=== PATIENT | male | born 1965 | race Two or more races ===

== ENCOUNTER 2020-06-17 11:24 | Outpatient (REF) | payer OTHER, SELFPAY ==
--- NOTE | 2020-06-17 11:34 | XR_ITS ---
EXAMINATION: XR ANKLE, RIGHT CLINICAL INFORMATION: Pain COMPARISON: None TECHNIQUE: AP, lateral, and mortise views of the right ankle. FINDINGS: Bone alignment is normal. No fracture or dislocation is seen. There may be an ankle joint effusion. The ankle mortise is otherwise normal. There is lateral soft tissue swelling. There is a plantar calcaneal spur. XR/XR ankle RT 2V IMPRESSION: No fracture or dislocation. Lateral soft tissue swelling. Question ankle joint effusion.
== END 2020-06-17 11:25 | disposition home or self-care (01) ==
LOC: HO.XRAY 11:24
PROVIDERS: Visit Provider Emergency Medicine
DX: M25.571 Pain in right ankle and joints of right foot (principal)
CPT/HCPCS: 73600

== ENCOUNTER 2020-07-15 09:00 | Outpatient (RCR) | payer OTHER, SELFPAY | END 2020-07-22 08:16 | disposition home or self-care (01) | LOC: HO.PTCHIC 09:00 | PROVIDERS: PCP Internal Medicine Geriatric Medicine; Visit Provider Family Medicine | DX: M25.571 Pain in right ankle and joints of right foot (principal) | CPT/HCPCS: 97110; 97161 ==

== ENCOUNTER → 2020-08-28 14:38 | Outpatient (BNVA) | payer OTHER, SELFPAY | PROVIDERS: PCP Internal Medicine Geriatric Medicine; Visit Provider Physician Assistant Medical | DX: Z76.89 Persons encountering health services in other specified circumstances (principal) | CPT/HCPCS: G0296 ==

== ENCOUNTER 2020-10-01 12:47 | Outpatient (REF) | payer OTHER, SELFPAY ==
--- NOTE | ~2020-10-01 | CT_ITS ---
EXAMINATION: CT CHEST SCREENING CLINICAL INFORMATION: Smoking history COMPARISON: Previous chest CT scans most recent April 2018 TECHNIQUE: Multidetector volumetric CT imaging of the chest is performed without contrast using low dose technique. Additional 2D coronal and sagittal reformatted images and axial 3D maximum intensity projection (MIP) images are generated on the CT workstation. This CT examination was performed using dose optimization techniques as appropriate, variously including the following: *Automated exposure control *Adjustment of mA and/or kV according to patient size (this includes techniques or standardized protocols for targeted exams where dose is matched to indication/reason for exam; i.e. extremities or head) *Use of iterative reconstruction technique DLP: 63 mGy-cm FINDINGS: LUNGS: There are small bilateral pulmonary nodules that are stable. Largest pulmonary nodule is a 4 x 8 mm peripheral or subpleural right lower lobe nodule adjacent to the fissure axial image 237 series 5. This likely represents a subpleural lymph node. No new pulmonary nodule is seen. There is scarring or subsegmental atelectasis in the lingula. The lungs are otherwise clear. No endobronchial or endotracheal lesion is seen. MEDIASTINUM: The mediastinum is normal. PLEURA: There is no pleural effusion. No pleural mass or thickening. AXILLA: No lymphadenopathy. UPPER ABDOMEN: There is a low-attenuation right adrenal nodule measuring 2 cm that is stable. The may be diverticulosis of the colon. OSSEOUS STRUCTURES: Unremarkable. CT/CT lung screening IMPRESSION: Stable pulmonary nodules. ASSESSMENT: Lung-RADS category 2: Benign RECOMMENDATION: Annual low-dose chest CT follow-up recommended.
== END 2020-10-01 12:48 | disposition home or self-care (01) ==
LOC: HO.CT 12:47
PROVIDERS: PCP Internal Medicine Geriatric Medicine; Visit Provider Physician Assistant Medical
DX: Z12.2 Encounter for screening for malignant neoplasm of respiratory organs (principal); F17.210 Nicotine dependence, cigarettes, uncomplicated
CPT/HCPCS: 71271

== ENCOUNTER 2020-11-05 14:46 | Outpatient (REF) | payer OTHER, SELFPAY | END 2020-11-05 14:47 | disposition home or self-care (01) | LOC: HO.LAB 14:46 | PROVIDERS: PCP Internal Medicine Geriatric Medicine; Visit Provider Surgery | DX: L02.214 Cutaneous abscess of groin (principal) | CPT/HCPCS: 10061; 87071; 87205 ==

== ENCOUNTER 2021-02-25 10:05 | Outpatient (REF) | payer OTHER, SELFPAY ==
--- NOTE | ~2021-02-25 | XR_ITS ---
EXAMINATION: XR SHOULDER, LEFT CLINICAL INFORMATION: Left shoulder pain. COMPARISON: None TECHNIQUE: AP external rotation, Grashey, scapular Y, and axillary views of the left shoulder. FINDINGS: The bones and soft tissues are normal. No fracture. Glenohumeral and acromioclavicular alignment is anatomic with normal joint space. No abnormal soft tissue calcifications. XR/XR shoulder LT min 2V IMPRESSION: Unremarkable examination.
== END 2021-02-25 10:06 | disposition home or self-care (01) ==
LOC: HO.XRAY 10:05
PROVIDERS: PCP Internal Medicine Geriatric Medicine; Visit Provider Internal Medicine Geriatric Medicine
DX: M25.512 Pain in left shoulder (principal)
CPT/HCPCS: 73030

== ENCOUNTER → 2021-03-11 08:23 | Outpatient (BNVA) | payer OTHER, SELFPAY | PROVIDERS: PCP Internal Medicine Geriatric Medicine; Referring Provider Internal Medicine Geriatric Medicine; Visit Provider Surgery ==

== ENCOUNTER 2021-03-31 07:06 | Outpatient (REF) | payer OTHER, SELFPAY ==
[2021-03-31 07:36] VITALS: BP 131/77; PULSE 62; RESP 19; TEMP 36.4; O2SAT 97; BMI 29.2
--- NOTE | 2021-03-31 08:11 | W.PM.OPN ---
Operative Note Operative Note Date of Service: 03/31/21 Narrative: Preop diagnosis: Epidermal cyst, left neck Postop diagnosis: Epidermal cyst, left neck Procedure: Excision of epidermal cyst, left neck under local anesthesia Surgeon: Kishan Montanez MD The patient is a 55-year-old male with the epidermal cyst on the left neck measuring about 1.2 cm in size. He understood the technique of excision under local anesthesia. He was aware of the risks, benefits, and alternatives He was brought to the minor procedure room. He was placed supine. The area of the cyst was prepped and draped. Lidocaine 1% was used for local anesthesia. An elliptical incision was made around this cyst using a blade 15. And this carried down through the full-thickness of the skin and subcutaneous fat excise the entire cyst with the capsule intact. This was sent as specimen. I closed the incision with full-thickness nylon 3-0 interrupted sutures. Dressings were applied He tolerated procedure well. There were no complications noted. Estimated blood loss was about 1 cc.
--- NOTE | 2021-03-31 08:14 | P.BOP_ITS ---
Brief Operative Note Date of Service: 03/31/21 Pre-op diagnosis: Preop diagnosis: Epidermal cyst, left neck Post-op diagnosis: same Procedure: Excision of epidermal cyst, left neck Surgeon: Kishan Montanez MD Anesthesia: local Was an Reading Efficiency Course Director used for this Procedure?: No Estimated blood loss (mL): 1 Pathology: other (Epidermal cyst) Condition: stable Disposition: PACU
== END 2021-03-31 07:07 | disposition home or self-care (01) ==
LOC: HO.MS 07:06
PROVIDERS: PCP Internal Medicine Geriatric Medicine; Visit Provider Surgery
PROC: (CPT 11422; principal; 2021-03-31 08:00)
DX: L72.0 Epidermal cyst (principal)
CPT/HCPCS: 11422; 88304

== ENCOUNTER → 2021-04-14 14:43 | Outpatient (BNVA) | payer OTHER, SELFPAY | PROVIDERS: PCP Internal Medicine Geriatric Medicine; Referring Provider Internal Medicine Geriatric Medicine; Visit Provider Surgery ==

== ENCOUNTER → 2021-06-01 08:35 | Outpatient (BNVA) | payer OTHER, SELFPAY | PROVIDERS: PCP Internal Medicine Geriatric Medicine; Referring Provider Internal Medicine Geriatric Medicine; Visit Provider Nurse Practitioner Family ==

== ENCOUNTER → 2021-06-14 14:42 | Outpatient (BNVA) | payer OTHER, SELFPAY | PROVIDERS: PCP Internal Medicine Geriatric Medicine; Referring Provider Internal Medicine Geriatric Medicine; Visit Provider Surgery ==

== ENCOUNTER 2021-07-15 12:30 | Outpatient (REF) | payer OTHER, SELFPAY ==
[2021-07-15 12:37] VITALS: BP 127/75; PULSE 98; RESP 16; TEMP 37.4; O2SAT 99
[2021-07-15 12:38] VITALS: BMI 30.4
[2021-07-15 13:16] VITALS: BP 118/70; PULSE 80; RESP 16; O2SAT 95
--- NOTE | 2021-07-15 13:16 | W.PM.OPN ---
Operative Note Operative Note Date of Service: 07/15/21 Narrative: Preop diagnosis: Epidermal cyst, left buttock Postop diagnosis: The same Procedure: Excision of epidermal cyst from the left buttock under local anesthesia surgeon: Kishan Montanez MD Patient is a 56-year-old male with note of a cystic induration in the left buttock consistent with an epidermal cyst. He wanted this removed. He understood technique of excision under local anesthesia and and he was aware of the risks, benefits, and alternatives. He was brought to the minor procedure room and placed in prone position. The area of the cyst on the left buttock was prepped and draped. Lidocaine 1% was used for local anesthesia. Incision was made on the skin overlying this cystic induration using blade 15 and this was carried down through the full-thickness of the skin and subcutaneous fat. We then proceeded to excise this entire cystic induration using blade 15 circumferentially until this was delivered. The cyst was about 1 point 3 cm in diameter. The capsule was intact.This was sent as a specimen. I closed the incision with full-thickness nylon 3-0 interrupted sutures. Dressings were applied and the procedure was completed The patient tolerated procedure well with no complication noted. Estimated blood loss was about 2 cc The patient was discharged with wound care instructions.
== END 2021-07-15 12:31 | disposition home or self-care (01) ==
LOC: HO.MS 12:30
PROVIDERS: PCP Internal Medicine Geriatric Medicine; Visit Provider Surgery
PROC: (CPT 11402; principal; 2021-07-15 13:00)
DX: L72.0 Epidermal cyst (principal); R23.4 Changes in skin texture
CPT/HCPCS: 11402; 88304

== ENCOUNTER → 2021-07-26 14:38 | Outpatient (BNVA) | payer OTHER, SELFPAY | PROVIDERS: PCP Internal Medicine Geriatric Medicine; Referring Provider Internal Medicine Geriatric Medicine; Visit Provider Surgery ==

== ENCOUNTER → 2021-08-26 08:45 | Outpatient (BNVA) | payer OTHER, SELFPAY | PROVIDERS: PCP Internal Medicine Geriatric Medicine; Referring Provider Internal Medicine Geriatric Medicine; Visit Provider Surgery ==

== ENCOUNTER → 2021-08-30 14:32 | Outpatient (REF) | payer OTHER, SELFPAY | LOC: HO.SL 14:32 | PROVIDERS: PCP Internal Medicine Geriatric Medicine; Visit Provider Internal Medicine Cardiovascular Disease | DX: Z13.89 Encounter for screening for other disorder (principal) ==

== ENCOUNTER → 2021-09-01 09:40 | Outpatient (BNVA) | payer OTHER, SELFPAY | PROVIDERS: PCP Internal Medicine Geriatric Medicine; Referring Provider Internal Medicine Geriatric Medicine; Visit Provider Surgery ==

== ENCOUNTER → 2021-09-07 12:27 | Outpatient (BNVA) | payer OTHER, SELFPAY | PROVIDERS: PCP Internal Medicine Geriatric Medicine; Referring Provider Internal Medicine Geriatric Medicine; Visit Provider Nurse Practitioner Family ==

== ENCOUNTER → 2021-09-16 08:45 | Outpatient (REF) | payer OTHER, SELFPAY | LOC: HO.SL 08:45 | PROVIDERS: Absent Provider Internal Medicine Geriatric Medicine; PCP Internal Medicine Geriatric Medicine; Visit Provider Internal Medicine Cardiovascular Disease | DX: G47.33 Obstructive sleep apnea (adult) (pediatric) (principal) | CPT/HCPCS: 95806 ==

== ENCOUNTER 2021-12-09 08:13 | Outpatient (REF) | payer OTHER, SELFPAY ==
[2021-12-09 10:03] LABS: MANUAL DIFF FLAG NO
[2021-12-09 11:04] LABS: Basophils Absolute Auto 0.1 X10*3/uL (0.0-0.2); Basophils Percent Auto 0.6 % (0-2); Eosinophils Absolute Auto 0.2 X10*3/uL (0.0-0.4); Eosinophils Percent Auto 1.7 % (0-4); Hematocrit 52.3 % (42.0-52.0); Hemoglobin 16.8 g/dl (14.0-18.0); Imm Gran Abs Auto 0.05 X10*3/uL (0.00-0.03); Imm Gran Pct Auto 0.6 % (0.0-0.4); Lymphocytes Absolute Auto 1.6 X10*3/uL (1.2-4.9); Lymphocytes Percent Auto 18.3 % (20-40); Mean Corpuscular HGB Conc 32.1 g/dl (31.0-36.0); Mean Corpuscular Hemoglobin 29.9 pg (27.0-33.0); Mean Corpuscular Volume 93.2 fL (80.0-98.0); Mean Platelet Volume 10.7 fL (9.4-12.4); Monocytes Absolute Auto 0.7 X10*3/uL (0.1-1.2); Monocytes Percent Auto 7.9 % (2-11); Neutrophils Absolute Auto 6.1 x10*3/uL (2.0-8.3); Neutrophils Percent Auto 70.9 % (45-73); Platelet Count 251 X10*3/uL (160-400); Red Blood Count 5.61 X10*6/uL (4.60-5.80); Red Cell Distribution Width 13.1 % (11.0-16.0); White Blood Count 8.6 X10*3/uL (4.8-10.8)
[2021-12-09 12:10] LABS: Thyroid Stimulating Hormone 1.45 uIU/mL (0.32-4.0)
[2021-12-09 12:14] LABS: Alanine Aminotransferase 29 U/L (0-40); Albumin Level 4.7 g/dL (3.5-5.0); Alkaline Phosphatase 71 U/L (39-117); Anion Gap 14 (12-20); Aspartate Amino Transferase 22 U/L (5-37); Bilirubin Total 0.4 mg/dL (0.0-1.0); Blood Urea Nitrogen 18 mg/dL (9-16); Calcium 9.8 mg/dL (8.4-10.2); Carbon Dioxide 26 mmol/L (22-29); Chloride 102 mmol/L (96-108); Estimated Glomerular Filt Rate > 60; Glucose Random 85 mg/dL (60-115); Potassium 4.7 mmol/L (3.3-5.1); Sodium 137 mmol/L (135-145); Total Protein 7.5 g/dL (6.5-8.0)
== END 2021-12-09 08:14 | disposition home or self-care (01) ==
LOC: HO.LAB 08:13
PROVIDERS: PCP Internal Medicine Geriatric Medicine; Referring Provider Internal Medicine Geriatric Medicine; Visit Provider Physician Assistant
DX: K52.9 Noninfective gastroenteritis and colitis, unspecified (principal); K59.09 Other constipation; K21.9 Gastro-esophageal reflux disease without esophagitis; G89.29 Other chronic pain; R10.9 Unspecified abdominal pain; F17.210 Nicotine dependence, cigarettes, uncomplicated; Z88.8 Allergy status to other drugs, medicaments and biological substances; Z79.899 Other long term (current) drug therapy
CPT/HCPCS: 36415; 80053; 84443; 85025

== ENCOUNTER 2021-12-09 09:35 | Outpatient (REF) | payer OTHER, SELFPAY ==
[2021-12-11 10:02] LABS: H Pylori Breath Test Negative (Negative)
== END 2021-12-09 09:36 | disposition home or self-care (01) ==
LOC: HO.LNP 09:35
PROVIDERS: Visit Provider Physician Assistant
DX: K21.9 Gastro-esophageal reflux disease without esophagitis (principal); Z11.0 Encounter for screening for intestinal infectious diseases
CPT/HCPCS: 83013

== ENCOUNTER 2021-12-30 10:58 | Outpatient (REF) | payer OTHER, SELFPAY ==
--- NOTE | ~2021-12-30 | US_ITS ---
EXAMINATION: US ABDOMEN COMPLETE CLINICAL INFORMATION: Unspecified abdominal pain. COMPARISON: CT abdomen and pelvis 02/20/2020. Renal ultrasound 10/20/2016. Ultrasound abdomen 11/18/2015. TECHNIQUE: Real-time imaging of the abdominal viscera. FINDINGS: PANCREAS: Normal. ABDOMINAL AORTA: The proximal, mid, and distal segments are normal in caliber. INFERIOR VENA CAVA: Visualized portions are normal. LIVER: The liver is normal in size. The liver contour is normal. Liver echotexture is slightly increased. No focal hepatic lesion. There is no intrahepatic biliary duct dilatation seen. GALLBLADDER: Normal. The gallbladder is physiologically distended without evidence of stones, sludge, polyps, wall thickening or pericholecystic fluid. COMMON BILE DUCT: Normal in caliber measuring 0.3 cm in diameter. RIGHT KIDNEY: There is mild pelviectasis. No hydronephrosis. No renal calculi or focal parenchymal lesions. The kidney measures 13.3 cm in maximum dimension. LEFT KIDNEY: There is a 2 to 3 mm echogenic density in the lower pole questionable for a small stone. There is mild pelviectasis. No hydronephrosis. No focal parenchymal lesions. The kidney measures 12.3 cm in maximum dimension. SPLEEN: Normal. The spleen measures 11 cm in maximum dimension. FREE FLUID: None. US/US abdomen complete IMPRESSION: Slightly echogenic liver. Mild bilateral pelviectasis. Question small left renal stone.
== END 2021-12-30 10:59 | disposition home or self-care (01) ==
LOC: HO.US 10:58
PROVIDERS: Visit Provider Internal Medicine Gastroenterology
DX: R10.9 Unspecified abdominal pain (principal); K21.9 Gastro-esophageal reflux disease without esophagitis
CPT/HCPCS: 76700

== ENCOUNTER 2022-03-11 15:32 | Outpatient (REF) | payer OTHER, SELFPAY ==
--- NOTE | ~2022-03-11 | CT_ITS ---
EXAMINATION: CT CHEST SCREENING CLINICAL INFORMATION: Nicotine dependence. Current smoker. COMPARISON: None. TECHNIQUE: Multidetector volumetric CT imaging of the chest is performed without contrast using low dose technique. Additional 2D coronal and sagittal reformatted images and axial 3D maximum intensity projection (MIP) images are generated on the CT workstation. This CT examination was performed using dose optimization techniques as appropriate, variously including the following: *Automated exposure control *Adjustment of mA and/or kV according to patient size (this includes techniques or standardized protocols for targeted exams where dose is matched to indication/reason for exam; i.e. extremities or head) *Use of iterative reconstruction technique DLP: 59 mGy-cm. FINDINGS: LUNGS: There is centrilobular emphysema without acute pneumonic process. There are several pulmonary nodules: A 3 mm nodule right upper lobe anterior segment image 130/6, a 2 mm nodule right upper lobe axial image 152/6, several micronodules measuring 1 mm in the left upper lobe peripherally based, a 2 mm nodule superior segment left lower lobe axial image 106/6, a 3 mm nodule along right minor fissure axial image 203/6, likely lymph node, an 8 mm nodule right middle lobe opacity right major fissure axial image 231/6, likely small lymph node. MEDIASTINUM: The thyroid lobes are symmetrical and normal. The central trachea and bronchi are widely patent. Heart size and the great vessels are normal caliber. There is no pericardial effusion. No abnormal-sized mediastinal or hilar lymph nodes seen. PLEURA: There is no pleural effusion. No pleural mass or thickening. AXILLA: No lymphadenopathy. UPPER ABDOMEN: Visualized liver, spleen, pancreas and bilateral adrenal glands are unremarkable. There is a 2 cm right adrenal lesion measuring - Hounsfield units likely adrenal myolipoma. OSSEOUS STRUCTURES: No lytic or sclerotic process seen. CT/CT lung screening IMPRESSION: Mild centrilobular emphysema with several pulmonary nodules measuring 5 mm. Small nodules along the right minor and major fissure, likely a small lymph nodes. ASSESSMENT: Lung-RADS category 2: Benign. RECOMMENDATION: Low-dose annual CT chest.
== END 2022-03-11 15:33 | disposition home or self-care (01) ==
LOC: HO.CT 15:32
PROVIDERS: PCP Internal Medicine Geriatric Medicine; Visit Provider Physician Assistant Medical
DX: J43.2 Centrilobular emphysema (principal); R91.8 Other nonspecific abnormal finding of lung field; F17.210 Nicotine dependence, cigarettes, uncomplicated
CPT/HCPCS: 71271

== ENCOUNTER 2022-05-16 10:00 | Outpatient (REF) | payer OTHER, SELFPAY ==
[2022-05-16 12:50] VITALS: BMI 30.8
[2022-05-16 12:51] VITALS: BP 109/67; PULSE 64; RESP 16; TEMP 36.7; O2SAT 96
[2022-05-16 14:30] VITALS: BP 128/86; PULSE 63; RESP 16; O2SAT 98
== END 2022-05-16 10:01 | disposition home or self-care (01) ==
LOC: HO.MS 10:00
PROVIDERS: PCP Internal Medicine Geriatric Medicine; Visit Provider Ophthalmology
PROC: (CPT 67800; principal; 2022-05-16 14:00)
DX: H00.14 Chalazion left upper eyelid (principal)
CPT/HCPCS: 67800

== ENCOUNTER 2022-05-25 09:47 | Day surgery (SDC) | payer OTHER, SELFPAY ==
--- NOTE | 2022-05-24 12:23 | P.CONAN_ITS ---
Documented by User: Vania Crow NP 05/24/22 12:26 HPI - Anesthesia Eval Consult details Narrative: 57yo M for Upper Endoscopy and Colonoscopy [facility] Active Problems Active Problems: All Active Problems (Updated 05/19/22 @ 15:30 by Torrie Linares, LUCITA) Obstructive sleep apnea (Acute) Excessive daytime sleepiness (Acute) Acid reflux (Acute) Chronic abdominal pain (Acute) Infected epithelial inclusion cyst (Acute) Epidermal cyst (Acute) Epidermal cyst of neck (Acute) Abscess of groin, left (Acute) Nicotine dependence, cigarettes, uncomplicated (Acute) Past Medical History Medical History Abscess of groin, left Chronic abdominal pain Epidermal cyst of neck Infected epithelial inclusion cyst Nicotine dependence, cigarettes, uncomplicated Family History Family History Father Colon cancer Skin cancer Mother Skin cancer Brother Stomach cancer, Onset Age: 57 Surgical History Surgical History H/O colonoscopy (2015) H/O excision of mass (11/14/18) H/O excision of mass History of epidermal inclusion cyst excision (~07/15/21) History of esophagogastroduodenoscopy (EGD) History of removal of cyst History of umbilical hernia repair (03/19/19) Social History Social History Alcohol intake: former Patient Tobacco Use Status: Current everyday Tobacco user Tobacco use type: Cigarette Cigarette Packs Per Day: 0.5 Cigarettes Per Day: 10.0 Years Smoked: 41 (onset 14) Use of substances other than those prescribed or required for medical reasons: No Are you DNR?: No Advance Directives: No Advance Directives Information Provided: Yes Meds Allergies Allergy/AdvReac Type Severity Reaction Status Date / Time Iodinated Contrast Media Allergy Intermediate Hives Verified 05/19/22 15:28 [IV CONTRAST] iopromide [From Ultravist] Allergy Intermediate PATIENT Verified 05/19/22 15:28 DEVELOPED HIVES AND REDNESS ON THROAT AND CHEST Home Medications Medication Instructions Recorded Confirmed Last Taken Type ergocalciferol (vitamin D2) 1,250 1,250 mcg PO QWEEK 11/05/20 05/19/22 Unknown History mcg (50,000 unit) capsule omega-3 fatty acids 1,000 mg 1,000 mg PO DAILY 11/05/20 05/19/22 Unknown History capsule atorvastatin 20 mg tablet 20 mg PO DAILY 06/01/21 05/19/22 Unknown History tamsulosin 0.4 mg capsule 0.4 mg PO DAILY 01/26/22 05/19/22 Unknown History Exam Exam Date and Time: May 24, 2022 1223 Height,Weight and Vital Signs: Height 57 ft 7 in Weight 88.451 kg Pertinent Lab Results Pertinent Lab Results: Laboratory Tests 12/09/21 12/09/21 10:01 10:01 WBC 8.6 Hgb 16.8 Hct 52.3 H Plt Count 251 Sodium 137 Potassium 4.7 Chloride 102 Carbon Dioxide 26 BUN 18 H Creatinine 0.86 Assessment and Plan Assessment Anesthesia Assessment: Chart Reviewed Documented by User: Yanely Arciniega MD 05/25/22 10:31 [facility] Past Medical History Medical History Abscess of groin, left Chronic abdominal pain Epidermal cyst of neck Infected epithelial inclusion cyst Nicotine dependence, cigarettes, uncomplicated Family History Family History Father Colon cancer Skin cancer Mother Skin cancer Brother Stomach cancer, Onset Age: 57 Family history of problems with anesthesia: No Surgical History Surgical History H/O colonoscopy (2015) H/O excision of mass (11/14/18) H/O excision of mass History of epidermal inclusion cyst excision (~07/15/21) History of esophagogastroduodenoscopy (EGD) History of removal of cyst History of umbilical hernia repair (03/19/19) History of Problems with Anesthesia: No Social History Social History Alcohol intake: former Patient Tobacco Use Status: Current everyday Tobacco user Tobacco use type: Cigarette Cigarette Packs Per Day: 0.5 Cigarettes Per Day: 10.0 Years Smoked: 41 (onset 14) Use of substances other than those prescribed or required for medical reasons: No Are you DNR?: No Advance Directives: No Advance Directives Information Provided: Yes Meds Allergies Allergy/AdvReac Type Severity Reaction Status Date / Time Iodinated Contrast Media Allergy Intermediate Hives Verified 05/19/22 15:28 [IV CONTRAST] iopromide [From Ultravist] Allergy Intermediate PATIENT Verified 05/19/22 15:28 DEVELOPED HIVES AND REDNESS ON THROAT AND CHEST Home Medications Medication Instructions Recorded Confirmed Last Taken Type ergocalciferol (vitamin D2) 1,250 1,250 mcg PO QWEEK 11/05/20 05/19/22 Unknown History mcg (50,000 unit) capsule omega-3 fatty acids 1,000 mg 1,000 mg PO DAILY 11/05/20 05/19/22 Unknown History capsule atorvastatin 20 mg tablet 20 mg PO DAILY 06/01/21 05/19/22 Unknown History tamsulosin 0.4 mg capsule 0.4 mg PO DAILY 01/26/22 05/19/22 Unknown History Exam Airway Mallampati Class: II (Missing 4 teeth, denies anything loose) TM Dist: >3cm Neck ROM: Full Heart: rrr Lungs: cta Assessment and Plan Assessment Anesthesia Assessment: Anesthesia Plan Discussed and Chart Reviewed Final Anesthetic Review Family History of Problems with Anesthesia: No History of Problems with Anesthesia: No NPO: Yes ASA Class: II Final Preanesthetic Review: No Changes in Pt Med Stat, Meds/Allgs Chart Reviewed and Consent Obtained/Reviewed Patient Risk: Intermediate Procedure Risk: Intermediate Anesthetic Plan Anesthetic Plan: MAC: Disposition: Standard PACU
[2022-05-25 10:19] VITALS: BP 126/76; PULSE 74; RESP 18; TEMP 36.3; O2SAT 96; BMI 30.8
--- NOTE | 2022-05-25 10:30 | MHC.SHP ---
Pre-Procedural Eval Section A Date of Service: 05/25/22 Section B Chief Complaint: abdominal pain,chronic pain,reflux disease Details of Present Illness: father with CRC Relevant Family History (Specify if Yes): Yes Relevant Social History: Tobacco Use Present Medications: see Short Stay Collaborative assessment Medical History: Significant History (ANA, smoking ) History of Previous Operations: Relevant previous surgery/procedure and date(s) (H/O colonoscopy (2015) H/O excision of mass (11/14/18) History of epidermal inclusion cyst excision (~07/15/21) History of esophagogastroduodenoscopy (EGD) History of removal of cyst History of umbilical hernia repair (03/19/19)) Allergies: Allergies Allergy/AdvReac Type Severity Reaction Status Date / Time Iodinated Contrast Media Allergy Intermediate Hives Verified 05/19/22 15:28 [IV CONTRAST] iopromide [From Ultravist] Allergy Intermediate PATIENT Verified 05/19/22 15:28 DEVELOPED HIVES AND REDNESS ON THROAT AND CHEST Review of Systems Sugical H&P ROS: Negative: Constitution, Cardiovascular, Respiratory, Neurological, Psychiatric, Hem-Onc, Allergic/Immunologic, Gastrointestinal, Genitourinary, Musculoskeletal, Integumentary, Endocrine and Eyes/Ears/Nose/Throat Exam Surgical H&P Exam: Normal: HEENT, Normal: Heart, Normal: Lungs, Normal: Extremities, Normal: Abdomen, Normal: Skin and Normal: Neurological Plan Diagnosis/Plan: Unchanged I have reviewed the history and physical and performed a pertinent physical examination on my patient. No changes have occurred unless specified.
--- NOTE | 2022-05-25 10:34 | P.OP_ITS ---
Operative Note Operative Note Date of Service: 05/25/22 Narrative: Operative Information Procedure Description: EGD, Colonoscopy Indication: abdominal pain,chronic pain,reflux disease Anesthesia: MAC FLEXIBLE TRANSORAL UPPER GASTROINTESTINAL ENDOSCOPY AND COLONOSCOPY PROCEDURE NOTE UPPER ENDOSCOPY Consent: Indications for the procedure and potential complications of bleeding, perforation, reaction to medications and missed diagnosis were discussed with the patient and informed consent was obtained. Instrument: Olympus GIF H 190 J mid size upper endoscope Monitoring: Vital signs and clinical assessment, continuous EKG monitoring, Pulse oximetry, Carbon Dioxide monitoring and blood pressure monitoring were done throughout the procedure. Procedure: The patient was placed in the left lateral decubitis position and pre-procedure medications were administered and a bite block was placed. The endoscope was inserted into the mouth and advanced under direct vision to the third part of duodenum. A careful inspection was made as the upper endoscope was withdrawn including a retroflexed examination of the proximal stomach; Findings and interventions are described below. Findings: Larynx:normal Esophagus: GE junction at 38 cm, diaphragm hiatus at 38 cm, mild esophagitis at GEJ, bx taken from here and from distal and proximal esophagus Stomach: Normal mucosa. Biopsies were obtained. Grade 2 flap valve on retroflexed examination of the cardia. There appeared to be minimal gastric peristalsis. Duodenum: Bulbar duodenitis, bx taken Intervention: Biopsies as noted above COLONOSCOPY Instrument: Olympus variable stiffness pediatric scope 190L Colonoscopy Monitoring: Vital signs and clinical assessment, continuous EKG monitoring, Pulse oximetry, Carbon Dioxide monitoring and blood pressure monitoring were done throughout the procedure. Colon withdrawal time was 12 minutes. Procedure: The patient was placed in the left lateral decubitis position and pre-procedure medications were administered. After a digital rectal examination of the ano-rectum, the video colonoscope was inserted into the rectum and advanced through the colon to the cecum/TI. The colonoscope was slowly withdrawn in a retrograde panoramic fashion and the colon mucosa was carefully examined including a retroflexed view of the rectum. Findings and interventions are described below. Procedure Difficulty: easy Findings: Terminal Ileum-normal, bx taken Random colon bx taken Cecum: 7-8 mm sessile polyp removed with cold snare, few tics seen Ascending Colon: normal Transverse Colon -normal Descending Colon:normal Sigmoid Colon:moderate severe diverticulosis, with luminal narrowing and mucosal hypertrophy Rectum: Retroflexion with small internal hemorrhoids, grade I Anorectum - normal Colon preparation: [place] Bowel Preparation Scale Right colon; 1-2 Transverse colon: 2 Left colon; 2 (0 = Unprepared colon segment with mucosa not seen due to solid stool that cannot be cleared. 1 = Portion of mucosa of the colon segment seen, but other areas of the colon segment not well seen due to staining, residual stool and/or opaque liquid. 2 = Minor amount of residual staining, small fragments of stool and/or opaque liquid, but mucosa of colon segment seen well. 3 = Entire mucosa of colon segment seen well with no residual staining, small fragments of stool or opaque liquid) Impression and Post Procedure Diagnosis: Endoscopy Findings: duodenitis esophagitis possible gastroparesis Colonoscopy Findings: polyp internal hemorrhoids diverticular disease Plan: Await Pathology results Repeat Colonoscopy in 5 years due to polyp or earlier if clinically indicated High fiber diet leaflet avoid straining at stool, epsom salts and sitz bath, anusol supps or cream pain may be from the diverticulosis, should avoid constipation consider GES if ongoing sx as there appeared to be reduced gastric motility. Above findings were reviewed with the patient and relevant handouts were provided if indicated.
[2022-05-25] MEDS: Lactated Ringers 1,000 ML 100 ML IVCONT (10:40)
[2022-05-25 11:19] VITALS: BP 110/73; PULSE 99; RESP 16; TEMP 36.9; O2SAT 96
[2022-05-25 11:34] VITALS: BP 118/76; PULSE 94; RESP 20; TEMP 36.9; O2SAT 98
== END 2022-05-25 12:07 | disposition home or self-care (01) ==
PROVIDERS: PCP Internal Medicine Geriatric Medicine; Visit Provider Internal Medicine Gastroenterology
PROC: (CPT 45385; principal; 2022-05-25 11:50)
DX: R10.9 Unspecified abdominal pain (principal); G89.29 Other chronic pain; Z80.0 Family history of malignant neoplasm of digestive organs; D12.0 Benign neoplasm of cecum; K57.30 Diverticulosis of large intestine without perforation or abscess without bleeding; K64.0 First degree hemorrhoids; K21.9 Gastro-esophageal reflux disease without esophagitis; K31.84 Gastroparesis; K29.80 Duodenitis without bleeding; K20.80 Other esophagitis without bleeding; K44.9 Diaphragmatic hernia without obstruction or gangrene; G47.33 Obstructive sleep apnea (adult) (pediatric); Z79.899 Other long term (current) drug therapy; Z91.041 Radiographic dye allergy status; F17.210 Nicotine dependence, cigarettes, uncomplicated
CPT/HCPCS: 45385; 45380; 43239; 88305; 88342

== ENCOUNTER 2022-09-07 10:12 | Outpatient (REF) | payer OTHER, SELFPAY ==
[2022-09-07 17:34] LABS: Urine Cytology See Pathology rpt
== END 2022-09-07 10:13 | disposition home or self-care (01) ==
LOC: HO.LAB 10:12
PROVIDERS: PCP Internal Medicine Geriatric Medicine; Visit Provider Nurse Practitioner Family
DX: R31.29 Other microscopic hematuria (principal); R35.0 Frequency of micturition; R39.15 Urgency of urination
CPT/HCPCS: 51798; 87086; 88112

== ENCOUNTER 2022-09-21 07:49 | Outpatient (REF) | payer OTHER, SELFPAY ==
[2022-09-21 08:37] LABS: Blood Urea Nitrogen 18 mg/dL (9-16); Estimated Glomerular Filt Rate > 60
[2022-09-21 08:56] LABS: PSA,Total (Free>4and<10) 1.01 ng/mL (0.00-4.00)
== END 2022-09-21 07:50 | disposition home or self-care (01) ==
LOC: HO.LAB 07:49
PROVIDERS: PCP Internal Medicine Geriatric Medicine; Visit Provider Nurse Practitioner Family
DX: N40.0 Benign prostatic hyperplasia without lower urinary tract symptoms (principal); R31.29 Other microscopic hematuria; Z12.5 Encounter for screening for malignant neoplasm of prostate
CPT/HCPCS: 36415; 82565; 84153; 84520

== ENCOUNTER 2022-09-29 07:34 | Outpatient (REF) | payer OTHER, SELFPAY ==
--- NOTE | ~2022-09-29 | CT_ITS ---
EXAMINATION: CT KIDNEY STONE CLINICAL INFORMATION: Microscopic hematuria. COMPARISON: Previous abdominal ultrasound December [address] of the abdomen and pelvis January 2020. TECHNIQUE: Axial images through the abdomen and pelvis without IV contrast. Sagittal and coronal reconstructions on the technologist workstation were performed. This CT examination was performed using dose optimization techniques as appropriate, variously including the following: *Automated exposure control *Adjustment of mA and/or kV according to patient size (this includes techniques or standardized protocols for targeted exams where dose is matched to indication/reason for exam; i.e. extremities or head) *Use of iterative reconstruction technique. DLP: 428 mGy-cm FINDINGS: The lung bases are clear. The liver and gallbladder are normal. The pancreas is normal. The spleen is normal. There is a 2 x 3 cm stable low-attenuation right adrenal lesion suggestive of a lipid-rich adenoma. The left adrenal gland is normal. There is a small 2 mm nonobstructing left upper pole renal stone. The kidneys are otherwise normal. No hydronephrosis, ureteral dilatation or ureteral stone. The bladder is normal. There is mild diverticulosis of the colon. Small and large bowel are otherwise normal. No ascites or adenopathy. Normal appendix. Normal stomach. There are bilateral inguinal hernias, left greater than right. There is increased attenuation questionable for postsurgical changes in the periumbilical region. Vascular structures are normal. Bony structures are normal. CT/CT kidney stone IMPRESSION: Small nonobstructing left renal stone. 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
== END 2022-09-29 07:35 | disposition home or self-care (01) ==
LOC: HO.CT 07:34
PROVIDERS: Visit Provider Nurse Practitioner Family
DX: R31.29 Other microscopic hematuria (principal)
CPT/HCPCS: 74176

== ENCOUNTER → 2022-10-12 13:41 | Outpatient (BNVA) | payer OTHER, SELFPAY | PROVIDERS: PCP Internal Medicine Geriatric Medicine; Visit Provider Urology | DX: N40.1 Benign prostatic hyperplasia with lower urinary tract symptoms (principal); R35.0 Frequency of micturition | CPT/HCPCS: 52000 ==

== ENCOUNTER → 2022-10-13 07:49 | Outpatient (REF) | payer OTHER, SELFPAY ==
--- NOTE | ~2022-10-13 | NM_ITS ---
EXAMINATION: RADIONUCLIDE SOLID FOOD GASTRIC EMPTYING 4-HOUR STUDY CLINICAL INFORMATION: Early satiety. COMPARISON: No previous gastric emptying study is available for comparison. TECHNIQUE: A standard meal consisting of 4 oz of Egg Beaters brand tagged with 1.0 mCi Tc-99m Sulfur Colloid, 8 oz water and 2 slices of toast with jelly was administered orally to the patient. Images were obtained using a dual head gamma camera in the anterior and posterior projections over of the stomach immediately post ingestion and at hourly intervals up to 3 hours post ingestion. Images were not obtained at 4 hours due to the minimal retention at 3 hours. The anterior and posterior counts at each time interval were averaged using the geometric mean and expressed as percentage of the immediate post ingestion counts. FINDINGS: There is good visualization of activity in the stomach immediately post ingestion. As the study progresses, there is good clearance of activity from the stomach and visualization of progressively increasing small bowel activity. By the end of the study, there is almost no retention noted in the stomach. Retention in the stomach at each time interval was: 1 hour 54% (normal 37%-90%) 2 hours 18% (normal 30%-60%) 3 hours 3% 4 hours (Not Obtained) (normal 0%-10%) NM/NM gastric emptying study IMPRESSION: Normal solid food gastric emptying study.
== END ==
LOC: HO.NUCMED 07:49
PROVIDERS: PCP Internal Medicine Geriatric Medicine; Visit Provider Physician Assistant
DX: R68.81 Early satiety (principal)
CPT/HCPCS: 78264; A9541

== ENCOUNTER → 2022-12-21 12:49 | Outpatient (BNVA) | payer OTHER, SELFPAY | PROVIDERS: PCP Internal Medicine Geriatric Medicine; Visit Provider Nurse Practitioner Family ==

== ENCOUNTER → 2023-01-17 09:39 | Outpatient (BNVA) | payer OTHER, SELFPAY | PROVIDERS: PCP Internal Medicine Geriatric Medicine; Visit Provider Urology | DX: N40.0 Benign prostatic hyperplasia without lower urinary tract symptoms (principal); R35.0 Frequency of micturition; R39.15 Urgency of urination | CPT/HCPCS: 51798 ==

== ENCOUNTER → 2023-01-24 15:15 | Outpatient (REF) | payer OTHER, SELFPAY | LOC: HO.SL 15:15 | PROVIDERS: PCP Internal Medicine Geriatric Medicine; Visit Provider Nurse Practitioner Family | DX: G47.33 Obstructive sleep apnea (adult) (pediatric) (principal); G47.19 Other hypersomnia | CPT/HCPCS: 95806 ==

== ENCOUNTER 2023-02-24 10:11 | Outpatient (REF) | payer OTHER, SELFPAY ==
[2023-02-28 21:23] LABS: Lyme Abs Screen <0.90 index
== END 2023-02-24 10:12 | disposition home or self-care (01) ==
LOC: HO.CHCLDS 10:11
PROVIDERS: Visit Provider Emergency Medicine
DX: R21 Rash and other nonspecific skin eruption (principal)
CPT/HCPCS: 36415; 86617; 86618

== ENCOUNTER 2023-07-20 07:26 | Outpatient (REF) | payer OTHER, SELFPAY ==
--- NOTE | ~2023-07-20 | XR_ITS ---
EXAMINATION: XR CERVICAL SPINE CLINICAL INFORMATION: Pain, chronic. Patient had injury; fell on his left side. Technologist states the patient had yue on his clothing. COMPARISON: None available. TECHNIQUE: 8 views of the cervical spine. Visualization limited due to body habitus with particularly limited visualization of C6 and C7 vertebral bodies. FINDINGS: Straightening of the normal cervical lordosis. Multilevel cervical spondylosis. Minimal anterolisthesis of C5 on C6. Visualized cervical disc space heights are preserved. A staple overlies the upper right hemithorax on some views and recommend correlation with clinical exam for confirmation of location. XR/XR cervical spine 4V IMPRESSION: Mild multilevel cervical spondylosis. Correlation with clinical exam recommended to determine further management. If there is concern for fracture or other underlying pathology, MRI should be obtained for further evaluation.
== END 2023-07-20 07:27 | disposition home or self-care (01) ==
LOC: HO.XRAY 07:26
PROVIDERS: PCP Internal Medicine Geriatric Medicine; Visit Provider Internal Medicine Geriatric Medicine
DX: M54.2 Cervicalgia (principal); G89.29 Other chronic pain
CPT/HCPCS: 72050

== ENCOUNTER 2023-07-26 14:42 | Outpatient (AMB) | payer OTHER, SELFPAY ==
--- NOTE | 2023-07-26 14:45 | MHC.OFFVIS ---
Intake Intake Visit Reasons: 6 month (frequency) Intake Note: Patient is Present for Follow Up Urology Medication: None Antibiotic Allergies: None Blood Thinners: None PVR: 17 Allergies Iodinated Contrast Media [IV CONTRAST] Allergy (Intermediate, Verified 07/26/23 14:49) Hives iopromide [From Ultravist] Allergy (Intermediate, Verified 07/26/23 14:49) PATIENT DEVELOPED HIVES AND REDNESS ON THROAT AND CHEST HPI HPI Comments History of Present Illness Details Arsen This pleasant Azeri-speaking male. He is a patient of Dr. Ramirez. He is seen for the following urologic conditions - lower urinary tract symptoms Azeri translation provided by qualified medical laboratory manager Follow-up from dietary modification for lower urinary tract symptoms Known tight prostate on prior cystoscopy Still with urgency and frequency Recommend prostate incision Risks and benefits discussed Would like to proceed Lower urinary tract symptoms Urinary frequency Drinks 6-8 cups of coffee daily Current therapy terazosin 10 mg Cystoscopy 11/03 tight prostate - discussed procedure Concomitant obstructive sleep apnea mild PFSH Medical History Chronic abdominal pain Infected epithelial inclusion cyst Epidermal cyst of neck Abscess of groin, left Nicotine dependence, cigarettes, uncomplicated Surgical History H/O excision of mass History of esophagogastroduodenoscopy (EGD) History of epidermal inclusion cyst excision (~07/15/21) History of removal of cyst H/O excision of mass (11/14/18) H/O colonoscopy (2015) History of umbilical hernia repair (03/19/19) Family History Father Colon cancer Skin cancer Mother Skin cancer Brother Stomach cancer, Onset Age: 57 Social History Alcohol intake: former Patient Tobacco Use Status: Current everyday Tobacco user Tobacco use type: Cigarette Cigarette Packs Per Day: 0.5 Cigarettes Per Day: 10.0 Years Smoked: 41 (onset 14) Review of Systems Const Denies chills and Denies fever(s) Card Reports no additional complaints and Denies syncope Resp Denies cough GI Denies abdominal pain and Denies heartburn Reports as per HPI and Denies change in libido Neuro Denies syncope Psych Denies change in libido Endo Denies change in libido Physical Exam Const General: cooperative, healthy appearing, comfortable and no acute distress Orientation/consciousness: patient oriented x3 HEENT Face and sinus: Yes normal facial exam Mouth: moist mucous membranes Neck Neck: Yes normal visual inspection, Yes full ROM and Yes trachea midline Chest Chest palpation & inspection: normal inspection of the chest Resp Effort & Inspection: normal respiratory effort, able to speak in complete sentences and no respiratory distress GI Inspection: Yes normal to inspection Back/Spine/Pelvis Cervical Spine: normal cervical lordosis Thoracic/Lumbar Spine: thoracic and lumbar spine normal to inspection Skin General skin exam: no rashes or lesions noted Neuro General: patient oriented x3, gait normal, tone normal and moves all extremities Extrem General: Yes normal to inspection and Yes capillary refill normal Office Procedures Post Void Residual Post Residual Void Post Void Residual (PVR): 17 [id number] Void Residual by ultrasound Assessment & Plan Assessment & Plan (1) BPH (benign prostatic hyperplasia): Code(s): N40.0 - Benign prostatic hyperplasia without lower urinary tract symptoms Plan We discussed the nature of the decision and reasonable options for performing a prostate intervention. Interventions include TURP, GreenLight laser enucleation of the prostate, GreenLight laser ablation of the prostate, transurethral incision of the prostate, and I-Tend prostate procedure. Options such as medical therapy were discussed. The relative uncertainties and benefits related to each alternate procedure were adequately discussed. General surgical risks including, but not limited to, pain, bleeding, infection, myocardial infarction, pulmonary embolus, deep vein thrombosis and cerebrovascular accident which may result in further hospitalization were discussed. Full disclosure of the procedure as well as all major risks, benefits and complications were discussed including but not limited to damage to the urethra or bladder neck, recurrent BPH, retrograde ejaculation, bladder infection, urge, de roberto frequency, incomplete emptying, dysuria, remote chance of erectile dysfunction, epididymitis, and meatal stenosis. The success rate of the procedure was discussed. Success of the procedure in the short-term does not necessarily guarantee that long-term success will be maintained. Suitable follow up will need to be maintained. The patient showed understanding of discussion. An opportunity was provided for questions to be answered and wishes to proceed with the following procedure. - GreenLight laser prostate incision Orders: Orders AMB Urinalysis Automated Today Z13.9 - Encounter for screening, unspecified AMB Post Void Residual by ultrasound Today N40.0 - Benign prostatic hyperplasia without lower urinary tract symptoms Patient Instructions: Imaging studies, laboratory and physical exam results were discussed and reviewed in detail. No major barriers to patient understanding were identified. An opportunity to ask questions regarding the treatment plan was provided. All questions were answered. The patient expressed understanding and agreement with the above treatment plan. The patient is aware they should contact our office by phone for worsening of their current condition or the appearance of new urologic symptoms. Compliance is encouraged with any medications and followup testing that is ordered. It is a privilege to participate in the urologic care of your patient. If you have any questions or concerns regarding treatment for the above conditions, or other urologic issues, please do not hesitate to contact me. The office telephone contact is [phone]. This note is constructed using voice recognition software. While every effort has been made to ensure accuracy manager financial systems errors may have been included. Yours sincerely, Dr Aureliano Gayle MD, [facility] - Urology Providers of Expert, Compassionate Care for the Genitourinary System Coding Level of Care Code Est Pt Level 4 (62261) Diagnoses BPH (benign prostatic hyperplasia) N40.0 CPT Codes Post Residual Void - PVR CPT Code: 50740-Vumw Void Residual by ultrasound ([id number])
== END 2023-07-26 15:10 | disposition home or self-care (01) ==
PROVIDERS: PCP Internal Medicine Geriatric Medicine; Visit Provider Urology
DX: N40.0 Benign prostatic hyperplasia without lower urinary tract symptoms (principal)
CPT/HCPCS: 99214

== ENCOUNTER → 2023-07-26 14:42 | Outpatient (BNVA) | payer OTHER, SELFPAY | PROVIDERS: PCP Internal Medicine Geriatric Medicine; Visit Provider Urology | DX: N40.0 Benign prostatic hyperplasia without lower urinary tract symptoms (principal) | CPT/HCPCS: 51798 ==

== ENCOUNTER 2023-08-30 09:16 | Outpatient (AMB) | payer OTHER, SELFPAY ==
--- NOTE | 2023-08-30 09:40 | A.OFFVIS_ITS ---
Intake Vital Signs 08/30/23 09:55 Height 5 ft 7 in BP 121/68 Blood Pressure Location Rt brachial Position Sitting Pulse 69 Intake Visit Reasons: lump Lt side of neck Intake Note: This patient presents for an assessment for lump left posterior shoulder. Patient c/o; reports increasing in size, reports started off as a pimple, reports no pain. Floral Designer Required: Yes Floral Designer Language: Casino Cashier Manager Name: Loco Information Interpreted: non-clinical & clinical Accompanied by: Self / Same As Patient Allergies Iodinated Contrast Media [IV CONTRAST] Allergy (Intermediate, Verified 08/30/23 09:57) Hives iopromide [From Ultravist] Allergy (Intermediate, Verified 08/30/23 09:57) PATIENT DEVELOPED HIVES AND REDNESS ON THROAT AND CHEST Medication List - Last Reconciled 08/30/23 by Kishan Montanez MD albuterol sulfate 90 mcg/actuation 0 mcg inhalation atorvastatin 20 mg PO DAILY pravastatin 20 mg PO QAM HPI lump Lt side of neck HPI Details He is here because of a lump on the left shoulder. He said that this started small several months ago but has been increasing in size. He wants this removed He denies any drainage. Denies any history of trauma or insect bite. [facility] Medical History Chronic abdominal pain Infected epithelial inclusion cyst Epidermal cyst of neck Abscess of groin, left Nicotine dependence, cigarettes, uncomplicated Surgical History H/O excision of mass History of esophagogastroduodenoscopy (EGD) History of epidermal inclusion cyst excision (~07/15/21) History of removal of cyst H/O excision of mass (11/14/18) H/O colonoscopy (2015) History of umbilical hernia repair (03/19/19) Family History Father Colon cancer Skin cancer Mother Skin cancer Brother Stomach cancer, Onset Age: 57 Social History Alcohol intake: former Patient Tobacco Use Status: Current everyday Tobacco user Tobacco use type: Cigarette Cigarette Packs Per Day: 0.5 Cigarettes Per Day: 10.0 Years Smoked: 41 (onset 14) Review of Systems Const Denies chills and Denies fever(s) Card Denies chest pain, Denies dyspnea and Denies dyspnea on exertion Resp Denies cough, Denies dyspnea and Denies dyspnea on exertion GI Denies hematochezia and Denies change in bowel habits Denies hematuria and Denies difficulty urinating Musc Denies back pain and Denies limited range of motion Neuro Denies focal weakness and Denies convulsions Psych Denies depression and Denies mood swings Physical Exam Vital Signs: Last Vital Signs Pulse 69 08/30/23 09:55 BP 121/68 08/30/23 09:55 Const General: comfortable and no acute distress Orientation/consciousness: patient oriented x3 Neck Neck: Yes no lymphadenopathy Resp Auscultation: clear to auscultation bilaterally Cardio Rhythm: regular rhythm GI Palpation (GI): Soft to palpation, nontender and no guarding Back/Spine/Pelvis Other: The left shoulder towards the back is note of a mass, well-defined, about 2 cm in size, consistent with an epidermal cyst Neuro General: patient oriented x3 Assessment & Plan Assessment & Plan (1) Epidermal cyst: Code(s): L72.0 - Epidermal cyst Plan: He understands the technique of excision under local anesthesia. I explained the risks including but not limited to bleeding infections, as well as the benefits and alternatives. He wants to proceed This will be done in the office under local anesthesia on his next visit. Coding Level of Care Code Est Pt Level 3 (79393) Diagnoses Epidermal cyst L72.0
[2023-08-30 09:55] VITALS: BP 121/68; PULSE 69
== END 2023-08-30 10:29 | disposition home or self-care (01) ==
PROVIDERS: PCP Internal Medicine Geriatric Medicine; Visit Provider Surgery
DX: L72.0 Epidermal cyst (principal)
CPT/HCPCS: 99213

== ENCOUNTER → 2023-08-30 09:16 | Outpatient (BNVA) | payer OTHER, SELFPAY | PROVIDERS: PCP Internal Medicine Geriatric Medicine; Visit Provider Surgery ==

== ENCOUNTER 2023-09-13 14:39 | Outpatient (REF) | payer OTHER, SELFPAY | END 2023-09-13 14:40 | disposition home or self-care (01) | LOC: HO.LNP 14:39 | PROVIDERS: PCP Internal Medicine Geriatric Medicine; Visit Provider Surgery | DX: L72.0 Epidermal cyst (principal) | CPT/HCPCS: 11403; 88304 ==

== ENCOUNTER 2023-09-13 14:39 | Outpatient (AMB) | payer OTHER, SELFPAY ==
--- NOTE | 2023-09-13 14:41 | MHC.OFFVIS ---
Intake Intake Visit Reasons: excision cyst left shoulder Intake Note: This patient presents for in office procedure for excision cyst left shoulder. Patient c/o; reports no changes. Data Assistant Required: Yes Data Assistant Language: Solar Project Manager Name: Loco Information Interpreted: non-clinical & clinical Accompanied by: Self / Same As Patient Allergies Iodinated Contrast Media [IV CONTRAST] Allergy (Intermediate, Verified 09/13/23 14:42) Hives iopromide [From Ultravist] Allergy (Intermediate, Verified 09/13/23 14:42) PATIENT DEVELOPED HIVES AND REDNESS ON THROAT AND CHEST HPI excision cyst left shoulder HPI Details He is here for excision of an epidermal inclusion cyst from the left shoulder towards the back. [facility] Medical History Chronic abdominal pain Infected epithelial inclusion cyst Epidermal cyst of neck Abscess of groin, left Nicotine dependence, cigarettes, uncomplicated Surgical History H/O excision of mass History of esophagogastroduodenoscopy (EGD) History of epidermal inclusion cyst excision (~07/15/21) History of removal of cyst H/O excision of mass (11/14/18) H/O colonoscopy (2015) History of umbilical hernia repair (03/19/19) Family History Father Colon cancer Skin cancer Mother Skin cancer Brother Stomach cancer, Onset Age: 57 Social History Alcohol intake: former Patient Tobacco Use Status: Current everyday Tobacco user Tobacco use type: Cigarette Cigarette Packs Per Day: 0.5 Cigarettes Per Day: 10.0 Years Smoked: 41 (onset 15) Office Procedures Excision Details: He was in right lateral decubitus position. The area of the cyst on the left upper back near the shoulder was prepped and draped. Lidocaine 1% was used for local anesthesia. I made an elliptical incision on the skin surrounding this says using blade 15 and this was carried down through the full-thickness of the skin subcutaneous fat to excise the entire cyst. The cyst was about 2.1 cm in diameter I closed the incision with full-thickness nylon 3-0 interrupted sutures. Dressings were applied. The procedure was completed. He tolerated procedure well. There were no immediate complications. He was given wound care instructions. 99026-wtvjt/arms/legs 2.1-3cm Procedure code (CPT) selection complete Assessment & Plan Assessment & Plan (1) Epidermal cyst: Code(s): L72.0 - Epidermal cyst Plan: Excision done in the office. He tolerated procedure well. He was given wound care instructions. He can take Tylenol or ibuprofen for pain. Coding Level of Care Code Procedure Only Diagnoses Epidermal cyst L72.0 CPT Codes Trunk/Arms/Legs - CPT: 13453-ybagr/arms/legs 2.1-3cm ([id number])
== END 2023-09-13 15:12 | disposition home or self-care (01) ==
PROVIDERS: PCP Internal Medicine Geriatric Medicine; Visit Provider Surgery
DX: L72.0 Epidermal cyst (principal)
CPT/HCPCS: 11403

== ENCOUNTER 2023-09-27 08:26 | Outpatient (AMB) | payer OTHER, SELFPAY ==
--- NOTE | 2023-09-27 08:36 | A.OFFVIS_ITS ---
Intake Intake Visit Reasons: s/p excision cyst left shoulder Intake Note: This patient presents for a post -op assessment status post excision of cyst left shoulder. Patient c/o; reports no complaints at this time. Manager File Required: No Accompanied by: Self / Same As Patient Allergies Iodinated Contrast Media [IV CONTRAST] Allergy (Intermediate, Verified 09/27/23 08:37) Hives iopromide [From Ultravist] Allergy (Intermediate, Verified 09/27/23 08:37) PATIENT DEVELOPED HIVES AND REDNESS ON THROAT AND CHEST HPI s/p excision cyst left shoulder HPI Details He underwent excision of a cyst from the left shoulder last 09/14/2023, done under local anesthesia. He denies any complaints. [facility] Medical History Chronic abdominal pain Infected epithelial inclusion cyst Epidermal cyst of neck Abscess of groin, left Nicotine dependence, cigarettes, uncomplicated Surgical History History of removal of cyst (~09/13/23) H/O excision of mass History of esophagogastroduodenoscopy (EGD) History of epidermal inclusion cyst excision (~07/15/21) History of removal of cyst H/O excision of mass (11/14/18) H/O colonoscopy (2015) History of umbilical hernia repair (03/19/19) Family History Father Colon cancer Skin cancer Mother Skin cancer Brother Stomach cancer, Onset Age: 57 Social History Alcohol intake: former Patient Tobacco Use Status: Current everyday Tobacco user Tobacco use type: Cigarette Cigarette Packs Per Day: 0.5 Cigarettes Per Day: 10.0 Years Smoked: 41 (onset 14) Review of Systems Const Denies chills and Denies fever(s) Card Denies chest pain, Denies dyspnea and Denies dyspnea on exertion Resp Denies cough, Denies dyspnea and Denies dyspnea on exertion GI Denies hematochezia and Denies change in bowel habits Denies hematuria and Denies difficulty urinating Musc Denies back pain and Denies limited range of motion Neuro Denies focal weakness and Denies convulsions Psych Denies depression and Denies mood swings Physical Exam Const General: comfortable and no acute distress Back/Spine/Pelvis Other: Excision site on the left shoulder is well healed, not infected Assessment & Plan Assessment & Plan (1) Epidermal cyst: Code(s): L72.0 - Epidermal cyst Plan: Status post excision. His incision is well healed. His sutures were removed. His path report shows a ruptured epidermal cyst. He can follow up on a p.r.n. basis. Coding Level of Care Code Global (29891) Diagnoses Epidermal cyst L72.0
== END 2023-09-27 08:49 | disposition home or self-care (01) ==
PROVIDERS: PCP Internal Medicine Geriatric Medicine; Visit Provider Surgery
DX: L72.0 Epidermal cyst (principal)
CPT/HCPCS: 99024

== ENCOUNTER → 2023-09-27 08:26 | Outpatient (BNVA) | payer OTHER, SELFPAY | PROVIDERS: PCP Internal Medicine Geriatric Medicine; Visit Provider Surgery ==

== ENCOUNTER 2023-10-18 15:23 | Outpatient (REF) | payer OTHER, SELFPAY ==
[2023-10-18 16:08] LABS: MANUAL DIFF FLAG NO
[2023-10-18 16:10] LABS: Basophils Absolute Auto 0.1 X10*3/uL (0.0-0.2); Basophils Percent Auto 0.5 % (0-2); Eosinophils Absolute Auto 0.2 X10*3/uL (0.0-0.4); Hematocrit 48.1 % (42.0-52.0); Imm Gran Abs Auto 0.04 X10*3/uL (0.00-0.03); Imm Gran Pct Auto 0.4 % (0.0-0.4); Lymphocytes Absolute Auto 1.8 X10*3/uL (1.2-4.9); Lymphocytes Percent Auto 18.3 % (20-40); Mean Corpuscular HGB Conc 33.3 g/dl (31.0-36.0); Mean Corpuscular Hemoglobin 30.5 pg (27.0-33.0); Mean Corpuscular Volume 91.6 fL (80.0-98.0); Mean Platelet Volume 10.7 fL (9.4-12.4); Monocytes Absolute Auto 0.6 X10*3/uL (0.1-1.2); Monocytes Percent Auto 6.5 % (2-11); Neutrophils Percent Auto 72.3 % (45-73); Platelet Count 237 X10*3/uL (160-400); Red Blood Count 5.25 X10*6/uL (4.60-5.80); Red Cell Distribution Width 13.5 % (11.0-16.0); White Blood Count 9.7 X10*3/uL (4.8-10.8)
[2023-10-18 16:32] LABS: Anion Gap 10 (12-20); Blood Urea Nitrogen 12 mg/dL (9-16); Calcium 9.6 mg/dL (8.4-10.2); Carbon Dioxide 28 mmol/L (22-29); Chloride 104 mmol/L (96-108); Estimated Glomerular Filt Rate > 60; Glucose Random 82 mg/dL (60-115); Potassium 3.9 mmol/L (3.3-5.1); Sodium 138 mmol/L (135-145)
== END 2023-10-18 15:24 | disposition home or self-care (01) ==
LOC: HO.HHCL 15:23
PROVIDERS: Visit Provider Internal Medicine Geriatric Medicine
DX: Z01.818 Encounter for other preprocedural examination (principal)
CPT/HCPCS: 36415; 80048; 85025

== ENCOUNTER 2023-11-03 15:48 | Outpatient (AMB) | payer OTHER, SELFPAY ==
--- NOTE | 2023-11-03 15:55 | MHC.OFFVIS ---
Intake Visit Reasons: H&P Greenlight incision Intake Note: Patient is Present for Telephone Follow Up h&p Urology Med: Terazosin, Tamsulosin Antibiotic Allergy: None Blood Thinner: None Allergies Iodinated Contrast Media [IV CONTRAST] Allergy (Intermediate, Verified 11/06/23 09:57) Hives iopromide [From Ultravist] Allergy (Intermediate, Verified 11/06/23 09:57) PATIENT DEVELOPED HIVES AND REDNESS ON THROAT AND CHEST bee pollen [bee stings] Allergy (Verified 11/06/23 09:57) Unknown HPI Comments Details: Arsen Martínez pleasant Barbadian-speaking male. He is a patient of Dr. Ramirez. He is seen for the following urologic conditions - lower urinary tract symptoms Telemedicine Evaluation 15 min Consultation BareedEE Pepe Video attempted Barbadian translation provided by qualified rn medical inpatient services Planned prostate procedure Monday Questions answered Understands catheter will stay until Monday Still with urgency and frequency Recommend prostate incision Risks and benefits discussed Would like to proceed Lower urinary tract symptoms Urinary frequency Drinks 6-8 cups of coffee daily Current therapy terazosin 10 mg Cystoscopy 11/03 tight prostate - discussed procedure Concomitant obstructive sleep apnea mild PFSH Medical History Tinea pedis Simple renal cyst Chronic periodontitis Dental calculus Polyp of colon Prostatism Pulmonary emphysema Tobacco dependence Vitamin D deficiency Sleep apnea Elevated cholesterol Lung mass Chronic abdominal pain Infected epithelial inclusion cyst Epidermal cyst of neck Abscess of groin, left Nicotine dependence, cigarettes, uncomplicated Surgical History History of removal of cyst (~09/13/23) H/O excision of mass History of esophagogastroduodenoscopy (EGD) History of epidermal inclusion cyst excision (~07/15/21) History of removal of cyst H/O excision of mass (11/14/18) H/O colonoscopy (2015) History of umbilical hernia repair (03/19/19) Family History Father Colon cancer Skin cancer Mother Skin cancer Brother Stomach cancer, Onset Age: 57 Social History Alcohol intake: former Patient Tobacco Use Status: Current everyday Tobacco user Tobacco use type: Cigarette Cigarette Packs Per Day: 0.5 Cigarettes Per Day: 10 Years Smoked: 41 (onset 14) Review of Systems Const All systems reviewed & are unremarkable except as noted in HPI and below Reports no additional complaints Resp Reports no additional complaints GI Reports no additional complaints Reports as per HPI Musc Reports no additional complaints Physical Exam Telemedicine evaluation Appropriate responses Regular breathing rate and rhythm HEENT Head: Yes normal to inspection Ears: hearing grossly normal bilaterally Eyes General: appearance normal, both eyes and all related structures Neck Neck: Yes normal visual inspection Chest Chest palpation & inspection: normal inspection of the chest Resp Effort & Inspection: normal respiratory effort and able to speak in complete sentences Telehealth Telehealth Location of provider rendering services: practice address Location of patient: address on file Patient Identification confirmed using: Name, : Yes Telehealth method: voice only Patient verbally consented to treatment: Yes Patient verbally consented to billing insurance company: Yes Patient informed of any privacy concerns related to visit: Yes Minutes spent on Phone/Video with Pt.: 15 Assessment & Plan Assessment & Plan (1) Urinary urgency: Code(s): R39.15 - Urgency of urination Category: Medical (2) Urinary frequency: Code(s): R35.0 - Frequency of micturition Category: Medical (3) BPH (benign prostatic hyperplasia): Code(s): N40.0 - Benign prostatic hyperplasia without lower urinary tract symptoms Category: Medical Plan Planned procedure Monday Patient Instructions: Imaging studies, laboratory and physical exam results were discussed and reviewed in detail. No major barriers to patient understanding were identified. An opportunity to ask questions regarding the treatment plan was provided. All questions were answered. The patient expressed understanding and agreement with the above treatment plan. The patient is aware they should contact our office by phone for worsening of their current condition or the appearance of new urologic symptoms. Compliance is encouraged with any medications and followup testing that is ordered. It is a privilege to participate in the urologic care of your patient. If you have any questions or concerns regarding treatment for the above conditions, or other urologic issues, please do not hesitate to contact me. The office telephone contact is [phone]. This note is constructed using voice recognition software. While every effort has been made to ensure accuracy traffic operations engineer errors may have been included. Yours sincerely, Dr Aureliano Gayle MD, [facility] - Urology Providers of Expert, Compassionate Care for the Genitourinary System
== END 2023-11-03 16:25 | disposition home or self-care (01) ==
LOC: HO.HUSH 15:48
PROVIDERS: PCP Internal Medicine Geriatric Medicine; Visit Provider Urology
DX: R39.15 Urgency of urination (principal); R35.0 Frequency of micturition; N40.0 Benign prostatic hyperplasia without lower urinary tract symptoms
CPT/HCPCS: 99213

== ENCOUNTER → 2023-11-03 15:48 | Outpatient (BNVA) | payer OTHER, SELFPAY | PROVIDERS: PCP Internal Medicine Geriatric Medicine; Visit Provider Urology ==

== ENCOUNTER 2023-11-06 09:46 | Day surgery (SDC) | payer OTHER, SELFPAY ==
--- NOTE | 2023-11-03 12:14 | HO.ANESPROP2 ---
Documented by User: Vania Crow NP 11/03/23 12:16 HPI - Anesthesia Eval Consult details Narrative: 58yo M for Incision of Prostate w/Green Light Medically optimized PMFSH Active Problems Active Problems: All Active Problems (Updated 11/02/23 @ 11:13 by Ni Velazquez RN) Microscopic hematuria (Acute) Urinary urgency (Acute) Urinary frequency (Acute) BPH (benign prostatic hyperplasia) (Acute) Early satiety (Acute) Diverticulosis of colon (Acute) Sessile colonic polyp (Acute) Acid reflux (Acute) Excessive daytime sleepiness (Acute) Epidermal cyst (Acute) Obstructive sleep apnea (Acute) Chronic abdominal pain (Acute) Infected epithelial inclusion cyst (Acute) Epidermal cyst of neck (Acute) Abscess of groin, left (Acute) Nicotine dependence, cigarettes, uncomplicated (Acute) Past Medical History Medical History Tinea pedis Simple renal cyst Chronic periodontitis Dental calculus Polyp of colon Prostatism Pulmonary emphysema Tobacco dependence Vitamin D deficiency Sleep apnea Elevated cholesterol Lung mass Chronic abdominal pain Infected epithelial inclusion cyst Epidermal cyst of neck Abscess of groin, left Nicotine dependence, cigarettes, uncomplicated Family History Family History Father Colon cancer Skin cancer Mother Skin cancer Brother Stomach cancer, Onset Age: 57 Family history of problems with anesthesia: No Surgical History Surgical History History of removal of cyst (~09/13/23) H/O excision of mass History of esophagogastroduodenoscopy (EGD) History of epidermal inclusion cyst excision (~07/15/21) History of removal of cyst H/O excision of mass (11/14/18) H/O colonoscopy (2015) History of umbilical hernia repair (03/19/19) History of Problems with Anesthesia: No Social History Social History Alcohol intake: former Patient Tobacco Use Status: Current everyday Tobacco user Tobacco use type: Cigarette Cigarette Packs Per Day: 0.5 Cigarettes Per Day: 10 Years Smoked: 41 (onset 15) Meds Allergies Allergy/AdvReac Type Severity Reaction Status Date / Time Iodinated Contrast Media Allergy Intermediate Hives Verified 11/06/23 09:57 [IV CONTRAST] iopromide [From Ultravist] Allergy Intermediate PATIENT Verified 11/06/23 09:57 DEVELOPED HIVES AND REDNESS ON THROAT AND CHEST bee pollen [bee stings] Allergy Unknown Verified 11/06/23 09:57 Home Medications Medication Instructions Recorded Confirmed Last Taken Type albuterol sulfate 90 mcg/actuation 2 puff inhalation Q4-6H PRN 09/07/22 11/02/23 Unknown History aerosol inhaler Shortness Of Breath Or Wheezing pravastatin 20 mg tablet 20 mg PO QAM 01/17/23 11/02/23 Unknown History ciclopirox 0.77 % topical cream 1 appl topical BID 11/02/23 11/02/23 Unknown History clobetasol 0.05 % topical ointment 1 appl topical BID 11/02/23 11/02/23 Unknown History diphenhydramine HCl 25 mg capsule 25 mg PO Q4-6H PRN Itching 11/02/23 11/02/23 Unknown History epinephrine 0.3 mg/0.3 mL 0.3 mg IM Q4H PRN Anaphylaxis 11/02/23 11/02/23 Unknown History injection, auto-injector (EpiPen) tamsulosin 0.4 mg capsule 0.8 mg PO DAILY 11/02/23 11/02/23 Unknown History terazosin 10 mg capsule 10 mg PO BEDTIME 11/02/23 11/02/23 Unknown History triamcinolone acetonide 0.1 % appl topical BID PRN Rash 11/02/23 Unknown History topical ointment Exam Pertinent Lab Results Pertinent Lab Results: Laboratory Tests 10/18/23 15:25 WBC 9.7 Hgb 16.0 Hct 48.1 Plt Count 237 Sodium 138 Potassium 3.9 Chloride 104 Carbon Dioxide 28 BUN 12 Creatinine 0.76 Assessment and Plan Assessment Anesthesia Assessment: Chart Reviewed Final Anesthetic Review Family History of Problems with Anesthesia: No History of Problems with Anesthesia: No Documented by User: Sherrie Eubanks MD 11/06/23 10:29 [facility] Active Problems Active Problems: All Active Problems (Updated 11/06/23 @ 10:05 by Sherrie Eubanks MD) Microscopic hematuria (Acute) Urinary urgency (Acute) Urinary frequency (Acute) BPH (benign prostatic hyperplasia) (Acute) Early satiety (Acute) Diverticulosis of colon (Acute) Sessile colonic polyp (Acute) Acid reflux (Acute) Excessive daytime sleepiness (Acute) Epidermal cyst (Acute) Obstructive sleep apnea (Acute)- not using CPAP. Awaiting new machine Chronic abdominal pain (Acute) Infected epithelial inclusion cyst (Acute) Epidermal cyst of neck (Acute) Abscess of groin, left (Acute) Nicotine dependence, cigarettes, uncomplicated (Acute)- last cigarette this morning COPD Past Medical History Medical History Tinea pedis Simple renal cyst Chronic periodontitis Dental calculus Polyp of colon Prostatism Pulmonary emphysema Tobacco dependence Vitamin D deficiency Sleep apnea Elevated cholesterol Lung mass Chronic abdominal pain Infected epithelial inclusion cyst Epidermal cyst of neck Abscess of groin, left Nicotine dependence, cigarettes, uncomplicated Family History Family History Father Colon cancer Skin cancer Mother Skin cancer Brother Stomach cancer, Onset Age: 57 Family history of problems with anesthesia: No Surgical History Surgical History History of removal of cyst (~09/13/23) H/O excision of mass History of esophagogastroduodenoscopy (EGD) History of epidermal inclusion cyst excision (~07/15/21) History of removal of cyst H/O excision of mass (11/14/18) H/O colonoscopy (2015) History of umbilical hernia repair (03/19/19) History of Problems with Anesthesia: No Social History Social History Alcohol intake: former Patient Tobacco Use Status: Current everyday Tobacco user Tobacco use type: Cigarette Cigarette Packs Per Day: 0.5 Cigarettes Per Day: 10 Years Smoked: 41 (onset 14) Meds Allergies Allergy/AdvReac Type Severity Reaction Status Date / Time Iodinated Contrast Media Allergy Intermediate Hives Verified 11/06/23 09:57 [IV CONTRAST] iopromide [From Ultravist] Allergy Intermediate PATIENT Verified 11/06/23 09:57 DEVELOPED HIVES AND REDNESS ON THROAT AND CHEST bee pollen [bee stings] Allergy Unknown Verified 11/06/23 09:57 Home Medications Medication Instructions Recorded Confirmed Last Taken Type albuterol sulfate 90 mcg/actuation 2 puff inhalation Q4-6H PRN 09/07/22 11/02/23 Unknown History aerosol inhaler Shortness Of Breath Or Wheezing pravastatin 20 mg tablet 20 mg PO QAM 01/17/23 11/02/23 Unknown History ciclopirox 0.77 % topical cream 1 appl topical BID 11/02/23 11/02/23 Unknown History clobetasol 0.05 % topical ointment 1 appl topical BID 11/02/23 11/02/23 Unknown History diphenhydramine HCl 25 mg capsule 25 mg PO Q4-6H PRN Itching 11/02/23 11/02/23 Unknown History epinephrine 0.3 mg/0.3 mL 0.3 mg IM Q4H PRN Anaphylaxis 11/02/23 11/02/23 Unknown History injection, auto-injector (EpiPen) tamsulosin 0.4 mg capsule 0.8 mg PO DAILY 11/02/23 11/02/23 Unknown History terazosin 10 mg capsule 10 mg PO BEDTIME 11/02/23 11/02/23 Unknown History triamcinolone acetonide 0.1 % appl topical BID PRN Rash 11/02/23 Unknown History topical ointment Exam Height,Weight and Vital Signs: Height 5 ft 6 in Weight 89.811 kg Vital Signs Temp Pulse Resp BP Pulse Ox O2 Del Method 11/06/23 10:04 96.7 F L 66 16 121/80 98 Room Air Airway Mallampati Class: III (Small mouth opening) TM Dist: >3cm Neck ROM: Full Loose/Missing/Broken Teeth: Yes (Missing molars. Denies broken or loose teeth) Heart: RRR Lungs: CTAB Assessment and Plan Assessment Anesthesia Assessment: Anesthesia Plan Discussed and Chart Reviewed Final Anesthetic Review Family History of Problems with Anesthesia: No History of Problems with Anesthesia: No NPO: Yes ASA Class: III Final Preanesthetic Review: No Changes in Pt Med Stat, Meds/Allgs Chart Reviewed, Consent Obtained/Reviewed and Anes Risks/Benef Reviewed Patient Risk: Intermediate Procedure Risk: Low Assessment/Block/Sedation in SS: Assess/Block/Sedation-SS Anesthetic Plan Anesthetic Plan: GA Disposition: Standard PACU
[2023-11-06] VITALS (8 sets, daily range): BP systolic 90–136; BP diastolic 55–87; PULSE 56–67; RESP 14–18; TEMP 35.9–36.3; O2SAT 94–98; BMI 32.0
[2023-11-06] MEDS: Lactated Ringers 1,000 ML 100 ML IVCONT (10:10)
--- NOTE | 2023-11-06 10:57 | MHC.SHP ---
Pre-Procedural Eval Section A - 24 Hr Update-Section A only Date of Service: 11/06/23 The patient is an INPATIENT: No Changes since office visit: No Cold of Flu in the past 2 weeks, No New Medical Problems, No Changes in Medication and No Patient answered all questions The patient has been examined within 24 hours of the surgical procedure. The History & Physical has been completed within 30 days and I have reviewed it.: Yes Section B - Complete if H&P > 30 days Chief Complaint: Benign prostatic hyperplasia without lower urinary Allergies: Allergies Allergy/AdvReac Type Severity Reaction Status Date / Time Iodinated Contrast Media Allergy Intermediate Hives Verified 11/06/23 09:57 [IV CONTRAST] iopromide [From Ultravist] Allergy Intermediate PATIENT Verified 11/06/23 09:57 DEVELOPED HIVES AND REDNESS ON THROAT AND CHEST bee pollen [bee stings] Allergy Unknown Verified 11/06/23 09:57 Plan Diagnosis/Plan: Unchanged (laser incision of the prostate) I have reviewed the history and physical and performed a pertinent physical examination on my patient. No changes have occurred unless specified. Time Spent With Patient Time: Total time managing care of this patient today ____ minutes.
--- NOTE | 2023-11-06 11:36 | W.PM.OPN ---
Operative Note Operative Note Date of Service: 11/06/23 Narrative: PreOperative Diagnosis: Bladder outlet obstruction Post Operative Diagnosis: 1) Bladder outlet obstruction 2) possible interstitial cystitis Procedure: GreenLight Laser Prostate Incision Surgeon: Dr Aureliano Gayle Anesthesia: General History of bladder outlet obstruction. Treated with alpha-kimberley and other medications. Still with symptoms. On cystoscopy in office has tight bladder neck. Recommendation for prostate procedure with laser incision of prostate. Risks and benefits have been discussed. Focus was placed on development of retrograde ejaculation which is a normal part of this procedure. Procedure: After informed consent was verified the patient was brought to the operating room and placed in a supine position. Anesthesia was administered per protocol. Patient was placed in modified dorsal lithotomy position and prepped and draped in a sterile fashion. Safety pause time-out was confirmed. Antibiotics have been given. A Twenty-four Marshallese laser cystoscope was inserted per urethra. No abnormalities were found of the anterior and bulbar urethra. The bladder was examined and both ureteric orifices were seen in their normal positions away from the area of interest. Bladder filled. Mucosa noted with injected mucosa and trabeculations similar to interstitial cystitis Using a GreenLight laser with settings of 80 w incisions were made at the 5 and 7 o'clock position. The incisions were taken down from the bladder neck down to the level of the veru. These were gradually deepened in order to define the lateral aspects of the median lobe area. Once clearly defined they will also extended in the lateral directions in order to create a deep groove. Both ureteric orifices were reviewed again in shown to be patent in away from any areas of energy damage. A 22 Marshallese 30 cc balloon Barnett catheter was placed over a stylet into the bladder. Clear efflux was obtained upon irrigation with a Yvon piston syringe. 30 cc was placed in the balloon and gentle traction was placed. A snap was used to hold tension on the catheter to control bleeding during patient moved and transported. A drainage bag was placed. Once transportation is complete to the PACU the snap will be removed. The patient tolerated the procedure well, he was extubated in the operating and transferred in a stable condition to the recovery area. Total Power 13 kW Lasing time 2:40 Pathology: Drains: Barnett catheter
== END 2023-11-06 13:26 | disposition home or self-care (01) ==
PROVIDERS: PCP Internal Medicine Geriatric Medicine; Visit Provider Urology
PROC: (CPT 52648; principal; 2023-11-06 13:00)
DX: N40.1 Benign prostatic hyperplasia with lower urinary tract symptoms (principal); N13.8 Other obstructive and reflux uropathy; R35.0 Frequency of micturition; R39.15 Urgency of urination; N28.1 Cyst of kidney, acquired; G47.33 Obstructive sleep apnea (adult) (pediatric); J43.9 Emphysema, unspecified; J44.9 Chronic obstructive pulmonary disease, unspecified; E78.00 Pure hypercholesterolemia, unspecified; Z79.899 Other long term (current) drug therapy; F17.210 Nicotine dependence, cigarettes, uncomplicated; Z98.890 Other specified postprocedural states; Z91.041 Radiographic dye allergy status
CPT/HCPCS: 52648; J1956; J2704; J3010

== ENCOUNTER → 2023-11-06 09:46 | Outpatient (BNV) | payer OTHER, SELFPAY | PROVIDERS: PCP Internal Medicine Geriatric Medicine; Visit Provider Urology | DX: N32.0 Bladder-neck obstruction (principal); N30.10 Interstitial cystitis (chronic) without hematuria | CPT/HCPCS: 52649 ==

== ENCOUNTER → 2023-11-08 08:26 | Outpatient (BNVA) | payer OTHER, SELFPAY | PROVIDERS: PCP Internal Medicine Geriatric Medicine; Visit Provider Urology ==

== ENCOUNTER 2023-12-13 14:44 | Outpatient (AMB) | payer OTHER, SELFPAY ==
--- NOTE | 2023-12-13 15:22 | MHC.OFFVIS ---
Intake Visit Reasons: Prostate incision F/U Intake Note: Patient is present for Prostate incision Allergies Iodinated Contrast Media [IV CONTRAST] Allergy (Intermediate, Verified 12/13/23 15:23) Hives iopromide [From Ultravist] Allergy (Intermediate, Verified 12/13/23 15:23) PATIENT DEVELOPED HIVES AND REDNESS ON THROAT AND CHEST bee pollen [bee stings] Allergy (Verified 12/13/23 15:23) Unknown Medication List - Last Reconciled 12/13/23 by Aureliano Gayle MD albuterol sulfate 90 mcg/actuation 2 puffs inhalation Q4-6H PRN ciclopirox 0.77% 1 appl topical BID clobetasol 0.05% 1 appl topical BID diphenhydramine HCl 25 mg PO Q4-6H PRN epinephrine (EpiPen) 0.3 mg IM Q4H PRN famotidine 40 mg PO BEDTIME 90 days oxybutynin chloride ER 10 mg PO DAILY 90 days pravastatin 20 mg PO QAM tamsulosin 0.8 mg PO DAILY terazosin 10 mg PO BEDTIME triamcinolone acetonide 0.1% appl topical BID PRN HPI Comments Details: Arsen Martínez pleasant Filipino-speaking male. He is a patient of Dr. Ramirez. He is seen for the following urologic conditions - lower urinary tract symptoms Six weeks post prostate procedure Filipino translation provided by qualified biomedical engineer Bladder at procedure appeared to have some degree of interstitial cystitis Discussed bladder irritation Discussed diet triggers Has concomitant heartburn symptoms Trial of oxybutynin 10 mg with famotidine Three-month follow-up Lower urinary tract symptoms Urinary frequency Drinks 6-8 cups of coffee daily Current therapy terazosin 10 mg Cystoscopy 11/03 tight prostate - laser of prostate 11/04 Concomitant obstructive sleep apnea mild PFSH Medical History Tinea pedis Simple renal cyst Chronic periodontitis Dental calculus Polyp of colon Prostatism Pulmonary emphysema Tobacco dependence Vitamin D deficiency Sleep apnea Elevated cholesterol Lung mass Chronic abdominal pain Infected epithelial inclusion cyst Epidermal cyst of neck Abscess of groin, left Nicotine dependence, cigarettes, uncomplicated Surgical History History of removal of cyst (~09/13/23) H/O excision of mass History of esophagogastroduodenoscopy (EGD) History of epidermal inclusion cyst excision (~07/15/21) History of removal of cyst H/O excision of mass (11/14/18) H/O colonoscopy (2016) History of umbilical hernia repair (03/19/19) Family History Father Colon cancer Skin cancer Mother Skin cancer Brother Stomach cancer, Onset Age: 57 Social History Alcohol intake: former Patient Tobacco Use Status: Current everyday Tobacco user Tobacco use type: Cigarette Cigarette Packs Per Day: 0.5 Cigarettes Per Day: 10 Years Smoked: 41 (onset 14) Review of Systems Const Denies chills and Denies fever(s) Card Reports no additional complaints and Denies syncope Resp Denies cough GI Denies abdominal pain and Denies heartburn Reports as per HPI and Denies change in libido Neuro Denies syncope Psych Denies change in libido Endo Denies change in libido Physical Exam Const General: cooperative, healthy appearing, comfortable and no acute distress Orientation/consciousness: patient oriented x3 HEENT Face and sinus: Yes normal facial exam Mouth: moist mucous membranes Neck Neck: Yes normal visual inspection, Yes full ROM and Yes trachea midline Chest Chest palpation & inspection: normal inspection of the chest Resp Effort & Inspection: normal respiratory effort, able to speak in complete sentences and no respiratory distress GI Inspection: Yes normal to inspection Back/Spine/Pelvis Cervical Spine: normal cervical lordosis Thoracic/Lumbar Spine: thoracic and lumbar spine normal to inspection Skin General skin exam: no rashes or lesions noted Neuro General: patient oriented x3, gait normal, tone normal and moves all extremities Extrem General: Yes normal to inspection and Yes capillary refill normal Assessment & Plan Assessment & Plan (1) Chronic interstitial cystitis: Code(s): N30.10 - Interstitial cystitis (chronic) without hematuria Category: Medical Plan Trial oxybutynin with famotidine Medications: New famotidine 40 mg PO BEDTIME 90 days 90 tabs 0RF N30.10 - Interstitial cystitis (chronic) without hematuria, R39.15 - Urgency of urination oxybutynin chloride ER 10 mg PO DAILY 90 days 90 tabs 1RF N30.10 - Interstitial cystitis (chronic) without hematuria Discontinued oxybutynin chloride ER Discontinued Reason: Patient Completed Course 5 mg PO DAILY 30 days 30 tabs 1RF Patient Instructions: Imaging studies, laboratory and physical exam results were discussed and reviewed in detail. No major barriers to patient understanding were identified. An opportunity to ask questions regarding the treatment plan was provided. All questions were answered. The patient expressed understanding and agreement with the above treatment plan. The patient is aware they should contact our office by phone for worsening of their current condition or the appearance of new urologic symptoms. Compliance is encouraged with any medications and followup testing that is ordered. It is a privilege to participate in the urologic care of your patient. If you have any questions or concerns regarding treatment for the above conditions, or other urologic issues, please do not hesitate to contact me. The office telephone contact is [phone]. This note is constructed using voice recognition software. While every effort has been made to ensure accuracy bread oven operator errors may have been included. Yours sincerely, Dr Aureliano Gayle MD, [facility] - Urology Providers of Expert, Compassionate Care for the Genitourinary System Coding Level of Care Code Est Pt Level 4 (09342) Diagnoses Chronic interstitial cystitis N30.10
== END 2023-12-13 15:40 | disposition home or self-care (01) ==
PROVIDERS: PCP Internal Medicine Geriatric Medicine; Visit Provider Urology
DX: N30.10 Interstitial cystitis (chronic) without hematuria (principal)
CPT/HCPCS: 99024

== ENCOUNTER → 2023-12-13 14:44 | Outpatient (BNVA) | payer OTHER, SELFPAY | PROVIDERS: PCP Internal Medicine Geriatric Medicine; Visit Provider Urology ==

== ENCOUNTER 2023-12-21 10:52 | Outpatient (AMB) | payer OTHER, SELFPAY ==
--- NOTE | 2023-12-21 11:15 | A.OFFVIS_ITS ---
Intake Visit Reasons: 6w follow up Allergies Iodinated Contrast Media [IV CONTRAST] Allergy (Intermediate, Verified 12/13/23 15:23) Hives iopromide [From Ultravist] Allergy (Intermediate, Verified 12/13/23 15:23) PATIENT DEVELOPED HIVES AND REDNESS ON THROAT AND CHEST bee pollen [bee stings] Allergy (Verified 12/13/23 15:23) Unknown Medication List - Last Reconciled 12/21/23 by Aureliano Gayle MD albuterol sulfate 90 mcg/actuation 2 puffs inhalation Q4-6H PRN ciclopirox 0.77% 1 appl topical BID clobetasol 0.05% 1 appl topical BID diphenhydramine HCl 25 mg PO Q4-6H PRN epinephrine (EpiPen) 0.3 mg IM Q4H PRN famotidine 40 mg PO BEDTIME 90 days oxybutynin chloride ER 10 mg PO DAILY 90 days pravastatin 20 mg PO QAM tamsulosin 0.8 mg PO DAILY terazosin 10 mg PO BEDTIME triamcinolone acetonide 0.1% appl topical BID PRN HPI Comments Details: Arsen This pleasant [place]-speaking male. He is a patient of Dr. Ramirez. He is seen for the following urologic conditions - lower urinary tract symptoms Difficulty obtaining oxybutynin Prescription provided Will need prior off Three-month follow-up [place] translation provided by qualified emergency medical dispatcher Bladder at procedure appeared to have some degree of interstitial cystitis Discussed bladder irritation Discussed diet triggers Has concomitant heartburn symptoms Trial of oxybutynin 10 mg with famotidine Three-month follow-up Lower urinary tract symptoms Urinary frequency Drinks 6-8 cups of coffee daily Current therapy terazosin 10 mg Cystoscopy 11/03 tight prostate - laser of prostate 11/04 Concomitant obstructive sleep apnea mild PFSH Medical History Tinea pedis Simple renal cyst Chronic periodontitis Dental calculus Polyp of colon Prostatism Pulmonary emphysema Tobacco dependence Vitamin D deficiency Sleep apnea Elevated cholesterol Lung mass Chronic abdominal pain Infected epithelial inclusion cyst Epidermal cyst of neck Abscess of groin, left Nicotine dependence, cigarettes, uncomplicated Surgical History History of removal of cyst (~09/13/23) H/O excision of mass History of esophagogastroduodenoscopy (EGD) History of epidermal inclusion cyst excision (~07/15/21) History of removal of cyst H/O excision of mass (11/14/18) H/O colonoscopy (2015) History of umbilical hernia repair (03/19/19) Family History Father Colon cancer Skin cancer Mother Skin cancer Brother Stomach cancer, Onset Age: 57 Social History Alcohol intake: former Patient Tobacco Use Status: Current everyday Tobacco user Tobacco use type: Cigarette Cigarette Packs Per Day: 0.5 Cigarettes Per Day: 10 Years Smoked: 41 (onset 14) Review of Systems Const Denies chills and Denies fever(s) Card Reports no additional complaints and Denies syncope Resp Denies cough GI Denies abdominal pain and Denies heartburn Reports as per HPI and Denies change in libido Neuro Denies syncope Psych Denies change in libido Endo Denies change in libido Physical Exam Const General: cooperative, healthy appearing, comfortable and no acute distress Orientation/consciousness: patient oriented x3 HEENT Face and sinus: Yes normal facial exam Mouth: moist mucous membranes Neck Neck: Yes normal visual inspection, Yes full ROM and Yes trachea midline Chest Chest palpation & inspection: normal inspection of the chest Resp Effort & Inspection: normal respiratory effort, able to speak in complete sentences and no respiratory distress GI Inspection: Yes normal to inspection Back/Spine/Pelvis Cervical Spine: normal cervical lordosis Thoracic/Lumbar Spine: thoracic and lumbar spine normal to inspection Skin General skin exam: no rashes or lesions noted Neuro General: patient oriented x3, gait normal, tone normal and moves all extremities Extrem General: Yes normal to inspection and Yes capillary refill normal Assessment & Plan Assessment & Plan (1) Urinary frequency: Code(s): R35.0 - Frequency of micturition Category: Medical (2) Urinary urgency: Code(s): R39.15 - Urgency of urination Category: Medical Plan Three-month follow-up Prescription oxybutynin three-month Patient Instructions: Imaging studies, laboratory and physical exam results were discussed and reviewed in detail. No major barriers to patient understanding were identified. An opportunity to ask questions regarding the treatment plan was provided. All questions were answered. The patient expressed understanding and agreement with the above treatment plan. The patient is aware they should contact our office by phone for worsening of their current condition or the appearance of new urologic symptoms. Compliance is encouraged with any medications and followup testing that is ordered. It is a privilege to participate in the urologic care of your patient. If you have any questions or concerns regarding treatment for the above conditions, or other urologic issues, please do not hesitate to contact me. The office telephone contact is [phone]. This note is constructed using voice recognition software. While every effort has been made to ensure accuracy claim processing specialist errors may have been included. Yours sincerely, Dr Aureliano Gayle MD, [facility] - Urology Providers of Expert, Compassionate Care for the Genitourinary System Coding Level of Care Code Est Pt Level 3 (93854) Diagnoses Urinary frequency R35.0 Urinary urgency R39.15
== END 2023-12-21 11:45 | disposition home or self-care (01) ==
PROVIDERS: PCP Internal Medicine Geriatric Medicine; Visit Provider Urology
DX: R35.0 Frequency of micturition (principal); R39.15 Urgency of urination
CPT/HCPCS: 99024

== ENCOUNTER → 2023-12-21 10:52 | Outpatient (BNVA) | payer OTHER, SELFPAY | PROVIDERS: PCP Internal Medicine Geriatric Medicine; Visit Provider Urology ==

== ENCOUNTER 2023-12-28 15:14 | Outpatient (REF) | payer OTHER, SELFPAY ==
--- NOTE | ~2023-12-28 | CT_ITS ---
EXAMINATION: CT LOW-DOSE SCREENING CHEST WITHOUT CONTRAST CLINICAL INFORMATION: Nicotine dependence, cigarettes, uncomplicated. The patient is a current smoker with a 40+ pack-year history of smoking. COMPARISON: CT chest 03/11/2022. X-ray chest 11/12/2015. TECHNIQUE: Multidetector volumetric CT imaging of the chest is performed on a Siemens SOMATOM Definition scanner without contrast using low dose technique. Additional 2D coronal and sagittal reformatted images and axial 3D maximum intensity projection (MIP) images are generated on the CT workstation. This CT examination was performed using dose optimization techniques as appropriate, variously including the following: *Automated exposure control *Adjustment of mA and/or kV according to patient size (this includes techniques or standardized protocols for targeted exams where dose is matched to indication/reason for exam; i.e. extremities or head) *Use of iterative reconstruction technique TOTAL EXAM DLP: 59 mGy-cm. CTDIvol: 1.78 mGy. FINDINGS: PULMONARY NODULES: Small pulmonary nodules and perifissural lymph nodes are unchanged with the largest density measuring 5 mm along the major fissure in the right lower lobe (5:231 compare prior 6:231). Hannon images of all have been saved. LUNGS: Lungs bilaterally symmetrically expanded. Mild emphysematous changes are seen along with bronchial thickening. No effusion or pneumothorax. Central airways patent. MEDIASTINUM: No mediastinal, hilar or axillary adenopathy or free fluid collection. CORONARY ARTERY CALCIFICATION: None visualized on this study. THYROID GLAND: Unremarkable to the extent seen. CARDIOVASCULAR STRUCTURES: Aortic and heart size normal. No pericardial effusion. CHEST WALL/AXILLA: Unremarkable. UPPER ABDOMEN: Fat density 2.6 cm right adrenal adenoma is unchanged. Included portions of the solid organs in the upper abdomen unremarkable on noncontrast imaging. OSSEOUS STRUCTURES: No suspicious focal findings. CT/CT lung screening IMPRESSION: Stable pulmonary nodules with no evidence to suggest malignancy. ASSESSMENT: 1. Lung-RADS Category 2: Benign appearance or behavior of nodules. N/A 2. Lung-RADS Category S: Negative. There are no clinically significant or potentially clinically significant findings not related to the lungs requiring urgent additional evaluation. RECOMMENDATION: Continued routine annual low-dose CT lung screening in 1 year is recommended. An order for CT CHEST LOW DOSE CANCER SCREENING ([id number]) can be placed.
== END 2023-12-28 15:15 | disposition home or self-care (01) ==
LOC: HO.CT 15:14
PROVIDERS: PCP Internal Medicine Geriatric Medicine; Visit Provider Physician Assistant Medical
DX: Z12.2 Encounter for screening for malignant neoplasm of respiratory organs (principal); F17.210 Nicotine dependence, cigarettes, uncomplicated
CPT/HCPCS: 71271

== ENCOUNTER 2024-01-16 15:54 | Outpatient (REF) | payer OTHER, SELFPAY ==
[2024-01-16 18:40] LABS: Alanine Aminotransferase 23 U/L (0-40); Albumin Level 4.5 g/dL (3.5-5.0); Alkaline Phosphatase 71 U/L (39-117); Aspartate Amino Transferase 20 U/L (5-37); Bilirubin Direct < 0.2 mg/dL (0.0-0.5); Bilirubin Total 0.2 mg/dL (0.0-1.0); Lipase 21 U/L (8-78); Total Protein 7.2 g/dL (6.5-8.0)
== END 2024-01-16 15:55 | disposition home or self-care (01) ==
LOC: HO.HHCL 15:54
PROVIDERS: Visit Provider Nurse Practitioner Family
DX: R10.30 Lower abdominal pain, unspecified (principal)
CPT/HCPCS: 36415; 80076; 83690

== ENCOUNTER 2024-03-28 08:40 | Outpatient (AMB) | payer OTHER, SELFPAY ==
--- NOTE | 2024-03-28 09:25 | MHC.OFFVIS ---
Intake Visit Reasons: 3M Follow Up-PVR/Med Review(Oxybutynin) Intake Note: Patient is Present for Follow Up Med Review-Oxybutynin Urology Medication: Tamsulosin, Terazosin, Oxybutynin Antibiotic Allergies: None Blood Thinners: None Director Of Fundraising Required: Yes Director Of Fundraising Language: Luxembourger Accompanied by: Self / Same As Patient Allergies Iodinated Contrast Media [IV CONTRAST] Allergy (Intermediate, Verified 03/28/24 09:31) Hives iopromide [From Ultravist] Allergy (Intermediate, Verified 03/28/24 09:31) PATIENT DEVELOPED HIVES AND REDNESS ON THROAT AND CHEST bee pollen [bee stings] Allergy (Verified 03/28/24 09:31) Unknown Medication List - Last Reconciled 03/28/24 by Aureliano Gayle MD albuterol sulfate 90 mcg/actuation 2 puffs inhalation Q4-6H PRN ciclopirox 0.77% 1 appl topical BID clobetasol 0.05% 1 appl topical BID diphenhydramine HCl 25 mg PO Q4-6H PRN epinephrine (EpiPen) 0.3 mg IM Q4H PRN famotidine 40 mg PO BEDTIME 90 days oxybutynin chloride ER 10 mg PO DAILY 90 days pravastatin 20 mg PO QAM terazosin 10 mg PO BEDTIME triamcinolone acetonide 0.1% appl topical BID PRN HPI Comments Details: Arsen This pleasant Luxembourger-speaking male. He is a patient of Dr. Ramirez. He is seen for the following urologic conditions - lower urinary tract symptoms - bladder instability Three-month follow-up daily oxybutynin with terazosin Luxembourger translation provided by qualified medical imaging technician Does report some improvement with bladder irritation using medications Would like to continue Oxybutynin 10 mg daily with famotidine Bladder at procedure appeared to have some degree of interstitial cystitis Discussed bladder irritation Discussed diet triggers Lower urinary tract symptoms Urinary frequency Drinks 6-8 cups of coffee daily Current therapy terazosin 10 mg Cystoscopy 11/03 tight prostate - laser of prostate 11/04 Concomitant obstructive sleep apnea mild PFSH Medical History Tinea pedis Simple renal cyst Chronic periodontitis Dental calculus Polyp of colon Prostatism Pulmonary emphysema Tobacco dependence Vitamin D deficiency Sleep apnea Elevated cholesterol Lung mass Chronic abdominal pain Infected epithelial inclusion cyst Epidermal cyst of neck Abscess of groin, left Nicotine dependence, cigarettes, uncomplicated Surgical History History of removal of cyst (~09/13/23) H/O excision of mass History of esophagogastroduodenoscopy (EGD) History of epidermal inclusion cyst excision (~07/15/21) History of removal of cyst H/O excision of mass (11/14/18) H/O colonoscopy (2015) History of umbilical hernia repair (03/19/19) Family History Father Colon cancer Skin cancer Mother Skin cancer Brother Stomach cancer, Onset Age: 57 Social History Alcohol intake: former Patient Tobacco Use Status: Current everyday Tobacco user Tobacco use type: Cigarette Cigarette Packs Per Day: 0.5 Cigarettes Per Day: 10 Years Smoked: 41 (onset 14) Review of Systems Const Denies chills and Denies fever(s) Card Reports no additional complaints and Denies syncope Resp Denies cough GI Denies abdominal pain and Denies heartburn Reports as per HPI and Denies change in libido Neuro Denies syncope Psych Denies change in libido Endo Denies change in libido Physical Exam Const General: cooperative, healthy appearing, comfortable and no acute distress Orientation/consciousness: patient oriented x3 HEENT Face and sinus: Yes normal facial exam Mouth: moist mucous membranes Neck Neck: Yes normal visual inspection, Yes full ROM and Yes trachea midline Chest Chest palpation & inspection: normal inspection of the chest Resp Effort & Inspection: normal respiratory effort, able to speak in complete sentences and no respiratory distress GI Inspection: Yes normal to inspection Back/Spine/Pelvis Cervical Spine: normal cervical lordosis Thoracic/Lumbar Spine: thoracic and lumbar spine normal to inspection Skin General skin exam: no rashes or lesions noted Neuro General: patient oriented x3, gait normal, tone normal and moves all extremities Extrem General: Yes normal to inspection and Yes capillary refill normal Assessment & Plan Assessment & Plan (1) Chronic interstitial cystitis: Code(s): N30.10 - Interstitial cystitis (chronic) without hematuria Category: Medical (2) BPH (benign prostatic hyperplasia): Code(s): N40.0 - Benign prostatic hyperplasia without lower urinary tract symptoms Category: Medical Plan Six-month follow-up UA Medications: Refilled oxybutynin chloride ER 10 mg PO DAILY 90 days 90 tabs 0RF N30.10 - Interstitial cystitis (chronic) without hematuria, R35.0 - Frequency of micturition, R39.15 - Urgency of urination Patient Instructions: Imaging studies, laboratory and physical exam results were discussed and reviewed in detail. No major barriers to patient understanding were identified. An opportunity to ask questions regarding the treatment plan was provided. All questions were answered. The patient expressed understanding and agreement with the above treatment plan. The patient is aware they should contact our office by phone for worsening of their current condition or the appearance of new urologic symptoms. Compliance is encouraged with any medications and followup testing that is ordered. It is a privilege to participate in the urologic care of your patient. If you have any questions or concerns regarding treatment for the above conditions, or other urologic issues, please do not hesitate to contact me. The office telephone contact is [phone]. This note is constructed using voice recognition software. While every effort has been made to ensure accuracy sheet metal duct installer errors may have been included. Yours sincerely, Dr Aureliano Gayle MD, [facility] - Urology Providers of Expert, Compassionate Care for the Genitourinary System Coding Level of Care Code Est Pt Level 3 (32072) Diagnoses Chronic interstitial cystitis N30.10 BPH (benign prostatic hyperplasia) N40.0
== END 2024-03-28 09:58 | disposition home or self-care (01) ==
PROVIDERS: PCP Internal Medicine Geriatric Medicine; Visit Provider Urology
DX: N30.10 Interstitial cystitis (chronic) without hematuria (principal); N40.0 Benign prostatic hyperplasia without lower urinary tract symptoms
CPT/HCPCS: 99213

== ENCOUNTER → 2024-03-28 08:40 | Outpatient (BNVA) | payer OTHER, SELFPAY | PROVIDERS: PCP Internal Medicine Geriatric Medicine; Visit Provider Urology ==

== ENCOUNTER 2024-04-03 12:28 | Outpatient (AMB) | payer OTHER, SELFPAY ==
--- NOTE | 2024-04-03 12:47 | A.OFFVIS_ITS ---
Intake Visit Reasons: rash on surgery site Intake Note: This patient presents for rash on surgery site. Pt c/o; reports rash all over body. Excision cyst; 09/27/2023 Medical Laboratory Technician Required: No Medical Laboratory Technician Services: Medical Laboratory Technician Present ([place]) Medical Laboratory Technician Name: Loco Information Interpreted: non-clinical & clinical Accompanied by: Self / Same As Patient Allergies Iodinated Contrast Media [IV CONTRAST] Allergy (Intermediate, Verified 04/03/24 12:51) Hives iopromide [From Ultravist] Allergy (Intermediate, Verified 04/03/24 12:51) PATIENT DEVELOPED HIVES AND REDNESS ON THROAT AND CHEST bee pollen [bee stings] Allergy (Verified 04/03/24 12:51) Unknown Medication List - Last Reconciled 04/03/24 by Kishan Montanez MD albuterol sulfate 90 mcg/actuation 2 puffs inhalation Q4-6H PRN ciclopirox 0.77% 1 appl topical BID clobetasol 0.05% 1 appl topical BID diphenhydramine HCl 25 mg PO Q4-6H PRN epinephrine (EpiPen) 0.3 mg IM Q4H PRN famotidine 40 mg PO BEDTIME 90 days oxybutynin chloride ER 10 mg PO DAILY 90 days pravastatin 20 mg PO QAM terazosin 10 mg PO BEDTIME triamcinolone acetonide 0.1% appl topical BID PRN HPI HPI rash on surgery site: Details: He is self-referred for a rash on the left upper arm. He said he has had this for a year now. He says that he had been trying different kinds of creams without any improvement. He says that the areas involved have been very itchy. Denies any skin breakdown or discharge. [facility] Medical History (Updated 04/03/24 @ 13:16 by Kishan Montanez MD) Rash Tinea pedis Simple renal cyst Chronic periodontitis Dental calculus Polyp of colon Prostatism Pulmonary emphysema Tobacco dependence Vitamin D deficiency Sleep apnea Elevated cholesterol Lung mass Chronic abdominal pain Infected epithelial inclusion cyst Epidermal cyst of neck Abscess of groin, left Nicotine dependence, cigarettes, uncomplicated Surgical History History of removal of cyst (~09/13/23) H/O excision of mass History of esophagogastroduodenoscopy (EGD) History of epidermal inclusion cyst excision (~07/15/21) History of removal of cyst H/O excision of mass (11/14/18) H/O colonoscopy (2016) History of umbilical hernia repair (03/19/19) Family History Father Colon cancer Skin cancer Mother Skin cancer Brother Stomach cancer, Onset Age: 57 Social History Alcohol intake: former Patient Tobacco Use Status: Current everyday Tobacco user Tobacco use type: Cigarette Cigarette Packs Per Day: 0.5 Cigarettes Per Day: 10 Years Smoked: 41 (onset 14) Review of Systems Const Denies chills and Denies fever(s) Card Denies chest pain at rest Resp Denies cough GI Denies abdominal pain Denies difficulty urinating Physical Exam Const General: comfortable and no acute distress Skin Other: Diffuse rash with very small vesicular areas on the left upper arm and left shoulder Assessment & Plan Assessment & Plan (1) Rash: Code(s): R21 - Rash and other nonspecific skin eruption Category: Medical Plan: He has had this rash on the left upper arm and shoulder for about a year now. I explained to him that it may be best to see a audio visual production specialist for this. I explained to him the treatment should not be surgical He says he will discuss a referral with a audio visual production specialist when he sees his primary care physician next month. Coding Level of Care Code Est Pt Level 2 (80479) Diagnoses Rash R21
== END 2024-04-03 13:16 | disposition home or self-care (01) ==
PROVIDERS: PCP Internal Medicine Geriatric Medicine; Visit Provider Surgery
DX: R21 Rash and other nonspecific skin eruption (principal)
CPT/HCPCS: 99212

== ENCOUNTER → 2024-04-03 12:28 | Outpatient (BNVA) | payer OTHER, SELFPAY | PROVIDERS: PCP Internal Medicine Geriatric Medicine; Visit Provider Surgery ==

== ENCOUNTER 2024-09-26 09:15 | Outpatient (AMB) | payer OTHER, SELFPAY ==
--- NOTE | 2024-09-26 09:18 | MHC.OFFVIS ---
Intake Visit Reasons: 6M PVR/Urinalysis Check Intake Note: Patient is present for 6M PVR/URINALYSIS CHECK Urology Medication:FAMOTIDINE,OXYBUTYNIN Antibiotic Allergy:NONE Blood Thinner:NONE Todays PVR:47ML'S Workforce Planner Required: No Allergies Iodinated Contrast Media [IV CONTRAST] Allergy (Intermediate, Verified 09/26/24 09:19) Hives iopromide [From Ultravist] Allergy (Intermediate, Verified 09/26/24 09:19) PATIENT DEVELOPED HIVES AND REDNESS ON THROAT AND CHEST bee pollen [bee stings] Allergy (Verified 09/26/24 09:19) Unknown HPI Comments Details: Arsen Martínez pleasant Colombian-speaking male. He is a patient of Dr. Ramirez. He is seen for the following urologic conditions - lower urinary tract symptoms - bladder instability - interstitial cystitis Six-month follow-up daily oxybutynin with terazosin Colombian translation provided by qualified medical insurance verifier Oxybutynin 10 mg daily with famotidine Waking 2 times at night Urge during the day Recommend reduction and coffee Trial Toviaz 2 month follow-up - if Toviaz not successful may add beta agonist Bladder at procedure appeared to have some degree of interstitial cystitis Discussed bladder irritation Discussed diet triggers Interstitial cystitis Noted at time of prostate laser Lower urinary tract symptoms Urinary frequency Drinks 6-8 cups of coffee daily Current therapy terazosin 10 mg Cystoscopy 11/03 tight prostate - laser of prostate 11/04 Concomitant obstructive sleep apnea mild PFSH Medical History (Updated 04/03/24 @ 13:16 by Kishan Montanez MD) Rash Tinea pedis Simple renal cyst Chronic periodontitis Dental calculus Polyp of colon Prostatism Pulmonary emphysema Tobacco dependence Vitamin D deficiency Sleep apnea Elevated cholesterol Lung mass Chronic abdominal pain Infected epithelial inclusion cyst Epidermal cyst of neck Abscess of groin, left Nicotine dependence, cigarettes, uncomplicated Surgical History History of removal of cyst (~09/13/23) H/O excision of mass History of esophagogastroduodenoscopy (EGD) History of epidermal inclusion cyst excision (~07/15/21) History of removal of cyst H/O excision of mass (11/14/18) H/O colonoscopy (2015) History of umbilical hernia repair (03/19/19) Family History Father Colon cancer Skin cancer Mother Skin cancer Brother Stomach cancer, Onset Age: 57 Social History Alcohol intake: former Patient Tobacco Use Status: Current everyday Tobacco user Tobacco use type: Cigarette Cigarette Packs Per Day: 0.5 Cigarettes Per Day: 10 Years Smoked: 41 (onset 14) Review of Systems Const Denies chills and Denies fever(s) Card Reports no additional complaints and Denies syncope Resp Denies cough GI Denies abdominal pain and Denies heartburn Reports as per HPI and Denies change in libido Neuro Denies syncope Psych Denies change in libido Endo Denies change in libido Physical Exam Const General: cooperative, healthy appearing, comfortable and no acute distress Orientation/consciousness: patient oriented x3 HEENT Face and sinus: Yes normal facial exam Mouth: moist mucous membranes Neck Neck: Yes normal visual inspection, Yes full ROM and Yes trachea midline Chest Chest palpation & inspection: normal inspection of the chest Resp Effort & Inspection: normal respiratory effort, able to speak in complete sentences and no respiratory distress GI Inspection: Yes normal to inspection Back/Spine/Pelvis Cervical Spine: normal cervical lordosis Thoracic/Lumbar Spine: thoracic and lumbar spine normal to inspection Skin General skin exam: no rashes or lesions noted Neuro General: patient oriented x3, gait normal, tone normal and moves all extremities Extrem General: Yes normal to inspection and Yes capillary refill normal Office Procedures Post Void Residual Post Residual Void Post Void Residual (PVR): 47 [id number] Void Residual by ultrasound Assessment & Plan Assessment & Plan (1) Urinary frequency: Code(s): R35.0 - Frequency of micturition Category: Medical (2) Chronic interstitial cystitis: Code(s): N30.10 - Interstitial cystitis (chronic) without hematuria Category: Medical (3) BPH (benign prostatic hyperplasia): Code(s): N40.0 - Benign prostatic hyperplasia without lower urinary tract symptoms Category: Medical Plan Two month follow-up office Trial Mary Orders: Orders AMB Urinalysis Automated Today Z13.9 - Encounter for screening, unspecified Medications: New fesoterodine ER 8 mg PO DAILY 30 tabs 1RF 30 days N30.10 - Interstitial cystitis (chronic) without hematuria, N40.0 - Benign prostatic hyperplasia without lower urinary tract symptoms Refilled famotidine 40 mg PO BEDTIME 90 tabs 0RF 90 days N30.10 - Interstitial cystitis (chronic) without hematuria, R39.15 - Urgency of urination Discontinued oxybutynin chloride ER Discontinued Reason: Patient Completed Course 10 mg PO DAILY 90 days 90 tabs 0RF N30.10 - Interstitial cystitis (chronic) without hematuria, R35.0 - Frequency of micturition, R39.15 - Urgency of urination Patient Instructions: This note is constructed using voice recognition software. While every effort has been made to ensure accuracy regulatory submissions associate errors may have been included. Imaging studies, laboratory and physical exam results were discussed and reviewed in detail. No major barriers to patient understanding were identified. An opportunity to ask questions regarding the treatment plan was provided. All questions were answered. The patient expressed understanding and agreement with the above treatment plan. The patient is aware they should contact our office by phone for worsening of their current condition or the appearance of new urologic symptoms. Compliance is encouraged with any medications and followup testing that is ordered. It is a privilege to participate in the urologic care of your patient. If you have any questions or concerns regarding treatment for the above conditions, or other urologic issues, please do not hesitate to contact me. The office telephone contact is [phone]. Sincerely, Dr Aureliano Gayle MD, [facility] - Urology Compassionate Specialist Care for the Genitourinary System Coding Level of Care Code Est Pt Level 4 (68911) Diagnoses Urinary frequency R35.0 Chronic interstitial cystitis N30.10 BPH (benign prostatic hyperplasia) N40.0 CPT Codes Post Residual Void - PVR CPT Code: 88917-Ndwm Void Residual by ultrasound ([id number])
== END 2024-09-26 10:06 | disposition home or self-care (01) ==
PROVIDERS: PCP Internal Medicine Geriatric Medicine; Visit Provider Urology
DX: R35.0 Frequency of micturition (principal); N30.10 Interstitial cystitis (chronic) without hematuria; N40.0 Benign prostatic hyperplasia without lower urinary tract symptoms; Z13.9 Encounter for screening, unspecified
CPT/HCPCS: 99214

== ENCOUNTER → 2024-09-26 09:15 | Outpatient (BNVA) | payer OTHER, SELFPAY | PROVIDERS: PCP Internal Medicine Geriatric Medicine; Visit Provider Urology | DX: N30.10 Interstitial cystitis (chronic) without hematuria (principal); N40.1 Benign prostatic hyperplasia with lower urinary tract symptoms; R35.0 Frequency of micturition; Z79.899 Other long term (current) drug therapy | CPT/HCPCS: 51798; 81003 ==

== ENCOUNTER 2024-10-10 06:00 | Outpatient (REF) | payer OTHER, SELFPAY ==
[2024-10-10 06:19] LABS: MANUAL DIFF FLAG NO
[2024-10-10 07:13] LABS: Basophils Absolute Auto 0.1 X10*3/uL (0.0-0.2); Basophils Percent Auto 0.9 % (0-2); Eosinophils Absolute Auto 0.2 X10*3/uL (0.0-0.4); Eosinophils Percent Auto 3.3 % (0-4); Hematocrit 47.7 % (42.0-52.0); Imm Gran Abs Auto 0.03 X10*3/uL (0.00-0.03); Imm Gran Pct Auto 0.5 % (0.0-0.4); Lymphocytes Absolute Auto 1.5 X10*3/uL (1.2-4.9); Lymphocytes Percent Auto 23.1 % (20-40); Mean Corpuscular HGB Conc 33.5 g/dl (31.0-36.0); Mean Corpuscular Hemoglobin 30.7 pg (27.0-33.0); Mean Corpuscular Volume 91.4 fL (80.0-98.0); Mean Platelet Volume 10.4 fL (9.4-12.4); Monocytes Absolute Auto 0.5 X10*3/uL (0.1-1.2); Monocytes Percent Auto 7.9 % (2-11); Neutrophils Absolute Auto 4.1 x10*3/uL (2.0-8.3); Neutrophils Percent Auto 64.3 % (45-73); Platelet Count 231 X10*3/uL (160-400); Red Blood Count 5.22 X10*6/uL (4.60-5.80); Red Cell Distribution Width 13.8 % (11.0-16.0); White Blood Count 6.3 X10*3/uL (4.8-10.8)
[2024-10-10 07:24] LABS: Estimated Average Glucose 108 mg/dL; Hemoglobin A1C 149.3893 umol/L; Hemoglobin A1c % 5.4 % (<6.0); Total Hemoglobin (HGBA1C) 4184.1442 umol/L
[2024-10-10 07:35] LABS: Anion Gap 9 (12-20); Blood Urea Nitrogen 18 mg/dL (9-16); Calcium 9.2 mg/dL (8.4-10.2); Carbon Dioxide 26 mmol/L (22-29); Chloride 108 mmol/L (96-108); Estimated Glomerular Filt Rate > 60; Glucose Random 93 mg/dL (60-115); Iron 135 mcg/dL (45-160); Percent Iron Saturation 48 % (15-50); Potassium 4.3 mmol/L (3.3-5.1); Sodium 139 mmol/L (135-145); Total Iron Binding Capacity 281 mcg/dL (228-428); Unsaturated Iron Binding 146 ug/dL
== END 2024-10-10 06:01 | disposition home or self-care (01) ==
LOC: HO.LAB 06:00
PROVIDERS: PCP Internal Medicine Geriatric Medicine; Visit Provider Internal Medicine Geriatric Medicine
DX: R20.2 Paresthesia of skin (principal); G25.81 Restless legs syndrome; Z13.1 Encounter for screening for diabetes mellitus
CPT/HCPCS: 36415; 80048; 83036; 83540; 85025

== ENCOUNTER → 2024-11-20 19:30 | Outpatient (REF) | payer OTHER, SELFPAY ==
--- OUTSIDE RECORDS SUMMARY | 2024-11-20 21:35 | XMS_ITS | Encounter Summary ---
Author Organization [facility] Address [address] [place] [address] [address] [place] [address] Care Team Providers Care Idea Worker Name Role Phone Name, Ernst COPE Primary Care Provider [phone] Encounter Details Date Type Department Care Team (Late st Contact Info) Description 01/23/2023 Abstract [facility] MEDICINE [address] [place], [place] [phone] Name, MD Ernst [address] [place] [address] Social History Tobacco Use Types Packs/Day Years Used Date Smoking Tobacco: Every Day Cigarettes Smokeless Tobacco: Never Depression Answer Date Recorded Patient Health Questionnaire-9 Score 1 10/06/2022 Depression Answer Date Recorded Patient Health Questionnaire-2 Score 0 10/06/2022 Sex and Gender Information Value Date Recorded Sex Assigned at Male 06/13/2022 10:14 AM EDT Legal Sex Male 10:14 AM EDT Gender Identity Male 06/13/2022 10:14 AM EDT Sexual Orientation Straight 06/13/2022 10 :14 AM EDT documented as of this encounter Plan of Treatment Upcoming Encounters Date Type Department Care Team (Late st Contact Info) Description 02/06/2025 8:00 AM EDT Office Visit [facility] ADULT DENTAL [address] [place], [place] [phone] Jennifer Castaneda [address] [place] [address] documented as of this encounter Procedures Procedure Name Priority Date/Time Associated Diagnosis Comments HM COLONOSCOPY Routine 05/25/2022 12:47 PM EDT documented in this encounter Results * Colonoscopy (05/25/2022 12:47 PM EDT) Colonoscopy Normal Normal Narrative Chiquis Tripp - 05/25/2022 12:47 PM EDT Recommended 5 year follow up ( [facility]) us Historical Provider HEALTH MAINTENANCE Final Result documented in this encounter Visit Diagnoses Not on filedocumented in this encounter Additional Health Concerns Assessment Noted Time PHQ-9 Depression Total Score: 1 10/06/19 23 9:13 AM EST documented as of this encounter Care Teams Idea Worker Relationship Specialty Start Date End Date Name, MD Ernst [address] [place] [address] PCP - General Family Medicine 10/08/15 documented as of this encounter
--- OUTSIDE RECORDS SUMMARY | 2024-11-20 21:35 | XMS_ITS | Encounter Summary ---
Author Organization [employer] [facility] Address [address] [place] [address] [address] [place] [address] Care Team Providers Care Tearer Press Clipping Name Role Phone Name, Ernst COPE Primary Care Provider [phone] Encounter Details Date Type Department Care Team (Latest Contact Info) Description 04/24/[address] [facility] CONVERSIONS Dental, Provider, DDS Social History Tobacco Use Types Packs/Day Years Used Date Smoking Tobacco: Never Assessed Sex and Gender Information Value Date Recorded Sex Assigned at Male 06/13/2022 10:14 AM EDT Legal Sex Male 10:14 AM EDT Gender Identity Male 06/13/2022 10:14 AM EDT Sexual Orientation Straight 06/13/2022 10 :14 AM EDT documented as of this encounter Plan of Treatment Upcoming Encounters Date Type Department Care Team (Late st Contact Info) Description 02/06/2025 8:00 AM EDT Office Visit [facility] ADULT DENTAL [address] [place] [address] Leonel, Jennifer [address] [place] [address] documented as of this encounter Visit Diagnoses Not on filedocumented in this encounter Care Teams Tearer Press Clipping Relationship Specialty Start Date End Date Name, MD Ernst [address] [place] [address] PCP - General Family Medicine 10/08/15 documented as of this encounter
--- OUTSIDE RECORDS SUMMARY | 2024-11-20 21:35 | XMS_ITS | Encounter Summary ---
Author Organization [employer] Address [address] [facility] [address] [place] [address] Care Team Providers Care Home Insurance Agent Name Role Phone Name, Ernst COPE Primary Care Provider Encounter Details Date Type Department Care Team (Late st Contact Info) Description 09/06/2023 Abstract [facility] MEDICINE [address] [place], [place] [phone] Name, MD Ernst [address] [place] [address] Social History Tobacco Use Types Packs/Day Years Used Date Smoking Tobacco: Every Day Cigarettes Smokeless Tobacco: Never Alcohol Use Standard Drinks/Week Comments Never 0 (1 standard drink = 0.6 oz pur e alcohol) Depression Answer Date Recorded Patient Health Questionnaire-9 Score 1 10/06/2022 Housing Stability Answer Date Recorded What is your housing situation today? I have scargretel garcia 06/13/[address] you li ve. Do you have problems with any of the following? None of the above 06/13/2023 Food Insecurity Answer Date Recorded Within the past 12 months, y ou worried that your food would run out before you got money to buy more: Never True 06/13/2023 Within the past 12 months,th e food you bought just didn't last and you didn't have enough money to get more: Never True Transportation Answer Date Recorded In the past 12 months, has l ack of transportation kept you from medical appts, meetings, work or from getting things needed for daily living? No 06/13/2023 Utilities Answer Date Recorded In the past 12 months, has t he electric, gas, oil or water company threatened to shut off services in your home? No 06/13/2023 Depression Answer Date Recorded Patient Health Questionnaire-2 Score 0 07/19/2023 Sex and Gender Information Value Date Recorded Sex Assigned at Male 06/13/2022 10:14 AM EDT Legal Sex Male 10:14 AM EDT Gender Identity Male 06/13/2022 10:14 AM EDT Sexual Orientation Straight 06/13/2022 10 :14 AM EDT documented as of this encounter Plan of Treatment Upcoming Encounters Date Type Department Care Team (Late st Contact Info) Description 02/06/2025 8:00 AM EDT Office Visit [facility] ADULT DENTAL [address] [place] [address] Jennifer Castaneda [address] [place] [address] documented as of this encounter Visit Diagnoses Not on filedocumented in this encounter Additional Health Concerns Assessment Noted Time PHQ-9 Depression Total Score: 1 10/06/19 23 9:13 AM EST documented as of this encounter Care Teams Home Insurance Agent Relationship Specialty Start Date End Date Name, MD Ernst [address] [place] [address] PCP - General Family Medicine 10/08/15 documented as of this encounter
--- OUTSIDE RECORDS SUMMARY | 2024-11-20 21:35 | XMS_ITS | Encounter Summary ---
Author Organization [facility] Address [address] [place] [address] [address] [place] [address] Care Team Providers Care Owner Oral Surgeon Name Role Phone Name, Ernst COPE Primary Care Provider [phone] Encounter Details Date Type Department Care Team (Latest Contact Info) Description 04/07/[address] [facility] CONVERSIONS Dental, Provider, DDS Social History [...] 8:00 AM EDT Office Visit [facility] ADULT DENTAL [address] [place] [address] Leonel, Jennifer [address] [place] [address] documented as of this encounter Visit Diagnoses Not on filedocumented in this encounter Care Teams Owner Oral Surgeon Relationship Specialty Start Date End Date Name, MD Ernst [address] [place] [address] PCP - General Family Medicine 10/08/15 documented as of this encounter
--- OUTSIDE RECORDS SUMMARY | 2024-11-20 21:35 | XMS_ITS | Encounter Summary ---
Author Organization [employer] Address [address] [facility] 7 [place] [address] Care Team Providers Care Staff Design Engineer Name Role Phone Name, Ernst COPE Primary Care Provider [phone] Reason for Visit * Reason Onset Date Comments Pre Op 09/08/2023 Encounter Details Date Type Department Care Team ([facility] st Contact Info) Description 09/08/2023 Telephone [facility] [address] [place], [place] [id number] Name, MD Ernst [address] [place] [address] Pre Op Social History Tobacco Use Types Packs/Day Years Used Date Smoking Tobacco: Every Day Cigarettes Smokeless Tobacco: Never Alcohol Use Standard Drinks/Week Comments Never 0 (1 standard drink = 0.6 oz pur e alcohol) Depression Answer Date Recorded Patient Health Questionnaire-9 Score 1 10/06/2022 Housing Stability Answer Date Recorded What is your housing situation today? I have scar garcia 06/13/[address] you [...] AM EDT documented as of this encounter Miscellaneous Notes * Telephone Encounter - Lucie Ingram RN - 09/08/2023 2:37 PM EST Return T/C to [facility] for below message pt. Was schedule for Pre -op apt. On Meghan verbally agreed and understood. Date of Surgery: 11/06/23 Surgical procedure being done: Green Light Laser Prostate incision Type of anesthesia: General Lab needed: if pcp sees necessary EKG: Yes Last surgeon note requested. Surgeon's name: [facility] name: [facility] Surgeon's office number: [phone] opt 3 Surgeon's office fax number: [phone] Contact name (person you spoke with): Meghan * Telephone Encounter - Ryan Del Cid - 09/08/2023 10:50 AM EST Date of Surgery: 11/06/23 Surgical procedure being done: Green Light Laser Prostate incision Type of anesthesia: General Lab needed: Whatever pcp sees necessary EKG: No Surgeon's name: [facility] name: [facility] Surgeon's office number: [phone] opt 3 Surgeon's office fax number: [phone] Contact name (person you spoke with): Meghan documented in this encounter Plan of Treatment Upcoming Encounters Date Type Department Care Team (Late st Contact Info) Description 02/06/2025 8:00 AM EDT Office Visit [facility] [address] [place] [address] Leonel, Jennifer [address] [place] [address] documented as of this encounter Visit Diagnoses Not on filedocumented in this encounter Additional Health Concerns Assessment Noted Time PHQ-9 Depression Total Score: 1 10/06/19 23 9:13 AM EST documented as of this encounter Care Teams Staff Design Engineer Relationship Specialty Start Date End Date Name, MD Ernst [address] [place] [address] PCP - General Family Medicine 10/08/15 documented as of this encounter
--- OUTSIDE RECORDS SUMMARY | 2024-11-20 21:35 | XMS_ITS | Encounter Summary ---
Author Organization [facility] Address [address] [place] [address] 7 [place] [address] Care Team Providers Care Field Technician Name Role Phone Name, Ernst COPE Primary Care Provider [phone] Encounter Details Date Type Department Care Team (Latest Contact Info) Description 10/13/2020 Abstract [facility] Dental, Provider, DDS Social History Tobacco [...] Description 02/06/2025 8:00 AM EDT Office Visit [facility] [address] [place] [address] Leonel, Jennifer [address] [place] [address] documented as of this encounter Visit Diagnoses Not on filedocumented in this encounter Care Teams Field Technician Relationship Specialty Start Date End Date Name, MD Ernst [address] [place] [address] PCP - General Family Medicine 10/08/15 documented as of this encounter
--- OUTSIDE RECORDS SUMMARY | 2024-11-20 21:35 | XMS_ITS | Clinical Summary ---
Author Organization [address] [facility] Address [address] [place] [address] Phone Care Team Providers Care Tool Machinist Name Role Phone Physician, Pcp Unknown Primary Care Provider Angelia vailable Allergies Active Allergy Reactions Criticality Noted Date Comments Lovastatin 07/04/2013 dyspepsia Medications betamethasone, augmented, (DIPROLENE-AF) 0.05 % cream Apply to affected area twice daily 03/12/2015 Active diclofenac (Voltaren) 1 % topical gel Apply once a day to the affected skin 04/22/2014 Active meloxicam (MOBIC) 7.5 mg tablet Take 1 Tab by mouth daily. 05/21/2015 Active omeprazole (PriLOSEC) [address] capsule TAKE ONE CAPSULE BY MOUTH EVERY DAY 10/13/2014 Active Active Problems Problem Noted Date Diagnosed Date Osteoarthritis, hand 06/11/2014 Alcohol abuse, episodic 04/06/2012 Heartburn 04/15/2010 Rectal bleeding 04/15/2010 Overview (08/02/2024): 06/27/2010. IMPRESSION: Up to cecum, mild diverticulosis, normal colon exam PLAN: Repeat screening colonoscopy in 10 years High fiber diet High cholesterol 06/25/2009 ANA (obstructive sleep apnea) 05/29/2009 Overview (08/02/2024): I got a phone call (04/14/11) from November explaining me that the patient was not using the CPAP. He restarted using CPAP on 2012. Head ache 03/05/2009 Tobacco use disorder 03/05/2009 Encounters Date Type Department Care Team Description 10/15/2024 1:30 PM EST Consult Orthopedic Surgery - [place] [address] [facility] [address] [place] [address] Len Kang, DPM Pain in left toe(s) (Primary Dx); Arthritis of both feet; Hammertoes of both feet; Dermatophytosis, nail from Last 3 Months Immunizations Name Administration Dates Next Due Influenza trivalent, with pr eservative (Fluzone; Afluria) 6mo and older 06/11/2014,07/04/2013,07/20/2012 Tdap Tetanus diptheria acell ular pertussis (Boostrix; Adacel) 7yo and older 03/22/2013 Surgical History Surgery Date Site/Laterality Comments OTHER SURGICAL HISTORY - PROCEDURE: HISTORICAL EAR SURGERY; COMMENT: TM tubes - bilateral OTHER SURGICAL HISTORY PROCEDURE: NE ESOPHAGOSCOPY FLEXIBLE TRANSORAL DIAGNOSTIC; COMMENT: GERD resolved after H.pylori treatment COLONOSCOPY 06/17/2010 PROCEDURE: NE COLONOSCOPY STOMA DX INCLUDING COLLJ SPEC SPX Medical History Medical History Date Comments ANA (obstructive sleep apnea) 05/29/2009 DX :ANA (obstructive sleep apnea); COMMENT: I got a phone call (04/14/11) from November explaining me that the patient was not using the CPAP. He restarted using CPAP on 2012. Rectal bleeding 04/15/2010 DX:Rectal bleedi ng; COMMENT: 06/27/2010. IMPRESSION: Up to cecum, mild diverticulosis, normal colon exam PLAN: Repeat screening colonoscopy in 10 years High fiber diet High cholesterol 06/25/2009 DX:High cholest juancarlos Heartburn 04/15/2010 DX:Heartburn Tobacco use disorder 03/05/2009 DX:Tobacco use disorder Family History Medical History Relation Name Comments Arthritis Brother 1 Arthritis Mother Arthritis Sister 1 Relation Name Status Comments Brother 1 Brother 2 Alive Brother 3 Alive Daughter Alive Father DM. HTN.cancer of the colon, high cholesterol. Alcoholism Mother cancer, high ch olesterol Sister 1 Sister 2 Alive cancer? Sister 3 Alive Son 1 Alive Son 2 Alive Social History Tobacco Use Types Packs/Day Years Used Date Smoking Tobacco: Every Day Cigarettes Smokeless Tobacco: Never Alcohol Use Standard Drinks/Week Comments Yes 0 (1 standard drink = 0.6 oz pur e alcohol) Sex and Gender Information Value Date Recorded Sex Assigned at Not on file Legal Sex Male 9:03 AM EST Gender Identity Not on file Sexual Orientation Not on file Obstetrics History Last Filed Vital Signs Vital Sign Reading Time Taken Comments Blood Pressure - - Pulse - - Temperature - - Respiratory Rate - - Oxygen Saturation - - Inhaled Oxygen Concentration - - Weight 89.4 kg (197 lb) 10/15/2024 1:21 PM EST Height 167.6 cm (5' 6 ) 10/15/2024 1:21 PM EST Body Mass Index 31.8 10/15/2024 1:21 PM EST Plan of Treatment Upcoming Encounters Date Type Department Care Team (Late st Contact Info) Description 12/18/2024 3:00 PM EDT Office Visit Orthopedic Surgery - [place] [address] [address] Len Kang, DPDeonna [address] [address] Health Maintenance Due Date Last Done Comments Pneumococcal Vaccine: 50+ Years (1 of 2 - PCV) 1983 Pneumococcal Vaccine: Pediatrics (0 to 5 Years) and At-Risk Patients (6 to 64 Years) (1 of 2 - PCV) 1983 Zoster Vaccines (1 of 2) 2014 COVID-19 Vaccine ( season) 2024 Influenza Vaccine (#1) 2024 6, 06/11/2014, 07/04/2013, Additional history exists Cholesterol Screening (Lipid Panel) 07/30/2024 09/04/2014 Colorectal Cancer Screening: Colonoscopy 07/30/2024 Depression Screening 07/30/2024 HIV Screening 07/30/2024 Hepatitis C Screening 07/30/2024 Social Influencers of Health Screening 07/30/2024 DTaP,Tdap,and Td Vaccines (3 - Td or Tdap) 10/17/2028 10/17/2018, 03/22/2013 RSV Immunization Adult Patients (1 - 1-dose 75+ series) 2039 HIB Vaccines Aged Out No longer eligi ble based on patient's age to complete this topic HPV Vaccines Aged Out No longer eligi ble based on patient's age to complete this topic Hepatitis A Vaccines Aged Out No long er eligible based on patient's age to complete this topic Hepatitis B Vaccines Aged Out No long er eligible based on patient's age to complete this topic IPV Vaccines Aged Out No longer eligi ble based on patient's age to complete this topic MMR Vaccines Aged Out No longer eligi ble based on patient's age to complete this topic Meningococcal ACWY Vaccine Aged Out N o longer eligible based on patient's age to complete this topic Meningococcal B Vaccine Aged Out No l onger eligible based on patient's age to complete this topic RSV Immunization Patients Under 20 months Aged Out No longer eligible based on patient's age to complete this topic Varicella Vaccines Aged Out No longer eligible based on patient's age to complete this topic Procedures Procedure Name Priority Date/Time Associated Diagnosis Comments LIPID PANEL Routine 09/04/2014 from Last 3 Months or Most Recently Relevant to Health Maintenance Results * (ABNORMAL) Lipid panel (09/04/2014) LDL/HDL Ratio 7(A) 0 - 4 Triglycerides 387(A) 0 - 150 mg/dL Cholesterol 228(A) 0 - 200 mg/dL HDL 31(A) >=40 mg/dL LDL Cholesterol 120(A) 0 - 100 mg/dL Blood Venous blood specimen / Unknown [facility] Provider LAB BLOOD ORDERABLES Juil vital Result from Last 3 Months or Most Recently Relevant to Health Maintenance Insurance [facility] MEDICAID ADVANTAGE [address] [place] [address] Care Teams Tool Machinist Relationship Specialty Start Date End Date Physician, Pcp Unknown PCP - General 07/30/24
--- OUTSIDE RECORDS SUMMARY | 2024-11-20 21:35 | XMS_ITS | Clinical Summary ---
Author Organization [employer] Address [address] [facility] 7[address] [place] [address] Care Team Providers Care In Home Aide Name Role Phone Name, Ernst COPE Primary Care Provider [phone] Allergies Active Allergy Reactions Criticality Noted Date Comments Bee Pollen 11/06/2023 Other Reaction(s): Unknown Iodinated Contrast Media Hives High 12/17/2015 Other Reaction(s): PATIENT DEVELOPED HIVES AND REDNESS ON THROAT AND CHEST Iodine 09/14/2022 Lovastatin 07/04/2013 dyspepsia Medications nicotine polacrilex (Commit) 4 MG lozengeIndicati ons:Tobacco dependence Dissolve 1 lozenge (4 mg) in the mouth every 1 (one) hour if needed for smoking cessation. 100 lozenge 3 Active Spacer/Aero-Hol ding Chambers (OptiChamber Yenny) miscIndications :Influenza-like symptoms 1 each every 4 (four) hours if needed (asthma). 1 each 3 Active Blood Pressure Monitoring (Omron 3 Series BP Monitor) device USE TO CHECK BLOOD PRESSURE TWICE DAILY 3 Active pravastatin (Pravachol) 20 MG tabletIndicatio ns:High cholesterol Take 1 tablet (20 mg) by mouth in the morning. 30 tablet 11 3 Active Additional Information Patient not taking.Reported on 07/13/2023 diphenhydrAMINE (BENADryl) 25 MG capsule Take 1 capsule (25 mg) by mouth every 4 (four) hours if needed for itching. 30 capsule 3 Active ciclopirox (Loprox) 0.77 % cream Apply topically 2 times daily. 30 g 1 3 Active EPINEPHrine (Epipen) 0.3 MG/0.3ML injection syringe Inject 0.3 mL (0.3 mg) as directed 1 (one) time if needed for anaphylaxis for up to 1 dose. Inject into upper leg. Call 911 after use. 1 each 1 3 Active famotidine (Pepcid) 40 MG tablet Take 40 mg by mouth at bedtime. 4 Active oxybutynin XL (Ditropan-XL) 10 MG 24 hr tablet TAKE 1 TABLET ORALLY DAILY FOR 90 DAYS 4 Active clobetasol (Temovate) 0.05 % ointmentIndicat ions:Granuloma annulare Apply topically 2 times daily. 30 g 2 4 Active gabapentin (Neurontin) 100 MG capsule Take 1 capsule (100 mg) by mouth at bedtime. 30 capsule 5 Active albuterol 108 (90 Base) MCG/ACT inhalerIndicati ons:ANA (obstructive sleep apnea) Inhale 2 puffs every 4 (four) hours if needed for wheezing or shortness of breath. 18 g 1 5 10/03/19 26 Active terbinafine (LamISIL) 250 MG tabletIndicatio ns:Onychomycosi s Take 1 tablet (250 mg) by mouth Once per day. 90 tablet 4 11/08/19 25 Active Problems Problem Noted Date Diagnosed Date Abscess of groin, left 01/03/2024 Acid reflux 01/03/2024 BPH (benign prostatic hyperplasia) 01/03/2024 Chronic abdominal pain 01/03/2024 Diverticulosis of colon 01/03/2024 Early satiety 01/03/2024 Epidermal cyst of neck 01/03/2024 Excessive daytime sleepiness 01/03/2024 Infected epithelial inclusion cyst 01/03/2024 Microscopic hematuria 01/03/2024 Urinary frequency 01/03/2024 Urinary urgency 01/03/2024 Obstructive sleep apnea 01/03/2024 Sessile colonic polyp 01/03/2024 Nicotine dependence, cigarettes, uncomplicated 0 01/03/2024 Allergy to bee sting 07/19/2023 Staining (discoloration) of teeth 11/03/2022 Chronic periodontitis 11/03/2022 Gingival recession, generalized 11/03/2022 High cholesterol 10/13/2022 Pulmonary emphysema 10/06/2022 Vitamin D deficiency 10/18/2018 Tinea pedis 06/22/2016 Prostatism 01/13/2016 Overview (10/06/2022): Follows at [facility] Polyp of colon 01/13/2016 Overview (10/06/2022): Follow at [facility]. Last colonoscopy 06/04. Had benign polyp removed, recommended repeat in 5 years Lung mass 01/13/2016 Overview (10/06/2022): Stable on serial CT of the chest, last CT 2017 Simple renal cyst 01/13/2016 Tobacco dependence syndrome 11/11/2015 Osteoarthritis, hand 06/11/2014 Alcohol abuse, episodic 04/06/2012 Heartburn 04/15/2010 Rectal bleeding 04/15/2010 Overview (10/03/2024): 06/27/2010. IMPRESSION: Up to cecum, mild diverticulosis, normal colon exam PLAN: Repeat screening colonoscopy in 10 years High fiber diet ANA (obstructive sleep apnea) 05/29/2009 Overview (10/03/2024): Not on CPAP I got a phone call (04/14/11) from November explaining me that the patient was not using the CPAP. He restarted using CPAP on 2012. Head ache 03/05/2009 Tobacco use disorder 03/05/2009 Encounters Date Type Department Care Team Description 11/07/2024 3:00 PM EDT Office Visit [facility] ADULT DENTAL [address] [place] [address] Ta Doherty DMD 10/31/2024 Travel 10/03/2024 11:30 AM EST Office Visit [facility] MEDICINE [address] [place] [address] Name, MD Ernst Restless legs (Primary Dx); Paresthesia of both feet; ANA (obstructive sleep apnea) 10/03/2024 Travel 08/26/2024 8:00 AM EST Office Visit [facility] ADULT DENTAL [address] [place] [address] Ta Doherty, MARLEN 08/25/2024 Travel from Last 3 Months Immunizations Name Administration Dates Next Due Influenza injectable quadriv alent IIV4 with preservative 06/22/2016 Influenza, IIV3, injectable 06/11/2014, 3,07/20/2012 Influenza, seasonal, injecta ble, preservative free 06/11/2014,07/04/2013,07/20/2012 Tdap 10/17/2018,03/22/2013 Social History Tobacco Use Types Packs/Day Years Used Date Smoking Tobacco: Every Day Cigarettes Smokeless Tobacco: Never Tobacco Cessation:Ready to Q uit: Not Asked; Counseling Given: Not Answered Alcohol Use Standard Drinks/Week Comments Never 0 (1 standard drink = 0.6 oz pur e alcohol) Depression Answer Date Recorded Patient Health Questionnaire-9 Score 13 10/03/2024 Patient Health Questionnaire-9 Score 13 10/03/2024 Last PHQ-9: Questionnaire Data Not on file 0 10/03/2024 Housing Stability Answer Date Recorded What is your housing situation today? I have scar garcia 10/03/[address] you li ve. Do you have problems with any of the following? None of the above 10/03/2024 Food Insecurity Answer Date Recorded Within the past 12 months, y ou worried that your food would run out before you got money to buy more: Never True 10/03/2024 Within the past 12 months,th e food you bought just didn't last and you didn't have enough money to get more: Never True Transportation Answer Date Recorded In the past 12 months, has l ack of transportation kept you from medical appts, meetings, work or from getting things needed for daily living? No 10/03/2024 Utilities Answer Date Recorded In the past 12 months, has t he electric, gas, oil or water company threatened to shut off services in your home? No 10/03/2024 Depression Answer Date Recorded Patient Health Questionnaire-2 Score 0 10/03/2024 Internet Access Answer Date Recorded Internet Access Q1 Yes 10/03/2024 Internet Access Q2 Not on file 10/03/2024 Sex and Gender Information Value Date Recorded Sex Assigned at Male 06/13/2022 10:14 AM EDT Legal Sex Male 10:14 AM EDT Gender Identity Male 06/13/2022 10:14 AM EDT Sexual Orientation Straight 06/13/2022 10 :14 AM EDT Last Filed Vital Signs Vital Sign Reading Time Taken Comments Blood Pressure 142/82 11/07/2024 2:28 PM EDT Pulse 72 11/07/2024 2:28 PM EDT Temperature 36.9 ??C (98.4 ??F) 10/03/2024 11:[address] Respiratory Rate 12 10/03/2024 11:17 AM EST Oxygen Saturation 97% 10/03/2024 11:17 AM EST Inhaled Oxygen Concentration - - Weight 90 kg (198 lb 6.4 oz) 10/03/2024 11:17 AM EST Height 167.6 cm (5' 6 ) 10/03/2024 11:17 AM EST Body Mass Index 32.02 10/03/2024 11:17 AM EST Plan of Treatment Upcoming Encounters Date Type Department Care Team (Late st Contact Info) Description 02/06/2025 8:00 AM EDT Office Visit [facility] ADULT DENTAL [address] [place] [address] Leonel, Jennifer [address] [place] [address] Health Maintenance Due Date Last Done Comments CT Colonography 1964 FIT DNA/Cologuard 1964 FIT 1964 FOBT 1964 HIV Screening 1964 Sigmoidoscopy 1964 Alcohol/Substance Use Screening 1976 Hepatitis C Screening 1982 Pneumococcal Vaccine: 50+ Years (1 of 2 - PCV) 1983 Zoster Vaccines (1 of 2) 2014 COVID-19 Vaccine ( - season) 2024 Influenza Vaccine (#1) 2024 6, 06/11/2014, 06/11/2014, Additional history exists RSV Patients and Patients Aged 60 years or older (1 - Risk 60-74 years 1-dose series) 2024 Dental Oral Exam 01/31/2025 08/01/2024, , 04/21/2022 Dental Prophylaxis 01/31/2025 08/01/2024, 0 02/01/2024, 06/23/2023, Additional history exists Depression Monitoring 04/02/2025 10/03/2024, 025 Dental X-Ray: Bitewings 08/02/2025 08/01/20 24, 06/23/2023, 04/07/2022 Depression Screening 10/03/2025 10/03/2024, 10/03/19 SDOH Screening 10/03/2025 10/03/2024 Tobacco Screening 11/07/2025 11/07/2024 Dental X-Ray: Full Mouth 05/11/2026 04/15/2021 Pos tponed from 04/16/2024 (Insurance / Financial) Colonoscopy 05/25/2027 05/25/2022 Colorectal Cancer Screening 05/25/2027 Lipid Panel 10/13/2027 10/12/2022, 05/27/2021 DTaP/Tdap/Td Vaccines (3 - Td or Tdap) 10/17/2028 10/17/2018, 03/22/2013 HIB Vaccines Aged Out No longer eligi [...] patient's age to complete this topic Meningococcal Vaccine Aged Out No raffi jaison eligible based on patient's age to complete this topic RSV under 20 months Aged Out No longe r eligible based on patient's age to complete this topic Rotavirus Vaccines Aged Out No longer eligible based on patient's age to complete this topic Procedures Procedure Name Priority Date/Time Associated Diagnosis Comments 10 F(V) RESIN-BASED COMPOSITE - 1 SURF, ANTERIOR Routine 11/07/2024 3:00 PM EDT 9 F(V) RESIN-BASED COMPOSITE - 1 SURF, ANTERIOR Routine 11/07/2024 3:00 PM EDT HEMOGLOBIN A1C Routine 10/10/2024 6:15 AM EST Paresthesia of both feet Restless legs BASIC METABOLIC PANEL Routine 10/10/2024 6:15 AM EST Paresthesia of both feet Restless legs CBC WITH AUTO DIFFERENTIAL Routine 10/10/2024 6:15 AM EST Paresthesia of both feet Restless legs IRON AND TOTAL IRON BINDING CAPACITY Routine 10/10/2024 6:15 AM EST Paresthesia of both feet Restless legs 8 MIFL RESIN-BASED COMPOSITE - 4 OR MORE SURFACES (ANTERIOR) Routine 08/26/2024 8:00 AM EST CASE PRESENTATION, DETAILED AND EXTENSIVE TREATMENT PLANNING Routine 08/26/2024 8:00 AM EST 2 DL(V) AMALGAM - 2 SURF, PRIMARY OR PERMANENT Routine 08/26/2024 8:00 AM EST PROPHYLAXIS - ADULT Routine 08/01/2024 9 :00 AM EST Staining (discoloration) of teeth Dental calculus BITEWINGS - 4 RADIOGRAPHIC IMAGES Routine 08/01/2024 9:00 AM EST Gingival recession, generalized Staining (discoloration) of teeth Dental calculus Chronic periodontitis Tooth decalcification Chronic dental caries extending to pulp PERIODIC ORAL EVALUATION - ESTABLISHED PATIENT Routine 08/01/2024 9:00 AM EST LIPID PANEL, STANDARD Routine 10/12/2022 8:17 AM EST Screening for cholesterol level HM COLONOSCOPY Routine 05/25/2022 12:47 PM EDT from Last 3 Months or Most Recently Relevant to Health Maintenance Results * (ABNORMAL) CBC auto differential (10/10/2024 6:15 AM EST) White Blood Count 6.3 4.8 - 10.8 X10*3/uL [facility] Red Blood Count 5.22 4.60 - 5.80 X10*6/uL [facility] Hemoglobin 16.0 14.0 - 18.0 g/dl [facility] Hematocrit 47.7 42.0 - 52.0 % [facility] Mean Corpuscular Volume 91.4 80.0 - 98.0 fL [facility] Mean Corpuscular Hemoglobin 30.7 27.0 - 33.0 pg [facility] Mean Corpuscular HGB Conc 33.5 31.0 - 36.0 g/dl [facility] Red Cell Distribution Width 13.8 11.0 - 16.0 % [facility] Platelet Count 231 160 - 400 X10*3/uL [facility] Mean Platelet Volume 10.4 9.4 - 12.4 fL [facility] Neutrophils Percent Auto 64.3 45 - 73 % [facility] Imm Gran Pct Auto 0.5(H) 0.0 - 0.4 % [facility] Lymphocytes Percent Auto 23.1 20 - 40 % [facility] Monocytes Percent Auto 7.9 2 - 11 % [facility] Eosinophils Percent Auto 3.3 0 - 4 % [facility] Basophils Percent Auto 0.9 0 - 2 % [facility] NRBC Pct Auto 0.0 0.0 - 0.2 /100WBC [facility] Neutrophils Absolute Auto 4.1 2.0 - 8.3 x10*3/uL [facility] Imm Gran Abs Auto 0.03 0.00 - 0.03 X10*3/uL [facility] Lymphocytes Absolute Auto 1.5 1.2 - 4.9 X10*3/uL [facility] Monocytes Absolute Auto 0.5 0.1 - 1.2 X10*3/uL [facility] Eosinophils Absolute Auto 0.2 0.0 - 0.4 X10*3/uL [facility] Basophils Absolute Auto 0.1 0.0 - 0.2 X10*3/uL [facility] NRBC Abs Auto 0.000 0.0 - 0.012 X10*3/uL [facility] Blood Venous blood specimen / Unknown 10/10/2024 6:15 AM EST 10/10/2024 6:18 AM EST us Ernst Name MD LAB BLOOD ORDERABLES Final Resul t [facility] [address] [place] [phone] * Iron And Total Iron Binding Capacity (10/10/2024 6:15 AM EST) Iron 135 45 - 160 mcg/dL [facility] Total Iron Binding Capacity 281 228 - 428 mcg/dL [facility] Percent Iron Saturation 48 15 - 50 % [facility] Unsaturated Iron Binding 146 ug/dL [facility] Blood Venous blood specimen / Unknown 10/10/2024 6:15 AM EST 10/10/2024 6:18 AM EST us Ernst Ramirez MD LAB BLOOD ORDERABLES Final Resul t Performing Organization Address [facility] Co de Phone Number [facility] [address] [place] [phone] * Hemoglobin A1c (10/10/2024 6:15 AM EST) Hemoglobin A1c 5.4 <6.0 % [facility] Comment:Hemoglobin A1C Refer ence Range Adults: 4.8 - 6.0 % Non diabetic: < 6.0 % Goal: < 7.0 %Additional Action Suggested: > 8.0 %Note: Hemoglobin A1c results are invalid for patients with abnormal amounts of HbF. Blood transfusions may impact the HbA1c concentration in the patient sample. Estimated Average Glucose 108 mg/dL [facility] Comment:eAG = Estimated ave rage glucose which is %A1C expressed asaverage glucose, using the formula of the S9C-VowzdulWaopmvi Glucose study (ADAG), Diabetes Care, Vol.31,#8,Mar. 2007 Blood Venous blood specimen / Unknown 10/10/2024 6:15 AM EST 10/10/2024 6:18 AM EST us Ernst Ramirez MD LAB BLOOD ORDERABLES Final Resul t Performing Organization Address [facility]/ZIP Co de Phone Number [facility] [address] [place] [phone] * (ABNORMAL) Basic Metabolic Panel (10/10/2024 6:15 AM EST) Pathologist [facility] Sodium 139 135 - 145 mmol/L [facility] Potassium 4.3 3.3 - 5.1 mmol/L [facility] Chloride 108 96 - 108 mmol/L [facility] Carbon Dioxide 26 22 - 29 mmol/L [facility] Anion Gap 9(L) 12 - 20 [facility] Urea Nitrogen (BUN) 18(H) 9 - 16 mg/dL [facility] Creatinine, Serum 0.76 0.5 - 1.4 mg/dL [facility] Estimated Glomerular Filt Rate >60 [facility] Comment:Chronic Kidney Disea se: Estimated GFR < 60 mL/min/1.73e9Lxywvj Kidney Disease: Estimated GFR < 15 mL/min/1.73m2 Glucose 93 60 - 115 mg/dL [facility] Calcium 9.2 8.4 - 10.2 mg/dL [facility] Blood Venous blood specimen / Unknown 10/10/2024 6:15 AM EST 10/10/2024 6:18 AM EST us Ernst Ramirez MD LAB BLOOD ORDERABLES Final Resul t [facility] [address] [place] [address] [phone] * (ABNORMAL) Lipid Panel, Standard (10/12/2022 8:17 AM EST) Cholesterol, Total 228(H) <200 mg/dL [employer] [employer] [place] [employer] HDL Cholesterol 35(L) > OR = 40 mg/dL [facility] [employer] [place] [employer] Triglycerides 211(H) <150 mg/dL [facility] [employer] [place] [facility] Comment: If a non-fasting specimen was collected, consider repeat triglyceride testing on a fasting specimen if clinically indicated. Clover et al. J. of Clin. Lipidol. 2015;9:129-169. LDL Cholesterol 155(H) mg/dL (calc) [employer] [employer] [place] [employer] Comment: Reference range: <100 Desirable range <100 mg/dL for primary prevention; ?? <70 mg/dL for patients with CHD or diabetic patients with > or = 2 CHD risk factors. LDL-C is now calculated using the Boris calculation, which is a validated novel method providing better accuracy than the Friedewald equation in the estimation of LDL-C. Bora LEIVA et al. SONY. 2013;310(19): 1119-2380 (http://education.[employer]/faq/OBE632) Chol/HDLC Ratio 6.5(H) <5.0 (calc) [facility] Non-HDL Cholesterol 193(H) <130 mg/dL (calc) [facility] Comment: For patients with diabetes plus 1 major ASCVD risk factor, treating to a non-HDL-C goal of <100 mg/dL (LDL-C of <70 mg/dL) is considered a therapeutic option. Blood Venous blood specimen / Unknown 10/12/2022 8:17 AM EST 10/12/2022 8:18 AM EST Narrative [facility] - 10/13/2022 1:19 AM EST FASTING:YES FASTING: YES Ernst Ramirez MD LAB BLOOD ORDERABLES Final Resul t [facility] [address], [place] [address] [facility] [address] [facility], ([address]) [place] [address] * Hm Colonoscopy (05/25/2022 12:47 PM EDT) Colonoscopy Normal Normal Narrative Chiquis Tripp - 05/25/2022 12:47 PM EDT Recommended 5 year follow up ( [facility]) Historical Provider HEALTH MAINTENANCE Final Result from Last 3 Months or Most Recently Relevant to Health Maintenance Insurance , [address] [place] [address] DENTAL - BCBS DENTAL Care Teams In Home Aide Relationship Specialty Start Date End Date Name, MD Ernst [address] [place] [phone] PCP - General Family Medicine 10/08/15
== END ==
LOC: HO.SL 19:30
PROVIDERS: PCP Internal Medicine Geriatric Medicine; Visit Provider Internal Medicine Geriatric Medicine
DX: Z13.89 Encounter for screening for other disorder (principal)

== ENCOUNTER 2024-12-26 07:35 | Outpatient (AMB) | payer OTHER, SELFPAY ==
--- OUTSIDE RECORDS SUMMARY | 2024-12-26 07:37 | XMS_ITS | Encounter Summary ---
Author Organization [employer] [facility] Address [address] [place] [address] 7 [place] [address] Care Team Providers Care Loss Prevention And Safety Manager Name Role Phone Name, Ernst COPE Primary Care Provider [phone] Encounter Details Date Type Department Care Team (Latest Contact Info) Description 10/13/2020 Abstract [facility] CONVERSIONS Dental, Provider, DDS Social History [...] Upcoming Encounters Date Type Department Care Team ( st Contact Info) Description 02/06/2025 8:00 AM EDT Office Visit [facility] ADULT DENTAL [address] [place] [address] Leonel, Jennifer [address] [place] [address] documented as of this encounter Visit Diagnoses Not on filedocumented in this encounter Care Teams Loss Prevention And Safety Manager Relationship Specialty Start Date End Date Name, MD Ernst [address] [place] [address] PCP - General Family Medicine 10/08/15 documented as of this encounter
--- OUTSIDE RECORDS SUMMARY | 2024-12-26 07:38 | XMS_ITS | Clinical Summary ---
Author Organization [address] [facility] Address [address] [place] [address] Phone Care Team Providers Care Teacher Aide Clerical Name Role Phone Physician, Pcp Unknown Primary [...] CAPSULE BY MOUTH EVERY DAY 10/13/2014 Active Hospital, Clinic, or Other Facility Administered Medication Ordered Dose Route Frequency Start Date End Date Status lidocaine (PF) (XYLOCAINE-MPF) 1 % injection 0.5 mLIndications:Planta r fasciitis .5 mL inj Once PRN Procedure 12/18/2024 12/18/2024 Ended triamcinolone acetonide (KENALOG-40) 40 mg/mL injection 40 mgIndications:Planta r fasciitis 40 mg IAtc Once PRN Procedure 12/18/2024 12/18/2024 Ended Active Problems Problem Noted Date Diagnosed Date [...] Encounters Date Type Department Care Team Description 12/18/2024 3:00 PM EDT Office Visit Orthopedic Surgery [place] [address] [phone] Len Kang DPDeonna Pain in left toe(s) (Primary Dx); Arthritis of both feet; Equinus contracture of left ankle; Plantar fasciitis 10/15/2024 1:30 PM EST Consult Orthopedic Surgery [facility] [address] [phone] Len Kang DPDeonna Pain in left toe(s) (Primary Dx); Arthritis [...] tubes - bilateral OTHER SURGICAL HISTORY PROCEDURE: [place] ESOPHAGOSCOPY FLEXIBLE TRANSORAL DIAGNOSTIC; COMMENT: GERD resolved after H.pylori treatment COLONOSCOPY 06/17/2010 PROCEDURE: [place] COLONOSCOPY STOMA DX INCLUDING COLLJ SPEC SPX [...] - - Weight 89.4 kg (197 lb) 12/18/2024 3:02 PM EDT Height 167.6 cm (5' 5.98 ) 12/18/2024 3:02 PM ED T Body Mass Index 31.81 12/18/2024 3:02 PM EDT Plan of Treatment Upcoming Encounters Date Type Department Care Team (Late st Contact Info) Description 03/03/2025 3:00 PM EDT Office Visit Orthopedic Surgery - [place] [address] [phone] Len Kang, JESUS [address] [address] Health Maintenance Due Date Last Done Comments Hepatitis A Vaccines (1 of 2 - Risk 2-dose series) 1983 Pneumococcal Vaccine: 50+ Years (1 of 2 - PCV) 1983 Pneumococcal Vaccine: Pediatrics (0 to 5 Years) and At-Risk Patients (6 to 64 Years) (1 of 2 - PCV) 1983 Zoster Vaccines (1 of 2) 2014 COVID-19 Vaccine ( season) 2024 RSV Immunization Adult Patients (1 - Risk 60-74 years 1-dose series) 2024 Colorectal Cancer Screening: Colonoscopy 07/30/2024 HIV Screening 07/30/2024 Hepatitis C Screening 07/30/2024 Lung Cancer Screening (Low Dose CT) 07/30/2024 Social Influencers of Health Screening 07/30/2024 Influenza Vaccine (Season Ended) 2025 06/22/2016, 06/11/2014, 07/04/2013, Additional history exists Depression Screening 10/03/2025 10/03/2024 Cholesterol Screening (Lipid Panel) 10/13/2027 10/12/2022, 09/04/2014 DTaP,Tdap,and Td Vaccines (3 - Td or [...] Procedure Name Priority Date/Time Associated Diagnosis Comments INJECTION TENDON OR LIGAMENT Routine 12/18/2024 3:00 PM EDT Plantar fasciitis LIPID PANEL Routine 09/04/2014 from Last 3 Months or Most Recently Relevant to Health Maintenance Results * Injection tendon or ligament (12/18/2024 3:00 PM EDT) Narrative Len Kang DPM - 12/18/2024 3:00 PM EDT Len Kang DPM ? 12/18/2024 ??3:42 PM Injection tendon or ligament Indications: pain Details: 25 G needle Medications: 0.5 mL lidocaine (PF) 1 %; 40 mg triamcinolone acetonide 40 mg/mL Informed Consent: ??Laterality: ??Right Len Kang DPM IN CLINIC/BEDSIDE ORDERABLE S Final Result * (ABNORMAL) Lipid panel (09/04/2014) LDL/HDL Ratio 7(A) 0 - 4 Triglycerides 387(A) 0 - 150 mg/dL Cholesterol 228(A) 0 - 200 mg/dL HDL 31(A) >=40 mg/dL LDL Cholesterol 120(A) 0 - 100 mg/dL Blood Venous blood specimen / Unknown Historical Provider LAB BLOOD ORDERABLES Juli vital Result from Last 3 Months or Most Recently Relevant to Health Maintenance Insurance [facility] MEDICAID ADVANTAGE [address] [place] [address] Care Teams Teacher Aide Clerical Relationship Specialty Start Date End Date Physician, Pcp Unknown PCP - General 07/30/24
--- OUTSIDE RECORDS SUMMARY | 2024-12-26 07:38 | XMS_ITS | Encounter Summary ---
Author Organization [employer] Address [address] [facility] 7t [place] [address] Care Team Providers Care University Demonstrator Name Role Phone Name, Ernst COPE Primary Care Provider [phone] Encounter Details Date Type Department Care Team (Late st Contact Info) Description 09/06/2023 Abstract [facility] MEDICINE [address] [place], [place] [phone] Name, MD Ernst [address] [place], [place] [phone] Social History Tobacco Use Types Packs/Day Years [...] Description 02/06/2025 8:00 AM EDT Office Visit [facility] ADULT DENTAL [address] [place] [address] Jennifer Castaneda [address] [place] [address] documented as of this encounter Visit Diagnoses Not on filedocumented in this encounter Additional Health Concerns Assessment Noted Time PHQ-9 Depression Total Score: 1 10/06/19 23 9:13 AM EST documented as of this encounter Care Teams University Demonstrator Relationship Specialty Start Date End Date Name, MD Ernst [address] [place] [address] PCP - General Family Medicine 10/08/15 documented as of this encounter
--- OUTSIDE RECORDS SUMMARY | 2024-12-26 07:38 | XMS_ITS | Encounter Summary ---
Author Organization [facility] Address [address] [place] [address] 7 [place] [address] Care Team Providers Care Lead Consultant Name Role Phone Name, Ernst COPE Primary Care Provider [phone] Encounter Details Date Type Department Care Team (Latest Contact Info) Description 04/24/2019 Abstract [facility] CONVERSIONS Dental, Provider, DDS Social History Tobacco [...] Description 02/06/2025 8:00 AM EDT Office Visit [facility]ULT [facility] [address] [place] [address] Leonel, Jennifer [address] [place] [address] documented as of this encounter Visit Diagnoses Not on filedocumented in this encounter Care Teams Lead Consultant Relationship Specialty Start Date End Date Name, MD Ernst [address] [place] [address] PCP - General Family Medicine 10/08/15 documented as of this encounter
--- OUTSIDE RECORDS SUMMARY | 2024-12-26 07:38 | XMS_ITS | Encounter Summary ---
Author Organization [facility] Address [address] [facility] 7 [place] [address] Care Team Providers Care Rehab Tech Name Role Phone Name, Ernst COPE Primary Care Provider [phone] Reason for Visit * Reason Onset Date Comments Pre Op 09/08/2023 Encounter Details Date Type Department Care Team ([facility] st Contact Info) Description 09/08/[address] [facility] [address] [place], [place] [phone] Name, MD Ernst [address] [place] [address] Pre Op Social History Tobacco Use Types [...] 09/08/2023 2:37 PM EST Return T/C to [facility] for below message pt. Was schedule for Pre -op apt. On Meghan verbally agreed and understood. Date of Surgery: 11/06/23 Surgical procedure being done: Green Light Laser Prostate incision Type of anesthesia: General Lab needed: if pcp sees necessary EKG: Yes Last surgeon note requested. Surgeon's name: [facility] name: [employer] Surgeon's office number: [phone] opt 3 Surgeon's office fax number: [phone] Contact name (person you spoke with): Meghan * Telephone Encounter - Ryan Del Cid - 09/08/2023 10:50 AM EST Date of Surgery: 11/06/23 Surgical procedure being done: Green Light Laser Prostate incision Type of anesthesia: General Lab needed: Whatever pcp sees necessary EKG: No Surgeon's name: [facility] name: [employer] Surgeon's office number: [phone] opt 3 Surgeon's office fax number: [phone] Contact name (person you spoke with): Meghan documented in this encounter Plan of Treatment Upcoming Encounters Date Type Department Care Team (Late st Contact Info) Description 02/06/2025 8:00 AM EDT Office Visit [facility]ULT [facility] [address] [place] [address] Leonel, Jennifer [address] [place] [address] documented as of this encounter Visit Diagnoses Not on filedocumented in this encounter Additional Health Concerns Assessment Noted Time PHQ-9 Depression Total Score: 1 10/06/19 9:13 AM EST documented as of this encounter Care Teams Rehab Tech Relationship Specialty Start Date End Date Name, MD Ernst [address] [place] [address] PCP - General Family Medicine 10/08/15 documented as of this encounter
--- OUTSIDE RECORDS SUMMARY | 2024-12-26 07:38 | XMS_ITS | Encounter Summary ---
Author Organization [employer] [facility] Address [address] [place] [address] 7 [place] [address] Care Team Providers Care Composition Molder Name Role Phone Name, Ernst COPE Primary Care Provider [phone] Encounter Details Date Type Department Care Team (Late st Contact Info) Description 01/23/2023 Abstract [facility] [address] [place], [place] [phone] Name, MD Ernst [address] [place] [address] Social History Tobacco Use Types Packs/Day Years [...] 8:00 AM EDT Office Visit [facility] ADULT DENTAL [address] [place] [address] Jennifer Castaneda [address] [place] [address] documented as of this encounter Procedures Procedure Name Priority Date/Time Associated Diagnosis Comments HM COLONOSCOPY Routine 05/25/2022 12:47 PM EDT documented in this encounter Results * Colonoscopy (05/25/2022 12:47 PM EDT) Colonoscopy Normal Normal Narrative Chiquis Tripp - 05/25/2022 12:47 PM EDT Recommended 5 year follow up ( [facility]) us Historical Provider HEALTH MAINTENANCE Final Result documented in this encounter Visit Diagnoses Not on filedocumented in this encounter Additional Health Concerns Assessment Noted Time PHQ-9 Depression Total Score: 1 10/06/19 23 9:13 AM EST documented as of this encounter Care Teams Composition Molder Relationship Specialty Start Date End Date Name, MD Ernst [address] [place] [address] PCP - General Family Medicine 10/08/15 documented as of this encounter
--- OUTSIDE RECORDS SUMMARY | 2024-12-26 07:38 | XMS_ITS | Encounter Summary ---
Author Organization [facility] Address [address] [place] [address] 7 [place] [address] Care Team Providers Care Ceramic Design Engineer Name Role Phone Name, Ernst COPE Primary Care Provider [phone] Encounter Details Date Type Department Care Team (Latest Contact Info) Description 04/07/2022 Abstract [facility] CONVERSIONS Dental, Provider, DDS Social History Tobacco [...] Description 02/06/2025 8:00 AM EDT Office Visit [facility] ADULT [facility] [address] [place] [address] Leonel, Jennifer [address] [place] [address] documented as of this encounter Visit Diagnoses Not on filedocumented in this encounter Care Teams Ceramic Design Engineer Relationship Specialty Start Date End Date Name, MD Ernst [address] [place] [address] PCP - General Family Medicine 10/08/15 documented as of this encounter
--- OUTSIDE RECORDS SUMMARY | 2024-12-26 07:38 | XMS_ITS | Clinical Summary ---
Author Organization [employer] [facility] Address [address] [place] [address] 7t [place] [address] Care Team Providers Care Natural History Collections Curator Name Role Phone Name, Ernst COPE Primary Care Provider [phone] Allergies Active Allergy Reactions Criticality Noted Date Comments Bee Pollen 11/06/2023 Other Reaction(s): Unknown Iodinated Contrast Media Hives High 12/17/2015 Other Reaction(s): PATIENT DEVELOPED HIVES AND REDNESS ON THROAT AND CHEST Iodine 09/14/2022 Lovastatin 07/04/2013 dyspepsia Medications nicotine polacrilex (Commit) 4 MG lozengeIndicatio ns:Tobacco dependence Dissolve 1 lozenge (4 mg) in the mouth every 1 (one) hour if needed for smoking cessation. 100 lozenge 3 Active Spacer/Aero-Hold ing Chambers (OptiChamber Yenny) miscIndications: Influenza-like symptoms 1 each every 4 (four) hours if needed (asthma). 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 30 g 2 4 Active gabapentin (Neurontin) 100 MG capsule Take 1 capsule (100 mg) by mouth at bedtime. 30 capsule 5 Active albuterol 108 (90 Base) MCG/ACT inhalerIndicatio ns:ANA (obstructive sleep apnea) Inhale 2 puffs every 4 (four) hours if needed for wheezing or shortness of breath. 18 g 1 5 10/03/19 26 Active melatonin 5 MG tablet On tab at bedtime 30 tablet 3 5 Active Active Problems Problem Noted Date Diagnosed [...] 06/22/2016 Prostatism 01/13/2016 Overview (10/06/2022): [place] [facility] [place] Polyp of colon 01/13/2016 Overview (10/06/2022): Follow [place] [facility]. Last colonoscopy 06/04. Had benign polyp [...] Encounters Date Type Department Care Team Description 12/13/2024 9:15 AM EDT Telemedicine [facility] [address] [place] [phone] Ernst Ramirez MD ANA (obstructive sleep apnea) (Primary Dx); Insomnia, unspecified type 12/13/2024 Travel 11/07/2024 3:00 PM EDT Office Visit [facility] [address] [place] [phone] Ta Doherty, MARLEN 10/31/2024 Travel 10/03/2024 11:30 AM EST Office Visit [facility] [address] [place] [phone] Ernst Ramirez MD Restless legs (Primary Dx); Paresthesia of both feet; ANA (obstructive sleep apnea) 10/03/2024 Travel from Last 3 Months Immunizations Immunization Administration Dates Next Due Influenza injectable quadriv [...] Description 02/06/2025 8:00 AM EDT Office Visit [facility] [address] [place] [address] Leonel, Jennifer [address] [place] [address] Health Maintenance Due Date Last Done Comments [...] 08/01/2024, 0 02/01/2024, 06/23/2023, Additional history exists Dental X-Ray: Bitewings 08/02/2025 08/01/20 24, 06/23/2023, [...] EST Paresthesia of both feet Restless legs PROPHYLAXIS - ADULT Routine 08/01/2024 9 :00 [...] Blood Count 6.3 4.8 - 10.8 X10*3/uL [facility] Red Blood Count 5.22 4.60 - 5.80 X10*6/uL [facility] Hemoglobin 16.0 14.0 - 18.0 g/dl [facility] Hematocrit 47.7 42.0 - 52.0 % [facility] Mean Corpuscular Volume 91.4 80.0 - 98.0 fL [facility] Mean Corpuscular Hemoglobin 30.7 27.0 - 33.0 pg [facility] Mean Corpuscular HGB Conc 33.5 31.0 - 36.0 g/dl [facility] Red Cell Distribution Width 13.8 11.0 - 16.0 % [facility] Platelet Count 231 160 - 400 X10*3/uL [facility] Mean Platelet Volume 10.4 9.4 - 12.4 fL [facility] Neutrophils Percent Auto 64.3 45 - 73 % [facility] Imm Gran Pct Auto 0.5(H) 0.0 - 0.4 % [facility] Lymphocytes Percent Auto 23.1 20 - 40 % [facility] Monocytes Percent Auto 7.9 2 - 11 % [facility] Eosinophils Percent Auto 3.3 0 - 4 % [facility] Basophils Percent Auto 0.9 0 - 2 % [facility] NRBC Pct Auto 0.0 0.0 - 0.2 /100WBC [facility] Neutrophils Absolute Auto 4.1 2.0 - 8.3 x10*3/uL [facility] Imm Gran Abs Auto 0.03 0.00 - 0.03 X10*3/uL [facility] Lymphocytes Absolute Auto 1.5 1.2 - 4.9 X10*3/uL [facility] Monocytes Absolute Auto 0.5 0.1 - 1.2 X10*3/uL [facility] Eosinophils Absolute Auto 0.2 0.0 - 0.4 X10*3/uL [facility] Basophils Absolute Auto 0.1 0.0 - 0.2 X10*3/uL [facility] NRBC Abs Auto 0.000 0.0 - 0.012 X10*3/uL [facility] Blood Venous blood specimen / Unknown 10/10/2024 6:15 AM EST 10/10/2024 6:18 AM EST us Ernst Name LAB BLOOD ORDERABLES Final Resul t [facility] [address] [place] [phone] * Iron And Total Iron Binding Capacity (10/10/2024 6:15 AM EST) Iron 135 45 - 160 mcg/dL [facility] Total Iron Binding Capacity 281 228 - 428 mcg/dL [facility] Percent Iron Saturation 48 15 - 50 % [facility] Unsaturated Iron Binding 146 ug/dL [facility] Blood Venous blood specimen / Unknown 10/10/2024 6:15 AM EST 10/10/2024 6:18 AM EST us Ernst Ramirez MD LAB BLOOD ORDERABLES Final Resul t Performing Organization Address [facility] Phone Number [facility] [address] [place] [phone] * Hemoglobin A1c (10/10/2024 6:15 AM EST) Hemoglobin A1c 5.4 <6.0 % [facility] Comment:Hemoglobin A1C Refer ence Range Adults: 4.8 - 6.0 % Non diabetic: < 6.0 % Goal: < 7.0 %Additional Action Suggested: > 8.0 %Note: Hemoglobin A1c results are invalid for patients with abnormal amounts of HbF. Blood transfusions may impact the HbA1c concentration in the patient sample. Estimated Average Glucose 108 mg/dL [facility] Comment:eAG = Estimated ave rage glucose which is %A1C expressed asaverage glucose, using the formula of the U5J-ChvoaegEnyasny Glucose study (ADAG), Diabetes Care, Vol.31,#8,Mar. 2007 Blood Venous blood specimen / Unknown 10/10/2024 6:15 AM EST 10/10/2024 6:18 AM EST us Ernst Ramirez MD LAB BLOOD ORDERABLES Final Resul t Performing Organization Address [facility] Co de Phone Number [facility] [address] [place] [phone] * (ABNORMAL) Basic Metabolic Panel (10/10/2024 6:15 AM EST) Sodium 139 135 - 145 mmol/L [facility] Potassium 4.3 3.3 - 5.1 mmol/L [facility] Chloride 108 96 - 108 mmol/L [facility] Carbon Dioxide 26 22 - 29 mmol/L [facility] Anion Gap 9(L) 12 - 20 [facility] Urea Nitrogen (BUN) 18(H) 9 - 16 mg/dL [facility] Creatinine, Serum 0.76 0.5 - 1.4 mg/dL [facility] Estimated Glomerular Filt Rate >60 [facility] Comment:Chronic Kidney Disea se: Estimated GFR < 60 mL/min/1.74o4Misukx Kidney Disease: Estimated GFR < 15 mL/min/1.73m2 Glucose 93 60 - 115 mg/dL [facility] Calcium 9.2 8.4 - 10.2 mg/dL [facility] Blood Venous blood specimen / Unknown 10/10/2024 6:15 AM EST 10/10/2024 6:18 AM EST us Ernst Ramirez MD LAB BLOOD ORDERABLES Final Resul t [facility] [address] [place] [phone] * (ABNORMAL) Lipid Panel, Standard (10/12/2022 8:17 AM EST) Cholesterol, Total 228(H) <200 mg/dL [facility] HDL Cholesterol 35(L) > OR = 40 mg/dL [facility] Triglycerides 211(H) <150 mg/dL [facility] Comment: If a non-fasting specimen was collected, consider repeat triglyceride testing on a fasting specimen if clinically indicated. Clover et al. J. of Clin. Lipidol. 2015;9:129-169. LDL Cholesterol 155(H) mg/dL (calc) [facility] Comment: Reference range: <100 Desirable range <100 mg/dL for primary prevention; ?? <70 mg/dL for patients with CHD or diabetic patients with > or = 2 CHD risk factors. LDL-C is now calculated using the Boris calculation, which is a validated novel method providing better accuracy than the Friedewald equation in the estimation of LDL-C. Bora LEIVA et al. SONY. 2013;310(19): 3086-8353 (http://education.Kadriana/faq/HBB846) Chol/HDLC Ratio 6.5(H) <5.0 (calc) [facility] Non-HDL Cholesterol 193(H) <130 mg/dL (calc) [facility] Comment: For patients with diabetes plus 1 major ASCVD risk factor, treating to a non-HDL-C goal of <100 mg/dL (LDL-C of <70 mg/dL) is considered a therapeutic option. Blood Venous blood specimen / Unknown 10/12/2022 8:17 AM EST 10/12/2022 8:18 AM EST Narrative [facility] - 10/13/2022 1:19 AM EST FASTING:YES FASTING: YES Ernstellis Ramirez MD LAB BLOOD ORDERABLES Final Resul t [facility] [address], [place] [phone] [facility] [address] [facility], ([address]) [place] [phone] * Colonoscopy (05/25/2022 12:47 PM EDT) Colonoscopy Normal Normal Narrative Chiquis Tripp - 05/25/2022 12:47 PM EDT Recommended 5 year follow up ( [facility] Historical Provider HEALTH MAINTENANCE Final Result from Last 3 Months or Most Recently Relevant to Health Maintenance Insurance [address] [place] [address] , [address] [place] [address] DENTAL - [employer] DENTAL Care Teams Natural History Collections Curator Relationship Specialty Start Date End Date Name, MD Ernst [address] [place] [phone] PCP - General Family Medicine 10/08/15
--- NOTE | 2024-12-26 07:41 | A.OFFVIS_ITS ---
Intake Visit Reasons: 3 month follow up Intake Note: Patient presents today for follow up on: frequency and interstitial cystitis Urology Medication: Fesoterodine, famotidine Antibiotic Allergy:NONE Blood Thinner:NONE PVR: 59ml's Soil Technologist Required: No Soil Technologist Services: Soil Technologist Present Soil Technologist Name: [id number] Steven Accompanied by: Self / Same As Patient Allergies Iodinated Contrast Media [IV CONTRAST] Allergy (Intermediate, Verified 12/26/24 08:02) Hives iopromide [From Ultravist] Allergy (Intermediate, Verified 12/26/24 08:02) PATIENT DEVELOPED HIVES AND REDNESS ON THROAT AND CHEST bee pollen [bee stings] Allergy (Verified 12/26/24 08:02) Unknown Medication List - Last Reconciled 12/26/24 [facility] albuterol sulfate 90 mcg/actuation 2 puffs inhalation Q4-6H PRN ciclopirox 0.77% 1 appl topical BID clobetasol 0.05% 1 appl topical BID diphenhydramine HCl 25 mg PO Q4-6H PRN epinephrine (EpiPen) 0.3 mg IM Q4H PRN famotidine 40 mg PO BEDTIME 90 days fesoterodine ER 8 mg PO DAILY 30 days pravastatin 20 mg PO QAM triamcinolone acetonide 0.1% appl topical BID PRN HPI Comments Details: Arsen is a 59-year-old Samoan-speaking male patient of Dr. Ramirez. He has a past medical history of pulmonary emphysema, tobacco dependence, vitamin-D deficiency, sleep apnea, and hypercholesteremia. He presents to the office today for follow-up of his ongoing lower urinary tract symptoms, bladder instability, and interstitial cystitis. Of note, patient was seen approximately extremely [address] Gayle at which time he was started on Toviaz. In discussion with the patient today he reports no improvement in urinary urgency and or episodes of nocturia he had been experiencing. He has previously trialed oxybutynin and famotidine with no improvement. We discussed potential causes of lower urinary tract symptoms patient is experiencing as well as further treatment options and risks and benefits of these treatment options. Patient with a previous GreenLight laser procedure with Dr. Gayle 11/04 at which time bladder a procedure. To have some degree of interstitial cystitis. We discussed importance of avoiding bladder triggers and irritants. We also discussed importance of limiting/quitting nicotine dependence for improvement in lower urinary tract symptoms as well as overall health and well-being. In office urinalysis results reviewed with the patient today. PVR 59 mL. When asked he denies dysuria, foul smelling urine, flank pain, fever, and or chills. PSAs are as follows: 09/05 1.2, 09/05 1.0 PREVIOUS OFFICE NOTE: Interstitial cystitis Noted at time of prostate laser Lower urinary tract symptoms Urinary frequency Drinks 6-8 cups of coffee daily Current therapy terazosin 10 mg Cystoscopy 11/03 tight prostate - laser of prostate 11/04 Concomitant obstructive sleep apnea mild PFSH Medical History (Reviewed 12/26/24 @ 10:[address] [facility] [place]) Rash Tinea pedis Simple renal cyst Chronic periodontitis Dental calculus Polyp of colon Prostatism Pulmonary emphysema Tobacco dependence Vitamin D deficiency Sleep apnea Elevated cholesterol Lung mass Chronic abdominal pain Infected epithelial inclusion cyst Epidermal cyst of neck Abscess of groin, left Nicotine dependence, cigarettes, uncomplicated Surgical History History of removal of cyst (~09/13/23) H/O excision of mass History of esophagogastroduodenoscopy (EGD) History of epidermal inclusion cyst excision (~07/15/21) History of removal of cyst H/O excision of mass (11/14/18) H/O colonoscopy (2015) History of umbilical hernia repair (03/19/19) Family History Father Colon cancer Skin cancer Mother Skin cancer Brother Stomach cancer, Onset Age: 57 Social History Alcohol intake: former Patient Tobacco Use Status: Current everyday Tobacco user Tobacco use type: Cigarette Cigarette Packs Per Day: 0.5 Cigarettes Per Day: 10 Years Smoked: 41 (onset 14) Review of Systems Eyes Reports no additional complaints ENT Reports no additional complaints Card Reports as per HPI Resp Reports as per HPI GI Reports no additional complaints Reports as per HPI Musc Reports no additional complaints Neuro Reports no additional complaints Psych Reports no additional complaints Endo Reports no additional complaints Physical Exam Const General: cooperative, comfortable, no acute distress, well developed, alert and awake Orientation/consciousness: patient oriented x3 Limitations: language barrier HEENT Head: Yes normal to inspection, Yes normocephalic and Yes atraumatic Ears: hearing grossly normal bilaterally Eyes General: appearance normal, both eyes and all related structures Neck Neck: Yes normal visual inspection and Yes trachea midline Chest Chest palpation & inspection: normal inspection of the chest Resp Effort & Inspection: normal respiratory effort and able to speak in complete sentences Cardio Rate: regular rate GI Inspection: Yes normal to inspection General: Yes no CVA tenderness Back/Spine/Pelvis Back: no CVA tenderness Skin General skin exam: no rashes or lesions noted Neuro General: patient oriented x3 Extrem General: Yes normal to inspection Psych Appearance: grossly normal and well kempt Mental Status: mental status grossly normal Speech and movement: Normal speech and movement present and Clear speech present Affect: normal affect Attitude: cooperative Thought process: Normal thought process present Thought content: Normal thought content present Insight: Fair insight present (Psych) Judgement: Fair judgement present (Psych) Office Procedures Post Void Residual Post Residual Void Post Void Residual (PVR): 59 [id number] Void Residual by ultrasound Results AMB Urinalysis, Automated UA Leukoctes 0 Andrés/uL Last Edit by orderTopia on 12/26/24 07:54 UA Nitrite Last Edit by orderTopia on 12/26/24 07:54 UA Urobilinogen 0.2 mg/dL Last Edit by orderTopia on 12/26/24 07:54 UA Protein 0 mg/dL Last Edit by [employer]ia on 12/26/24 07:54 UA pH 6.0 Last Edit by orderTopia on 12/26/24 07:54 UA Blood 80 Dante/uL Last Edit by orderTopia on 12/26/24 07:54 UA Specific [place] 1.015 Last Edit by orderTopia on 12/26/24 07:54 UA Ketone Last Edit by Frank Flowers on 12/26/24 07:54 UA Bilirubin 0 mg/dL Last Edit by Frank Flowers on 12/26/24 07:54 UA Glucose 0 mg/dL Last Edit by Frank Flowers on 12/26/24 07:54 Results Reviewed Results Reviewed: Laboratory Last Values Urine pH (Auto) 6.0 12/26/24 07:52 Specific [place] (Auto) 1.015 12/26/24 07:52 Urine Protein (Auto) 0 mg/dL 12/26/24 07:52 Glucose (UA)(Auto) 0 mg/dL 12/26/24 07:52 Urine Blood (Auto) 80 Dante/uL 12/26/24 07:52 Urine Bilirubin (Auto) 0 mg/dL 12/26/24 07:52 Urine Urobilinogen (Auto) 0.2 mg/dL 12/26/24 07:52 Leukocyte Esterase (Auto) 0 Andrés/uL 12/26/24 07:52 Assessment & Plan Assessment & Plan (1) Chronic interstitial cystitis: Code(s): N30.10 - Interstitial cystitis (chronic) without hematuria Category: Medical (2) Microscopic hematuria: Code(s): R31.29 - Other microscopic hematuria Category: Medical (3) Urinary urgency: Code(s): R39.15 - Urgency of urination Category: Medical (4) Urinary frequency: Code(s): R35.0 - Frequency of micturition Category: Medical (5) BPH (benign prostatic hyperplasia): Code(s): N40.0 - Benign prostatic hyperplasia without lower urinary tract symptoms Category: Medical Plan In office urinalysis results reviewed with the patient today; as noted above; will send for urine cytology. PVR 59 mL Stop Toviaz. Start Myrbetriq as discussed and prescribed. We discussed bladder triggers/irritants. Will obtain PSA for further assessment evaluation. ERIKA offered however deferred. Discussed, educated, and stressed the importance of adequate hydration relation to lower urinary tract symptoms as well as overall health and well-being. We discussed the importance of limiting/quitting nicotine dependence for overall health and well-being. Follow-up in 1-3 months with PSA and PVR; or sooner with any issues, concerns, and or questions. Orders: Orders AMB Urinalysis Automated Today Z13.9 - Encounter for screening, unspecified AMB Post Void Residual by ultrasound Today R39.15 - Urgency of urination Urine Cytology Today R31.29 - Other microscopic hematuria Prostate Specific Antigen Today N40.0 - Benign prostatic hyperplasia without lower urinary tract symptoms Medications: New mirabegron ER (Myrbetriq) 25 mg PO DAILY 30 days 30 tabs 3RF N30.10 - Interstitial cystitis (chronic) without hematuria, N32.81 - Overactive bladder, R35.1 - Nocturia, R39.15 - Urgency of urination Discontinued fesoterodine ER Discontinued Reason: Doctor's Order 8 mg PO DAILY 30 days 30 tabs 1RF N30.10 - Interstitial cystitis (chronic) without hematuria, N40.0 - Benign prostatic hyperplasia without lower urinary tract symptoms Patient Instructions: The patient had an opportunity to ask questions regarding the treatment plan. All questions were answered. Physical exam, labs, and imaging were discussed and reviewed in detail. As well as risks, benefits, and discussion of treatment choices. No major barriers to understanding were identified. The patient expressed understanding and agreement with the above treatment plan. The patient was made aware they should contact our office by phone for worsening of their current condition, the appearance of new symptoms, or with any questions or concerns. Compliance is encouraged with any medications and follow up testing that is ordered. It is a privilege to be allowed the opportunity to participate in? your urological care.? Again, if you have any questions or concerns If you have any questions or concerns please do not hesitate to contact me. The office is [phone]. This note is constructed using voice recognition software. While every effort has been made to ensure accuracy emergency service worker errors may have been included. Yours sincerely, MISSY Luu Coding Level of Care Code Est Pt Level 4 (32517) Diagnoses Chronic interstitial cystitis N30.10 Microscopic hematuria R31.29 Urinary urgency R39.15 Urinary frequency R35.0 BPH (benign prostatic hyperplasia) N40.0 CPT Codes Post Residual Void - PVR CPT Code: 02896-[id number] Void Residual by ultrasound ([id number])
== END 2024-12-26 08:12 | disposition home or self-care (01) ==
LOC: HO.HUSH 07:36
PROVIDERS: PCP Internal Medicine Geriatric Medicine; Visit Provider Nurse Practitioner Family
DX: N30.10 Interstitial cystitis (chronic) without hematuria (principal); R31.29 Other microscopic hematuria; R39.15 Urgency of urination; R35.0 Frequency of micturition; N40.0 Benign prostatic hyperplasia without lower urinary tract symptoms; Z13.9 Encounter for screening, unspecified
CPT/HCPCS: 99214

== ENCOUNTER 2024-12-26 07:35 | Outpatient (REF) | payer OTHER, SELFPAY ==
[2024-12-26 17:01] LABS: Urine Cytology See Pathology rpt
== END 2024-12-26 07:36 | disposition home or self-care (01) ==
LOC: HO.LNP 07:35
PROVIDERS: PCP Internal Medicine Geriatric Medicine; Visit Provider Nurse Practitioner Family
DX: R31.29 Other microscopic hematuria (principal); N40.1 Benign prostatic hyperplasia with lower urinary tract symptoms; R39.15 Urgency of urination; R35.0 Frequency of micturition; N30.10 Interstitial cystitis (chronic) without hematuria; Z79.899 Other long term (current) drug therapy
CPT/HCPCS: 51798; 81003; 88112

== ENCOUNTER 2025-01-02 09:38 | Outpatient (REF) | payer OTHER, SELFPAY ==
--- NOTE | ~2025-01-02 | CT_ITS ---
CLINICAL HISTORY: F17.210 - Nicotine dependence, cigarettes, uncomplicated CT lung cancer screening (LDCT) Comparison: CT/IA/SR - CT LUNG SCREENING - 12/28/23 15:[address]/IA/SR - CT LUNG SCREENING - 03/11/22 15:45 EDT Technique: Axial CT images of the chest using low-dose technique. Referring provider counseled the patient on shared decision-making for LDCT screening. Additional counseling was provided on smoking cessation. Effective radiation dose total: DLP 58.5 mGycm, CTDIvol 1.6 mGy. Findings: Lung: Mild emphysema. Stable in size of multiple pulmonary nodules: 3 mm in the right upper lobe series 4, image 38; 3 mm para fissural nodule of the right middle lobe image 60; 3 mm in the right middle lobe image 85; 5 mm para fissural nodule of the right lower lobe image 71. Coronary artery calcifications: None Limited upper abdomen: Right adrenal adenoma Other: None Impression: LungRADS 2 - Benign Appearance: Continue annual screening with low dose Chest CT in 12 months. ##L2## Category 1: Normal; continue annual screening Category 2: Benign appearance or behavior, continue annual screening Category 3: Probably benign, [address] recommended Category 4A: Suspicious, [address] recommended; may consider PET/CT Category 4B: Suspicious, Additional diagnostics and/or tissue sampling recommended Category 4X: Suspicious, Additional diagnostics and/or tissue sampling recommended Category 0: Recalls (incomplete screen due to Incomplete coverage, Noise, Respiratory motion, Expiration, Obscured by acute abnormality) This document has been electronically signed by: Raheel Thompson MD on 01/02/2025 17:07:39
--- OUTSIDE RECORDS SUMMARY | 2025-01-02 09:54 | XMS_ITS | Encounter Summary ---
Author Organization [employer] Address [address] [place] [address] [address] [place] [address] Care Team Providers Care Product Support Engineer Name Role Phone Name, Ernst COPE Primary Care Provider [phone] Encounter Details Date Type Department Care Team (Late st Contact Info) Description 01/23/2023 Abstract [facility] [address] [place] [address] Name, MD Ernst [address] [place] [address] Social History Tobacco Use Types Packs/Day Years [...] Description 02/06/2025 8:00 AM EDT Office Visit [facility] [address] [place] [address] Jennifer Castaneda [address] [place] [address] documented as of this encounter Procedures Procedure Name Priority Date/Time Associated Diagnosis Comments HM COLONOSCOPY Routine 05/25/2022 12:47 PM EDT documented in this encounter Results * Colonoscopy (05/25/2022 12:47 PM EDT) Colonoscopy Normal Normal Narrative Chiquis Tripp - 05/25/2022 12:47 PM EDT [place] 5 [place] [facility] [place] Historical Provider HEALTH MAINTENANCE Final Result documented in this encounter Visit Diagnoses Not on filedocumented in this encounter Additional Health Concerns Assessment Noted Time PHQ-9 Depression Total Score: 1 10/06/19 23 9:13 AM EST documented as of this encounter Care Teams Product Support Engineer Relationship Specialty Start Date End Date Name, MD Ernst [address] [place] [address] PCP - General Family Medicine 10/08/15 documented as of this encounter
--- OUTSIDE RECORDS SUMMARY | 2025-01-02 09:54 | XMS_ITS | Encounter Summary ---
Author Organization [employer] Address [address] [place] [address] [address] [place] [address] Care Team Providers Care Bar Machine Operator Production Name Role Phone Name, Ernst COPE Primary Care Provider [phone] Reason for Visit * Reason Onset Date Comments Pre Op 09/08/2023 Encounter Details Date Type Department Care Team ([facility] st Contact Info) Description 09/08/2023 Telephone [facility] [address] [place], [place] [id number] Name, MD Ernst [address] [place] [address] Pre Op Social History Tobacco Use Types [...] 09/08/2023 2:37 PM EST Return T/C to [facility] for below message pt. Was schedule for Pre -op apt. On Meghan verbally agreed and understood. Date of Surgery: 11/06/23 Surgical procedure being done: Green Light Laser Prostate incision Type of anesthesia: General Lab needed: if pcp sees necessary EKG: Yes Last surgeon note requested. Surgeon's name: [facility] name: [facility] Surgeon's office number: [phone] opt 3 Surgeon's office fax number: [phone] Contact name (person you spoke with): Meghan * Telephone Encounter - Ryan Del Cid - 09/08/2023 10:50 AM EST Date of Surgery: 11/06/23 Surgical procedure being done: Green Light Laser Prostate incision Type of anesthesia: General Lab needed: Whatever pcp sees necessary EKG: No Surgeon's name: [facility] name: [facility] Surgeon's office number: [phone] opt 3 Surgeon's office fax number: [phone] Contact name (person you spoke with): Meghan documented in this encounter Plan of Treatment Upcoming Encounters Date Type Department Care Team (Late st Contact Info) Description 02/06/2025 8:00 AM EDT Office Visit [facility] [address] [place] [address] Freedom Castanedaaris [address] [place] [address] documented as of this encounter Visit Diagnoses Not on filedocumented in this encounter Additional Health Concerns Assessment Noted Time PHQ-9 Depression Total Score: 1 10/06/19 23 9:13 AM EST documented as of this encounter Care Teams Bar Machine Operator Production Relationship Specialty Start Date End Date Name, MD Ernst [address] [place] [address] PCP - General Family Medicine 10/08/15 documented as of this encounter
--- OUTSIDE RECORDS SUMMARY | 2025-01-02 09:54 | XMS_ITS | Encounter Summary ---
Author Organization [facility] Address [address] [place] [address] [address] [place] [address] Care Team Providers Care Multimedia Project Manager Name Role Phone Name, Ernst COPE Primary Care Provider [phone] Encounter Details Date Type Department Care Team (Latest Contact Info) Description 04/07/2022 Abstract [facility] Dental, Provider, DDS Social History [...] 02/06/2025 8:00 AM EDT Office Visit [facility] [address] [place] [address] Leonel, Jennifer [address] [place] [address] documented as of this encounter Visit Diagnoses Not on filedocumented in this encounter Care Teams Multimedia Project Manager Relationship Specialty Start Date End Date Name, MD Ernst [address] [place] [address] PCP - General Family Medicine 10/08/15 documented as of this encounter
--- OUTSIDE RECORDS SUMMARY | 2025-01-02 09:54 | XMS_ITS | Clinical Summary ---
Author Organization [facility] Address [address] [place] [address] Phone Care Team Providers Care Casino Shift Manager Name Role Phone Physician, Pcp Unknown Primary [...] 3:00 PM EDT Office Visit Orthopedic Surgery [place] [address] [phone] Len Kang DPDeonna Pain in left toe(s) (Primary Dx); Arthritis of both feet; Equinus contracture of left ankle; Plantar fasciitis 10/15/2024 1:30 PM EST Consult Orthopedic Surgery [facility] [address] [phone] Len Kang DPDeonna Pain in left toe(s) [...] tubes - bilateral OTHER SURGICAL HISTORY PROCEDURE: ND ESOPHAGOSCOPY FLEXIBLE TRANSORAL DIAGNOSTIC; COMMENT: GERD resolved after H.pylori treatment COLONOSCOPY 06/17/2010 PROCEDURE: ND COLONOSCOPY STOMA DX INCLUDING COLLJ SPEC SPX [...] PM EDT Office Visit Orthopedic Surgery - [place] [address] [phone] Len Kang, JESUS [address] [address] Health Maintenance Due Date Last Done Comments [...] Relevant to Health Maintenance Insurance [facility] MEDICAID ADVANTAGE [address] [place] [address] Care Teams Casino Shift Manager Relationship Specialty Start Date End Date Physician, Pcp Unknown PCP - General 07/30/24
--- OUTSIDE RECORDS SUMMARY | 2025-01-02 09:54 | XMS_ITS | Clinical Summary ---
Author Organization [employer] Address [address] [place] [address] [address] [place] [address] Care Team Providers Care Validation Technician Name Role Phone Name, Ernst COPE Primary Care Provider [phone] Allergies Active Allergy Reactions Criticality Noted Date [...] 06/22/2016 Prostatism 01/13/2016 Overview (10/06/2022): Follows at [facility] urology Polyp of colon 01/13/2016 Overview (10/06/2022): Follow at [facility] GI. Last colonoscopy 06/04. Had benign polyp [...] Team Description 12/13/2024 9:15 AM EDT Telemedicine [facility] MED[facility] [address] [place] [address] Name, MD Ernst ANA (obstructive sleep apnea) (Primary Dx); Insomnia, unspecified type 12/13/2024 Travel 11/07/2024 3:00 PM EDT Office Visit [facility] ADULT DENTAL [address] [place] [address] Ta Doherty DMD 10/31/2024 Travel from Last 3 Months Immunizations Immunization [...] Description 02/06/2025 8:00 AM EDT Office Visit [facility] ADULT DENTAL [address] [place] [address] Leonel, Jennifer [address] [place] [address] Health Maintenance Due Date Last Done Comments CT Colonography 1964 FIT DNA/Cologuard 1964 FIT 1965 FOBT 1965 HIV Screening 1965 Sigmoidoscopy 1965 Alcohol/Substance Use Screening 1976 Hepatitis C Screening 1982 Pneumococcal Vaccine: 50+ Years (1 of 2 - PCV) 1983 Zoster Vaccines (1 of 2) 2014 COVID-19 Vaccine ( - season) 2024 Influenza Vaccine (#1) 2024 , 06/11/2014, 06/11/2014, Additional history exists RSV Patients and Patients Aged 60 years or older (1 - Risk 60-74 years 1-dose series) 2024 Dental Oral Exam 01/31/2025 08/01/2024, , 04/21/2022 Dental Prophylaxis 01/31/2025 08/01/2024, 0 02/01/2024, 06/23/2023, Additional history exists Dental X-Ray: Bitewings 08/02/2025 08/01/20 24, 06/23/2023, 04/07/2022 Depression Screening 10/03/2025 10/03/2024, 10/03/19 Disability Screening 10/03/2025 10/03/2024 SDOH Screening 10/03/2025 10/03/2024 Tobacco Screening 11/07/2025 [...] Procedure Name Priority Date/Time Associated Diagnosis Comments CYTOPATH-CELL ENHANCED Routine 12/26/2024 5:00 PM EDT 10 F(V) RESIN-BASED COMPOSITE - 1 SURF, [...] Recently Relevant to Health Maintenance Results * Cytopath-cell enhanced (12/26/2024 5:00 PM EDT) 12/26/2024 5:00 PM EDT 12/27/2024 1:38 PM EDT [facility] - 12/30/2024 5:05 PM EDT ----- ------- Name: Magdy Bronson ? Age/Sex: 59/M ? : 1965 Unit#: [id number] ?? Attend Dr: Venessa Butts TRACTOR MECHANIC-BC ?Re12/26/24 ?Status: DEP REF ? Location: HO.LNP ?Disch: ? ----- ------- SPEC : [id number] ? RECD: 12/27/24 ? STATUS: ??SOUT ? REQ NUM: [id number] ? REED: 12/26/24-1699 ? SUBM DR: Venessa Butts TRACTOR MECHANIC-BC ? ENTERED: ??12/30/24 ?SP TYPE: Cytology ? OTHR DR: Name,Ernst COPE ? ORDERED: ??Cyto-enhanced ? Diagnosis ?? Urine: ?? -Negative for high-grade urothelial carcinoma. ?? -Clusters of urothelial cells (see comment). ? Comment: ??Examination of a monolayer preparation slide shows scattered benign urothelial ?? cells with focal reactive changes, scattered benign squamous cells, debris, scattered ?? inflammatory cells, and occasional red blood cells. ??Rare urothelial cell clusters are ?? also seen. ??These clusters can be seen in infection, instrumentation, stones, other ?? inflammatory processes, or low-grade neoplasia. ?Clinical History Other microscopic hematuria ? Material Received ?? Urine ? Gross Description Received is 45 cc of clear yellow fluid from which a ThinPrep slide is prepared. Copies To: ?? Venessa Butts TRACTOR MECHANIC-BC ?? [facility] Services ?? [address] ?? [place] [address] ?? [phone] ?? [email or web address] ?? Name,Ernst COPE ?? [address] ?? [place] [address] ?? [phone] ----- ------- Signed (signature on file) Monica Lynn 12/30/241703 ? ----- ------- ? END OF REPORT ? us Generic External Data Provider LAB CYTOLOGY MILAGROS CISNEROS Final Result [facility] [address] [place] [phone] * (ABNORMAL) CBC auto differential (10/10/2024 6:15 AM EST) White Blood Count 6.3 4.8 - 10.8 X10*3/uL [facility] Red Blood Count 5.22 4.60 - 5.80 X10*6/uL [facility] Hemoglobin 16.0 14.0 - 18.0 g/dl [facility] Hematocrit 47.7 42.0 - 52.0 % [facility] Mean Corpuscular Volume 91.4 80.0 - 98.0 fL [facility] Mean Corpuscular Hemoglobin 30.7 27.0 - 33.0 pg [facility] Mean Corpuscular HGB Conc 33.5 31.0 - 36.0 g/dl [facility] Red Cell Distribution Width 13.8 11.0 - 16.0 % [facility] Platelet Count 231 160 - 400 X10*3/uL [facility] Mean Platelet Volume 10.4 9.4 - 12.4 fL [facility] Neutrophils Percent Auto 64.3 45 - 73 % [facility] Imm Gran Pct Auto 0.5(H) 0.0 - 0.4 % [facility] Lymphocytes Percent Auto 23.1 20 - 40 % [facility] Monocytes Percent Auto 7.9 2 - 11 % [facility] Eosinophils Percent Auto 3.3 0 - 4 % [facility] Basophils Percent Auto 0.9 0 - 2 % [facility] NRBC Pct Auto 0.0 0.0 - 0.2 /100WBC [facility] Neutrophils Absolute Auto 4.1 2.0 - 8.3 x10*3/uL [facility] Imm Gran Abs Auto 0.03 0.00 - 0.03 X10*3/uL [facility] Lymphocytes Absolute Auto 1.5 1.2 - 4.9 X10*3/uL [facility] Monocytes Absolute Auto 0.5 0.1 - 1.2 X10*3/uL [facility] Eosinophils Absolute Auto 0.2 0.0 - 0.4 X10*3/uL [facility] Basophils Absolute Auto 0.1 0.0 - 0.2 X10*3/uL [facility] NRBC Abs Auto 0.000 0.0 - 0.012 X10*3/uL [facility] Blood Venous blood specimen / Unknown 10/10/2024 6:15 AM EST 10/10/2024 6:18 AM EST us Ernst Ramirez MD LAB BLOOD ORDERABLES Final Resul t Performing Organization Address [facility] de Phone Number [facility] [address] [place] [phone] * Iron And Total Iron Binding Capacity (10/10/2024 6:15 AM EST) Iron 135 45 - 160 mcg/dL [facility] Total Iron Binding Capacity 281 228 - 428 mcg/dL [facility] Percent Iron Saturation 48 15 - 50 % [facility] Unsaturated Iron Binding 146 ug/dL [facility] Blood Venous blood specimen / Unknown 10/10/2024 6:15 AM EST 10/10/2024 6:18 AM EST us Ernst Ramirez MD LAB BLOOD ORDERABLES Final Resul t Performing Organization Address [facility] de Phone Number [facility] [address] [place] [phone] * Hemoglobin A1c (10/10/2024 6:15 AM EST) Hemoglobin A1c 5.4 <6.0 % [facility] Comment:Hemoglobin A1C Refer ence Range Adults: 4.8 - 6.0 % Non diabetic: < 6.0 % Goal: < 7.0 %Additional Action Suggested: > 8.0 %Note: Hemoglobin A1c results are invalid for patients with abnormal amounts of HbF. Blood transfusions may impact the HbA1c concentration in the patient sample. Estimated Average Glucose 108 mg/dL [facility] Comment:eAG = Estimated ave rage glucose which is %A1C expressed asaverage glucose, using the formula of the [id number]-ZszhuwhPyyhytj Glucose study (ADAG), Diabetes Care, Vol.31,#8,Mar. 2007 Blood Venous blood specimen / Unknown 10/10/2024 6:15 AM EST 10/10/2024 6:18 AM EST us Ernst Ramirez MD LAB BLOOD ORDERABLES Final Resul t Performing Organization Address [facility] Co de Phone Number [facility] [address] [place] [address] [phone] * (ABNORMAL) Basic Metabolic Panel (10/10/2024 6:15 AM EST) Sodium 139 135 - 145 mmol/L [facility] Potassium 4.3 3.3 - 5.1 mmol/L [facility] Chloride 108 96 - 108 mmol/L [facility] Carbon Dioxide 26 22 - 29 mmol/L [facility] Anion Gap 9(L) 12 - 20 [facility] Urea Nitrogen (BUN) 18(H) 9 - 16 mg/dL [facility] Creatinine, Serum 0.76 0.5 - 1.4 mg/dL [facility] Estimated Glomerular Filt Rate >60 [facility] Comment:Chronic Kidney Disea se: Estimated GFR < 60 mL/min/1.32x5Ntcojm Kidney Disease: Estimated GFR < 15 mL/min/1.73m2 Glucose 93 60 - 115 mg/dL [facility] Calcium 9.2 8.4 - 10.2 mg/dL [facility] Blood Venous blood specimen / Unknown 10/10/2024 6:15 AM EST 10/10/2024 6:18 AM EST us Ernst Ramirez MD LAB BLOOD ORDERABLES Final Resul t Performing Organization Address [facility] Co de Phone Number [facility] [address] [place] [address] [phone] * (ABNORMAL) Lipid Panel, Standard (10/12/2022 8:17 AM EST) Cholesterol, Total 228(H) <200 mg/dL [facility] HDL Cholesterol 35(L) > OR = 40 mg/dL [facility] Triglycerides 211(H) <150 mg/dL [facility] Comment: If a non-fasting specimen was collected, consider repeat triglyceride testing on a fasting specimen if clinically indicated. Clover et al. J. of Clin. Lipidol. 2015;9:129-169. LDL Cholesterol 155(H) mg/dL (calc) [facility] Comment: Reference range: <100 Desirable range <100 mg/dL for primary prevention; ?? <70 mg/dL for patients with CHD or diabetic patients with > or = 2 CHD risk factors. LDL-C is now calculated using the Bora-Tasneem calculation, which is a validated novel method providing better accuracy than the Friedewald equation in the estimation of LDL-C. Bora LEIVA et al. SONY. 2013;310(19): 1541-4358 (http://education.Machine Safety Manangement/faq/VRM628) Chol/HDLC Ratio 6.5(H) <5.0 (calc) [facility] Non-HDL Cholesterol 193(H) <130 mg/dL (calc) [facility] Comment: For patients with diabetes plus 1 major ASCVD risk factor, treating to a non-HDL-C goal of <100 mg/dL (LDL-C of <70 mg/dL) is considered a therapeutic option. Blood Venous blood specimen / Unknown 10/12/2022 8:17 AM EST 10/12/2022 8:18 AM EST Narrative [facility] - 10/13/2022 1:19 AM EST FASTING:YES FASTING: YES us Ernst Ramirez MD LAB BLOOD ORDERABLES Final Resul t [facility] [address] [facility] [place] [address] [facility] [address] [facility], ([address]) [place] [address] * Hm Colonoscopy (05/25/2022 12:47 PM EDT) Colonoscopy Normal Normal Narrative Chiquis Tripp - 05/25/2022 12:47 PM EDT Recommended 5 year follow up ( [facility]) us Historical Provider HEALTH MAINTENANCE Final Result from Last 3 Months or Most Recently Relevant to Health Maintenance Insurance [facility] , [address] [place] [address] DENTAL - [facility] Care Teams Validation Technician Relationship Specialty Start Date End Date Name, MD Ernst [address] [place] [phone] PCP - General Family Medicine 10/08/15
--- OUTSIDE RECORDS SUMMARY | 2025-01-02 09:54 | XMS_ITS | Encounter Summary ---
Author Organization [facility] Address [address] [place] [address] [address] [place] [address] Care Team Providers Care Contract Administration Coordinator Name Role Phone Name, Ernst COPE Primary Care Provider [phone] Encounter Details Date Type Department Care Team (Latest Contact Info) Description 04/24/2019 Abstract [facility] Dental, Provider, DDS Social History [...] Description 02/06/2025 8:00 AM EDT Office Visit [facility] ADULT [facility] [address] [place] [address] Leonel, Jennifer [address] [place] [address] documented as of this encounter Visit Diagnoses Not on filedocumented in this encounter Care Teams Contract Administration Coordinator Relationship Specialty Start Date End Date Name, MD Ernst [address] [place] [address] PCP - General Family Medicine 10/08/15 documented as of this encounter
--- OUTSIDE RECORDS SUMMARY | 2025-01-02 09:54 | XMS_ITS | Encounter Summary ---
Author Organization [employer] Address [address] [facility] [address] [place] [address] Care Team Providers Care Flexo Press Operator Name Role Phone Name, Ernst COPE Primary Care Provider [phone] Encounter Details Date Type Department Care Team (Late st Contact Info) Description 09/06/2023 Abstract [facility] [address] [place], [place] [phone] Name, MD Ernst [address] [place] [address] Social History Tobacco Use Types Packs/Day Years [...] Description 02/06/2025 8:00 AM EDT Office Visit [facility] ADULT DENTAL [address] [place] [address] Jennifer Castaneda [address] [place] [address] documented as of this encounter Visit Diagnoses Not on filedocumented in this encounter Additional Health Concerns Assessment Noted Time PHQ-9 Depression Total Score: 1 10/06/19 23 9:13 AM EST documented as of this encounter Care Teams Flexo Press Operator Relationship Specialty Start Date End Date Name, MD Ernst [address] [place] [address] PCP - General Family Medicine 10/08/15 documented as of this encounter
--- OUTSIDE RECORDS SUMMARY | 2025-01-02 09:54 | XMS_ITS | Encounter Summary ---
Author Organization [facility] Address [address] [place] [address] [address] [place] [address] Care Team Providers Care Record Cutter Name Role Phone Name, Ernst COPE Primary Care Provider [phone] Encounter Details Date Type Department Care Team (Latest Contact Info) Description 10/13/2020 Abstract [facility] CONVERSION[facility] Dental, Provider, DDS Social History Tobacco [...] Description 02/06/2025 8:00 AM EDT Office Visit [facility] ADULT D[facility] [address] [place] [address] Leonel, Jennifer [address] [place] [address] documented as of this encounter Visit Diagnoses Not on filedocumented in this encounter Care Teams Record Cutter Relationship Specialty Start Date End Date Name, MD Ernst [address] [place] [address] PCP - General Family Medicine 10/08/15 documented as of this encounter
== END 2025-01-02 09:39 | disposition home or self-care (01) ==
LOC: HO.CT 09:38
PROVIDERS: PCP Internal Medicine Geriatric Medicine; Visit Provider Physician Assistant Medical
DX: Z12.2 Encounter for screening for malignant neoplasm of respiratory organs (principal); F17.210 Nicotine dependence, cigarettes, uncomplicated
CPT/HCPCS: 71271

== ENCOUNTER → 2025-01-02 09:40 | Outpatient (BNV) | payer OTHER, SELFPAY | PROVIDERS: PCP Internal Medicine Geriatric Medicine; Visit Provider Nuclear Medicine | DX: F17.210 Nicotine dependence, cigarettes, uncomplicated (principal) | CPT/HCPCS: 71271 ==

== ENCOUNTER 2025-02-27 11:24 | Emergency (ER) | payer OTHER, SELFPAY ==
--- NOTE | ~2025-02-27 | US_ITS ---
CLINICAL HISTORY: right sided pain? abscess US Scrotum with Doppler Comparison: None provided Findings: Right testicle normal echotexture, 3.8 x 1.8 x 2.5 cm. Left testicle normal echotexture, 3.7 x 2 x 2.8 cm. There is blood flow of the bilateral testicles. Questionable mild increase of blood flow of the bilateral testicles. There are bilateral epididymal cysts. There are calcifications of the right epididymal head. Prominent blood vessel of the right side of scrotum. Small bilateral hydrocele, left greater than right. IMPRESSION: No evidence of torsion. Questionable mild increase of blood flow of both testicles. Orchitis can not be excluded. Small bilateral hydrocele, left greater than right. Additional findings as above. This document has been electronically signed by: Raheel Thompson MD on 02/27/2025 18:08:53
[2025-02-27 11:45] VITALS: BP 126/80; PULSE 64; RESP 16; TEMP 36.6; O2SAT 98; BMI 31.4
--- NOTE | 2025-02-27 11:45 | ED.GENADULT ---
HPI - General Adult General Chief complaint: Urogenital-Male Stated complaint: groin abscess Time Seen by Provider: 02/27/25 15:56 History of Present Illness ED Provider: Blaine THOMAS narrative: The patient is a 59-year-old male who was sent to the emergency room from the [facility]. He had presented to the [facility] with a complaint of pain and tenderness on the right side of his scrotum. He says that this problem started yesterday morning. He says that his pain is a 5/10. He denies any fever, sweats, chills. He says he has had problems with previous abscesses in the past and has seen Dr. Montanez of General surgery for some abscesses in the past but he does not think that he has ever had an abscess or infection in the region of the scrotum. No nausea or vomiting. No abdominal pain. No dysuria. No testicular pain. Related Data Home Medications ?Medication ?Instructions ?Recorded ?Confirmed albuterol sulfate 90 mcg/actuation 2 puff inhalation Q4-6H PRN 09/07/22 04/03/24 aerosol inhaler Shortness Of Breath Or Wheezing pravastatin 20 mg tablet 20 mg PO QAM 01/17/23 04/03/24 ciclopirox 0.77 % topical cream 1 appl topical BID 11/02/23 04/03/24 clobetasol 0.05 % topical ointment 1 appl topical BID 11/02/23 04/03/24 diphenhydramine HCl 25 mg capsule 25 mg PO Q4-6H PRN Itching 11/02/23 04/03/24 epinephrine 0.3 mg/0.3 mL 0.3 mg IM Q4H PRN Anaphylaxis 11/02/23 04/03/24 injection, auto-injector (EpiPen) triamcinolone acetonide 0.1 % appl topical BID PRN Rash 11/02/23 04/03/24 topical ointment Previous Rx's ?Medication ?Instructions ?Recorded famotidine 40 mg tablet 40 mg PO BEDTIME 90 days #90 tabs 09/26/24 solifenacin 10 mg tablet (Vesicare) 10 mg PO DAILY 30 days #30 tabs 01/29/25 amoxicillin 875 mg-potassium 1 tab PO BID #16 tabs 07/17/25 clavulanate 125 mg tablet doxycycline monohydrate 100 mg 100 mg PO BID #20 caps 02/27/25 capsule ibuprofen 400 mg tablet 400 mg PO Q6H PRN pain #14 tabs 02/27/25 Allergies Allergy/AdvReac Type Severity Reaction Status Date / Time Iodinated Contrast Media (IV Allergy Intermediate Hives Verified 02/27/25 11:47 CONTRAST) iopromide (From Ultravist) Allergy Intermediate PATIENT Verified 02/27/25 11:47 DEVELOPED HIVES AND REDNESS ON THROAT AND CHEST bee pollen (bee stings) Allergy Unknown Verified 02/27/25 11:47 Review of Systems Review of Systems: Yes all other systems are reviewed and are negative [facility] Past Medical History Medical History Rash Tinea pedis Simple renal cyst Chronic periodontitis Dental calculus Polyp of colon Prostatism Pulmonary emphysema Tobacco dependence Vitamin D deficiency Sleep apnea Elevated cholesterol Lung mass Chronic abdominal pain Infected epithelial inclusion cyst Epidermal cyst of neck Abscess of groin, left Nicotine dependence, cigarettes, uncomplicated Surgical History History of removal of cyst (~09/13/23) H/O excision of mass History of esophagogastroduodenoscopy (EGD) History of epidermal inclusion cyst excision (~07/15/21) History of removal of cyst H/O excision of mass (11/14/18) H/O colonoscopy (2015) History of umbilical hernia repair (03/19/19) Family History Family History Father Colon cancer Skin cancer Mother Skin cancer Brother Stomach cancer, Onset Age: 57 Social History Social History Alcohol intake: former Patient Tobacco Use Status: Current everyday Tobacco user Tobacco use type: Cigarette Cigarette Packs Per Day: 0.5 Cigarettes Per Day: 10 Years Smoked: 41 (onset 14) Smoked in Last 30 Days: Yes Use of substances other than those prescribed or required for medical reasons: No Advance Directives: No Advance Directives Information Provided: No Do you have a plan to hurt others: No Plan Physical Exam ED Vital Signs: Vital Signs - 24 hr 02/27/25 11:45 02/27/25 16:58 02/27/25 20:06 Temperature 97.9 F 98.3 F Pulse Rate 64 61 69 Respiratory Rate 16 18 16 Blood Pressure 126/80 134/78 139/72 Pulse Oximetry 98 97 97 Oxygen Delivery Method Room Air Room Air Room Air BMI result Body Mass Index 31.4 Const Other: The patient is a very pleasant 59-year-old male who was awake and alert and who does not appear in acute distress. Orientation/consciousness: patient oriented x3 HENMT Other: The face is symmetrical. ?Mucous membranes moist. Eyes General: appearance normal, both eyes and all related structures Neck Neck: Yes normal visual inspection and Yes full ROM Resp Effort & Inspection: normal respiratory effort Auscultation: clear to auscultation bilaterally Cardio Rate: regular rate Rhythm: regular rhythm Heart sounds: S1 normal heart sound present and S2 normal heart sound present GI Other: The abdomen is soft and nontender Other: There is an area of redness, swelling, and tenderness to the skin of the scrotum on the right side. This is fairly proximal on the scrotum just where the scrotal skin meets the normal skin at the upper aspect of the scrotum near the inguinal fold. The testicles seem unremarkable. The redness is confined to the area of the swelling and is not generalized to the scrotum. The swelling is about the size of a marble. The swelling is tender. I felt it might be slightly fluctuant. The vast majority of the scrotal skin is normal and unremarkable and soft. Skin Other: There is a small area of erythema and tenderness to the scrotal skin on the right side. Otherwise the skin is unremarkable. Neuro General: patient oriented x3, gait normal, tone normal, moves all extremities, no focal motor deficits and CN's II-XI intact bilaterally Extrem Other: There is no calf swelling or tenderness. No asymmetry. No peripheral edema. Course Course Course Narrative: This is a rapid medical exam performed by Gricelda Marques NP: Additional HPI, ROS, PE not included below will be deferred to primary provider. Patient is a 59y/o M presenting from [facility] for scrotal abscess. Patient states he noticed yesterday, denies fevers. Denies hx of DM. translating in triage. Plan: labs, area not visualized in triage due to privacy concerns Medications Administered Discontinued Medications Generic Name Dose Route Start Last Admin Trade Name Maria R PRN Reason Stop Dose Admin Ceftriaxone Sodium 2 gm 02/27/25 16:20 02/27/25 16:58 Ceftriaxone Sodium 2 Gm Vial IVPUSH 02/27/25 16:21 2 gm ONCE ONE Administration Doxycycline Hyclate 100 mg/ 250 mls @ 166.67 mls/hr 02/27/25 16:20 02/27/25 19:03 Sodium Chloride IV 02/27/25 17:49 Infused ONCE ONE Infusion Lidocaine HCl 5 ml 02/27/25 18:58 02/27/25 19:05 Lidocaine Hcl 1 % Mpf 5 Ml Vial INFILTRATI 02/27/25 18:59 5 ml ONCE ONE Administration Medical Decision Making Medical Decision Making [facility] Narrative: The patient is a 59-year-old male who was not a diabetic who presents with a 1 day history of localized pain, swelling, and redness to a very specific area of the right upper scrotum. He denies fever, sweats, chills. He denies any injury. Clinically the patient seems to have a small soft tissue infection in the scrotal skin. This does not seem to extend to the scrotum generally in any way and does not seem to affect the testes. I had ordered a scrotal ultrasound but unfortunately the scrotal ultrasound did not comment on the area of concern. Clinically it seemed as if this might be a phlegmon or small area of abscess. I explained to the patient that I thought it would be reasonable for me to attempt a needle aspiration or possibly an incision and drainage if the needle aspiration was consistent with a an abscess. To this end I recommended a bedside procedure and the patient consented. I prepped the skin overlying the area of swelling and tenderness with Betadine. I anesthetized the skin with 1% lidocaine using 2 mL of lidocaine through a 30 gauge needle. I then introduced an 18 gauge needle into the region of swelling. I made a proximally 3 passes with a needle but did not aspirate any pus. After 3 essentially negative passes with the an 18 gauge needle I did not feel that there was an indication for an incision. What small amount of fluid I aspirated with a needle was swabbed for culture. The patient had received 2 g of IV ceftriaxone and 100 mg of IV doxycycline. He looks well enough for outpatient management. I do not think this infection is anything like Mone gangrene. This seems to be well localized infection in the scrotal wall. The patient will be discharged with a prescriptions for Augmentin and doxycycline. He should contact the urology office for a follow up appointment. He should return if worse. Lab Data 02/27/25 12:42 02/27/25 12:42 Labs: Lab Results 02/27/25 Range/Units 12:42 WBC 8.6 (4.8-10.8) X10*3/uL RBC 5.17 (4.60-5.80) X10*6/uL Hgb 16.0 (14.0-18.0) g/dl Hct 48.1 (42.0-52.0) % MCV 93.0 (80.0-98.0) fL MCH 30.9 (27.0-33.0) pg MCHC 33.3 (31.0-36.0) g/dl RDW 13.4 (11.0-16.0) % Plt Count 213 (160-400) X10*3/uL MPV 10.3 (9.4-12.4) fL Immature Gran % (Auto) 0.6 H (0.0-0.4) % Neut % (Auto) 73.2 H (45-73) % Lymph % (Auto) 16.8 L (20-40) % [place] % (Auto) 6.8 (2-11) % Eos % (Auto) 2.0 (0-4) % Baso % (Auto) 0.6 (0-2) % Lymph # (Auto) 1.5 (1.2-4.9) X10*3/uL [place] # (Auto) 0.6 (0.1-1.2) X10*3/uL Eos # (Auto) 0.2 (0.0-0.4) X10*3/uL Baso # (Auto) 0.1 (0.0-0.2) X10*3/uL Abs Immat Gran (auto) 0.05 H (0.00-0.03) X10*3/uL Absolute Neuts (auto) 6.3 (2.0-8.3) x10*3/uL Absolute Nucleated RBC 0.000 (0.0-0.012) X10*3/uL Nucleated RBC % (auto) 0.0 (0.0-0.2) /100WBC Sodium 140 (135-145) mmol/L Potassium 4.1 (3.3-5.1) mmol/L Chloride 108 (96-108) mmol/L Carbon Dioxide 25 (22-29) mmol/L Anion Gap 11 L (12-20) BUN 15 (9-16) mg/dL Creatinine 0.72 (0.5-1.4) mg/dL Estim Creat Clear Calc 113.5 Estimated GFR > 60 Random Glucose 91 (60-115) mg/dL Calcium 9.0 (8.4-10.2) mg/dL Total Bilirubin 0.5 (0.0-1.0) mg/dL AST 20 (5-37) U/L ALT 23 (0-40) U/L Alkaline Phosphatase 68 (39-117) U/L Total Protein 6.8 (6.5-8.0) g/dL Albumin 4.5 (3.5-5.0) g/dL Discharge Plan Discharge Clinical Impression: Abscess of scrotal wall Patient Disposition: Home, Self-Care Additional Instructions: Please picker your prescriptions 1st thing tomorrow morning. Please take a dose of each of the antibiotics 1st thing in the morning as soon as you picker the prescriptions. Rest and take it easy tomorrow. Apply warm compresses to the area several times a day. You may use ibuprofen every 6 hours as needed for discomfort. You may also use [id number] acetaminophen in addition to the ibuprofen. Please rest and take it easy on Monday and Monday. My hope is that you will be feeling well enough to go to work on Monday. Also tomorrow morning please call the urology office to see if they can give you an appointment early next week for a recheck. If at any point you are feeling significantly worse please return to the emergency room for re-evaluation here. Prescriptions: New amoxicillin-pot clavulanate 875-125 mg tablet 1 tab PO BID Qty: 16 0RF doxycycline monohydrate 100 mg capsule 100 mg PO BID Qty: 20 0RF ibuprofen 400 mg tablet 400 mg PO Q6H PRN (Reason: pain) Qty: 14 0RF No Action solifenacin [Vesicare] 10 mg tablet 10 mg PO DAILY 30 Days Qty: 30 3RF diphenhydramine HCl 25 mg Capsule 25 mg PO Q4-6H PRN (Reason: Itching) triamcinolone acetonide 0.1 % ointment topical BID PRN (Reason: Rash) clobetasol 0.05 % ointment 1 appl topical BID epinephrine [EpiPen] 0.3 mg/0.3 mL Auto-Injector 0.3 mg IM Q4H PRN (Reason: Anaphylaxis) ciclopirox 0.77 % cream 1 appl topical BID albuterol sulfate 90 mcg/actuation HFA aerosol inhaler 2 puff inhalation Q4-6H PRN (Reason: Shortness Of Breath Or Wheezing) pravastatin 20 mg tablet 20 mg PO QAM famotidine 40 mg tablet 40 mg PO BEDTIME 90 Days Qty: 90 0RF Referrals: [facility] [Provider Group, Urology] Referral Note: scrotal wall abscess Stand Alone Forms: Work/School Release Interventions: ED Discharge Assessment Last Done: 02/27/25 20:06 Discharge Date/Time: 02/27/25 20:07 Print Language: Czech
[2025-02-27 12:46] LABS: MANUAL DIFF FLAG NO
[2025-02-27 13:05] LABS: Alanine Aminotransferase 23 U/L (0-40); Albumin Level 4.5 g/dL (3.5-5.0); Alkaline Phosphatase 68 U/L (39-117); Anion Gap 11 (12-20); Aspartate Amino Transferase 20 U/L (5-37); Blood Urea Nitrogen 15 mg/dL (9-16); Calcium 9.0 mg/dL (8.4-10.2); Carbon Dioxide 25 mmol/L (22-29); Chloride 108 mmol/L (96-108); Creatinine Clr Calc Pharmacy 113.5; Estimated Glomerular Filt Rate > 60; Potassium 4.1 mmol/L (3.3-5.1); Sodium 140 mmol/L (135-145); Total Protein 6.8 g/dL (6.5-8.0)
[2025-02-27 13:14] LABS: Hematocrit 48.1 % (42.0-52.0); Hemoglobin 16.0 g/dl (14.0-18.0); Imm Gran Abs Auto 0.05 X10*3/uL (0.00-0.03); Imm Gran Pct Auto 0.6 % (0.0-0.4); Lymphocytes Absolute Auto 1.5 X10*3/uL (1.2-4.9); Mean Corpuscular HGB Conc 33.3 g/dl (31.0-36.0); Mean Corpuscular Hemoglobin 30.9 pg (27.0-33.0); Mean Corpuscular Volume 93.0 fL (80.0-98.0); NRBC Abs Auto 0.000 X10*3/uL (0.0-0.012); NRBC Pct Auto 0.0 /100WBC (0.0-0.2); Platelet Count 213 X10*3/uL (160-400); Red Blood Count 5.17 X10*6/uL (4.60-5.80); White Blood Count 8.6 X10*3/uL (4.8-10.8)
--- NOTE | 2025-02-27 14:26 | PC.NURSE ---
Pt approaching registration staff asking why he has not gotten his shot for his abscess. Patient previously informed by provider and this RN he will need to have his abscess evaluated by a provider and need possible IV abx, these tasks cannot be completed from the waiting room. Patient satisfaction Derrick speaking with patient, encouraging patient to stay.
[2025-02-27 16:58] VITALS: BP 134/78; PULSE 61; RESP 18; O2SAT 97
--- OUTSIDE RECORDS SUMMARY | 2025-02-27 16:58 | XMS_ITS | Patient Health Record ---
Author Organization [facility] Address [address] [place] [address] Care Team Providers Care Rn Palliative Care Name Role Phone Robert Ferrara Jr Unavailable [phone] Reason For Referral No Information Plan Of Treatment No Information
--- OUTSIDE RECORDS SUMMARY | 2025-02-27 16:58 | XMS_ITS | Encounter Summary ---
Author Organization [employer] Address [address] [place] [address] Care Team Providers Care Senior Data Mining Analyst Name Role Phone Name, Ernst COPE Primary Care Provider [phone] Encounter Details Date Type Department Care Team (Latest Contact Info) Description 10/13/2020 Abstract [facility] CONVERSIONS Dental, Provider, DDS Social History [...] Care Team ( st Contact Info) Description 04/10/2025 8:00 AM EDT Office Visit [facility] ADULT DENTAL [address] [place] [address] Ta Doherty DMD [address] [place] [address] 05/01/2025 11:30 AM EDT Office Visit [facility] MEDICINE [address] [place] [address] Name, MD Ernst [address] [place] [address] 08/28/2025 8:00 AM EST Office Visit [facility] ADULT DENTAL [address] [place] [address] Jennifer Castaneda [address] [place] [address] documented as of this encounter Visit Diagnoses Not on filedocumented in this encounter Care Teams Senior Data Mining Analyst Relationship Specialty Start Date End Date Name, MD Ernst [address] [place] [address] PCP - General Family Medicine 10/08/15 documented as of this encounter
--- OUTSIDE RECORDS SUMMARY | 2025-02-27 16:58 | XMS_ITS | Clinical Summary ---
Author Organization [address] [facility] Address [address] [place] [address] Phone Care Team Providers Care Senior Internet Sales Consultant Name Role Phone Physician, Pcp Unknown Primary [...] 3:00 PM EDT Office Visit Orthopedic Surgery [facility] [address] [facility] [address] [place] [address] Len Kang Keon, DPM Pain in left toe(s) (Primary Dx); Arthritis of both feet; Equinus contracture of left ankle; Plantar fasciitis from Last 3 Months Immunizations Name Administration Dates Next Due Influenza trivalent, with pr eservative (Fluzone; Afluria) 6mo and older 06/11/2014,07/04/2013,07/20/2012 Tdap Tetanus diptheria acell ular pertussis (Boostrix; Adacel) 7yo and older 03/22/2013 Surgical History Surgery Date Site/Laterality Comments OTHER SURGICAL HISTORY - PROCEDURE: HISTORICAL EAR SURGERY; COMMENT: TM tubes - bilateral OTHER SURGICAL HISTORY PROCEDURE: [place] ESOPHAGOSCOPY FLEXIBLE TRANSORAL DIAGNOSTIC; COMMENT: GERD resolved after H.pylori treatment COLONOSCOPY 06/17/2010 PROCEDURE: [place] COLONOSCOPY STOMA DX INCLUDING COLLJ SPEC SPX [...] 12/18/2024 3:02 PM EDT Plan of Treatment Health Maintenance Due Date Last Done Comments Hepatitis A Vaccines (1 of 2 - Risk 2-dose series) 1983 Pneumococcal Vaccine: 50+ Years (1 of 2 - PCV) 1983 Zoster Vaccines (1 of 2) 2014 COVID-19 Vaccine (1 - season) 2024 RSV Immunization Adult Patients (1 - Risk 60-74 years 1-dose series) 2024 Colorectal Cancer Screening: Colonoscopy 07/30/2024 HIV Screening 07/30/2024 Hepatitis C Screening 07/30/2024 Lung Cancer Screening (Low Dose CT) 07/30/2024 Social Influencers of Health Screening 07/30/2024 Depression Screening 08/14/2024 Influenza Vaccine (#1) 2025 6, 06/11/2014, 07/04/2013, Additional history exists Cholesterol Screening (Lipid Panel) 10/13/2027 10/12/2022, 09/04/2014 [...] 12/18/2024 3:00 PM EDT Len Kang DPM 12/18/2024 3:42 PM Injection tendon or ligament Indications: pain Details: 25 G needle Medications: 0.5 mL lidocaine (PF) 1 %; 40 mg triamcinolone acetonide 40 mg/mL Informed Consent: Laterality: Right Len Kang DPM IN CLINIC/BEDSIDE ORDERABLE S [...] Most Recently Relevant to Health Maintenance Insurance [facility] MEDICAID ADVANTAGE Care Teams Senior Internet Sales Consultant Relationship Specialty Start Date End Date Physician, Pcp Unknown PCP - General 07/30/24
--- NOTE | 2025-02-27 17:32 | PC.NURSE ---
pt medicated with IV abx per order
[2025-02-27] MEDS: Lidocaine HCl 1 % MPF 5 ML VIAL INFILTRATI (19:05)
--- NOTE | 2025-02-27 19:05 | PC.NURSE ---
provider to administer lido
[2025-02-27 20:06] VITALS: BP 139/72; PULSE 69; RESP 16; TEMP 36.8; O2SAT 97
== END 2025-02-27 20:07 | disposition home or self-care (01) ==
PROVIDERS: Registered Nurse Emergency; Emergency Provider Emergency Medicine; PCP Internal Medicine Geriatric Medicine
DX: N49.2 Inflammatory disorders of scrotum (principal); L02.214 Cutaneous abscess of groin; F17.210 Nicotine dependence, cigarettes, uncomplicated; Z79.899 Other long term (current) drug therapy
CPT/HCPCS: 36415; 76870; 80053; 85025; 87070; 87205; 96365; 96366; 96375; 99284; J0696; J1271; J2003

== ENCOUNTER → 2025-02-27 16:18 | Outpatient (BNV) | payer OTHER, SELFPAY | PROVIDERS: Emergency Provider Emergency Medicine; PCP Internal Medicine Geriatric Medicine; Visit Provider Nuclear Medicine | DX: N43.3 Hydrocele, unspecified (principal) | CPT/HCPCS: 76870 ==

== ENCOUNTER 2025-03-07 09:38 | Outpatient (AMB) | payer OTHER, SELFPAY ==
--- OUTSIDE RECORDS SUMMARY | 2025-03-07 09:49 | XMS_ITS | Patient Health Record ---
Author Organization [facility] Address [address] [place] [address] Care Team Providers Care Tuckpointer Cleaner Caulker Name Role Phone Robert Ferrara Jr Unavailable Reason For Referral No Information Plan Of Treatment No Information
--- OUTSIDE RECORDS SUMMARY | 2025-03-07 09:49 | XMS_ITS | Clinical Summary ---
Author Organization [facility] Address [address] [place] [address] Phone Care Team Providers Care Center Director Lead Teacher Name Role Phone Physician, Pcp Unknown Primary [...] 3:00 PM EDT Office Visit Orthopedic Surgery [facility] [address] [facility] [address] [place] [address] Len Kang Keon, DPM Pain in left [...] tubes - bilateral OTHER SURGICAL HISTORY PROCEDURE: [place] ESOPHAGOSCOPY FLEXIBLE TRANSORAL DIAGNOSTIC; COMMENT: GERD resolved after H.pylori treatment COLONOSCOPY 06/17/2010 PROCEDURE: [place] COLONOSCOPY STOMA DX INCLUDING COLLJ SPEC SPX [...] Relevant to Health Maintenance Insurance [facility] MEDICAID ADVANTAGE Care Teams Center Director Lead Teacher Relationship Specialty Start Date End Date Physician, Pcp Unknown PCP - General 07/30/24
--- OUTSIDE RECORDS SUMMARY | 2025-03-07 09:49 | XMS_ITS | Encounter Summary ---
Author Organization [employer] Address [address] [place] [address] Care Team Providers Care Shift Production Supervisor Name Role Phone Name, Ernst COPE Primary Care Provider [phone] Encounter Details Date Type Department Care Team (Latest Contact Info) Description 10/13/2020 Abstract [facility] CONVERSIONS Dental, Provider, DDS Social [...] Description 04/10/2025 8:00 AM EDT Office Visit [facility] ADULT DENTAL [address] [place] [address] Ta Doherty DMD [address] [place] [address] 05/01/2025 11:30 AM EDT Office Visit [facility] MEDICINE [address] [place] [address] Name, MD Ernst [address] [place] [address] 08/28/2025 8:00 AM EST Office Visit [facility] ADULT DENTAL [address] [place] [address] Jennifer Castaneda [address] [place] [address] documented as of this encounter Visit Diagnoses Not on filedocumented in this encounter Care Teams Shift Production Supervisor Relationship Specialty Start Date End Date Name, MD Ernst [address] [place] [address] PCP - General Family Medicine 10/08/15 documented as of this encounter
--- NOTE | 2025-03-07 10:19 | MHC.OFFVIS ---
Intake Visit Reasons: Scrotal wall abscess Intake Note: Patient presents today for scrotal wall abscess Urology Medication:Solifenacin Antibiotic Allergy:NONE Blood Thinner:NONE PVR:10ml Public Accountant Required: No Public Accountant Services: Public Accountant Present Public Accountant Name: Joe Morton Accompanied by: Self / Same As Patient Allergies Iodinated Contrast Media (IV CONTRAST) Allergy (Intermediate, Verified 03/07/25 10:21) Hives iopromide (From Ultravist) Allergy (Intermediate, Verified 03/07/25 10:21) PATIENT DEVELOPED HIVES AND REDNESS ON THROAT AND CHEST bee pollen (bee stings) Allergy (Verified 03/07/25 10:21) Unknown Medication List - Last Reconciled 03/07/25 by Lakhwinder Mcnally MD albuterol sulfate 90 mcg/actuation 2 puffs inhalation Q4-6H PRN amoxicillin-pot clavulanate 875-125 mg 1 tab PO BID 5 days ciclopirox 0.77% 1 appl topical BID clobetasol 0.05% 1 appl topical BID diphenhydramine HCl 25 mg PO Q4-6H PRN doxycycline monohydrate 100 mg PO BID epinephrine (EpiPen) 0.3 mg IM Q4H PRN famotidine 40 mg PO BEDTIME 90 days ibuprofen 400 mg PO Q6H PRN pravastatin 20 mg PO QAM solifenacin (Vesicare) 10 mg PO DAILY 30 days triamcinolone acetonide 0.1% appl topical BID PRN HPI Comments Details: 03/07/25--Arsen is a 59-year-old male who is followed for interstitial cystitis and BPH. He is here today for evaluation of testicular pain. History of Present Illness - The patient is a 59-year-old male presenting with testicular pain - The patient has a history of interstitial cystitis and benign prostatic hyperplasia (BPH). - The patient visited the emergency room on February 27, 2025, for pain in the right testicle. - A testicular ultrasound performed on February 27, 2025, was consistent with orchitis. - The patient was prescribed Augmentin 875 mg for 8 days. - The patient reports improvement in symptoms with less pain and no significant swelling or cellulitis noted on examination. Results - Testicular ultrasound on February 27, 2025: Consistent with orchitis Plan - Continue Augmentin 875 mg twice a day for an additional 5 days. - Follow up with a nurse practitioner for regular management of interstitial cystitis and BPH. 12/26/24--Arsen is a 59-year-old Setswana-speaking male patient of Dr. Ramirez. He has a past medical history of pulmonary emphysema, tobacco dependence, vitamin-D deficiency, sleep apnea, and hypercholesteremia. He presents to the office today for follow-up of his ongoing lower urinary tract symptoms, bladder instability, and interstitial cystitis. Of note, patient was seen approximately extremely [address] Gayle at which time he was started on Toviaz. In discussion with the patient today he reports no improvement in urinary urgency and or episodes of nocturia he had been experiencing. He has previously trialed oxybutynin and famotidine with no improvement. We discussed potential causes of lower urinary tract symptoms patient is experiencing as well as further treatment options and risks and benefits of these treatment options. Patient with a previous GreenLight laser procedure with Dr. Gayle 11/04 at which time bladder a procedure. To have some degree of interstitial cystitis. We discussed importance of avoiding bladder triggers and irritants. We also discussed importance of limiting/quitting nicotine dependence for improvement in lower urinary tract symptoms as well as overall health and well-being. In office urinalysis results reviewed with the patient today. PVR 59 mL. When asked he denies dysuria, foul smelling urine, flank pain, fever, and or chills. PSAs are as follows: 09/05 1.2, 09/05 1.0 Cystoscopy 11/03 tight prostate - laser of prostate 11/04 Concomitant obstructive sleep apnea mild PFSH Medical History Rash Tinea pedis Simple renal cyst Chronic periodontitis Dental calculus Polyp of colon Prostatism Pulmonary emphysema Tobacco dependence Vitamin D deficiency Sleep apnea Elevated cholesterol Lung mass Chronic abdominal pain Infected epithelial inclusion cyst Epidermal cyst of neck Abscess of groin, left Nicotine dependence, cigarettes, uncomplicated Surgical History History of removal of cyst (~09/13/23) H/O excision of mass History of esophagogastroduodenoscopy (EGD) History of epidermal inclusion cyst excision (~07/15/21) History of removal of cyst H/O excision of mass (11/14/18) H/O colonoscopy (2016) History of umbilical hernia repair (03/19/19) Family History Father Colon cancer Skin cancer Mother Skin cancer Brother Stomach cancer, Onset Age: 57 Social History Alcohol intake: former Patient Tobacco Use Status: Current everyday Tobacco user Tobacco use type: Cigarette Cigarette Packs Per Day: 0.5 Cigarettes Per Day: 10 Years Smoked: 41 (onset 14) Review of Systems Const All systems reviewed & are unremarkable except as noted in HPI and below Reports no additional complaints Eyes Reports no additional complaints ENT Reports no additional complaints Card Reports no additional complaints Resp Reports no additional complaints GI Reports no additional complaints Reports as per HPI Musc Reports no additional complaints Skin/Breast Reports system reviewed and no additional complaints, except as documented Neuro Reports no additional complaints Psych Reports no additional complaints Endo Reports no additional complaints Vern/Lymph Reports no additional complaints Aller/Immun Reports no additional complaints Results AMB Urinalysis, Automated UA Leukoctes 0 Andrés/uL Last Edit by Erum Gerard on 03/07/25 12:09 UA Nitrite Negative Last Edit by Erum Gerard on 03/07/25 12:09 UA Urobilinogen 3.5 mg/dL Last Edit by Erum Gerard on 03/07/25 12:09 UA Protein 0 mg/dL Last Edit by Erum Gerard on 03/07/25 12:09 UA pH 6.0 Last Edit by Erum Gerard on 03/07/25 12:09 UA Blood 80 Dante/uL Last Edit by Erum Gerard on 03/07/25 12:09 UA Specific [place] 1.010 Last Edit by Erum Gerard on 03/07/25 12:09 UA Ketone Negative Last Edit by Erum Gerard on 03/07/25 12:09 UA Bilirubin 0 mg/dL Last Edit by Erum Gerard on 03/07/25 12:09 UA Glucose 0 mg/dL Last Edit by Erum Gerard on 03/07/25 12:09 Results Reviewed Results Reviewed: Laboratory Last Values Urine pH (Auto) 6.0 03/07/25 12:02 Specific [place] (Auto) 1.010 03/07/25 12:02 Urine Protein (Auto) 0 mg/dL 03/07/25 12:02 Glucose (UA)(Auto) 0 mg/dL 03/07/25 12:02 Urine Ketones (Auto) Negative 03/07/25 12:02 Urine Blood (Auto) 80 Dante/uL 03/07/25 12:02 Urine Nitrite (Auto) Negative 03/07/25 12:02 Urine Bilirubin (Auto) 0 mg/dL 03/07/25 12:02 Urine Urobilinogen (Auto) 3.5 mg/dL 03/07/25 12:02 Leukocyte Esterase (Auto) 0 Andrés/uL 03/07/25 12:02 Date of Service: 02/27/25 CLINICAL HISTORY: right sided pain? abscess US Scrotum with Doppler Comparison: None provided Findings: Right testicle normal echotexture, 3.8 x 1.8 x 2.5 cm. Left testicle normal echotexture, 3.7 x 2 x 2.8 cm. There is blood flow of the bilateral testicles. Questionable mild increase of blood flow of the bilateral testicles. There are bilateral epididymal cysts. There are calcifications of the right epididymal head. Prominent blood vessel of the right side of scrotum. Small bilateral hydrocele, left greater than right. IMPRESSION: No evidence of torsion. Questionable mild increase of blood flow of both testicles. Orchitis can not be excluded. Small bilateral hydrocele, left greater than right. Additional findings as above. Assessment & Plan Assessment & Plan (1) Orchitis: Code(s): N45.2 - Orchitis Category: Medical (2) Testicular pain, right: Code(s): N50.811 - Right testicular pain Category: Medical Plan amoxicillin-pot clavulanate 875-125 mg 1 tab PO BID 10 tabs 0RF 5 days Orders: Orders AMB Urinalysis Automated 03/07/25 N45.2 - Orchitis, N50.811 - Right testicular pain AMB Post Void Residual by ultrasound 03/07/25 N45.2 - Orchitis, N50.811 - Right testicular pain Medications: Changed From amoxicillin-pot clavulanate 875-125 mg 1 tab PO BID 16 tabs 0RF To amoxicillin-pot clavulanate 875-125 mg 1 tab PO BID 10 tabs 0RF 5 days Patient Instructions: The patient had an opportunity to ask questions regarding treatment plan. The patient expressed understanding and agreement with the above treatment plan. The patient is aware they should contact our office by phone for worsening of their current condition or the appearance of new symptoms. Compliance is encouraged with any medications and followup testing that is ordered. It is a privilege to be allowed the opportunity to participate in the urologic care of your patient. If you have any questions or concerns regarding treatment for the above conditions please do not hesitate to contact me. The office telephone contact is [phone]. This note is constructed in part using voice recognition software. While every effort has been made to ensure accuracy technical operations specialist errors may have been included. Yours sincerely, Lakhwinder Mcnally MD Scribe Plan - Not visible on output: Patient was informed and verbally consented to the use of an ambient scribe for clinic note documentation during this visit. Coding Level of Care Code Est Pt Level 4 (46349) Diagnoses Orchitis N45.2 Testicular pain, right N50.811
== END 2025-03-07 10:40 | disposition home or self-care (01) ==
LOC: HO.HUSH 09:38
PROVIDERS: PCP Internal Medicine Geriatric Medicine; Visit Provider Urology
DX: N45.2 Orchitis (principal); N50.811 Right testicular pain
CPT/HCPCS: 99214

== ENCOUNTER → 2025-03-07 09:38 | Outpatient (BNVA) | payer OTHER, SELFPAY | PROVIDERS: PCP Internal Medicine Geriatric Medicine; Visit Provider Urology | DX: N45.2 Orchitis (principal); N50.811 Right testicular pain | CPT/HCPCS: 81003 ==

== ENCOUNTER 2025-04-17 09:10 | Outpatient (REF) | payer OTHER, SELFPAY | END 2025-04-17 09:11 | disposition home or self-care (01) | LOC: HO.LAB 09:10 | PROVIDERS: PCP Internal Medicine Geriatric Medicine; Visit Provider Nurse Practitioner Family | DX: N40.0 Benign prostatic hyperplasia without lower urinary tract symptoms (principal); N30.11 Interstitial cystitis (chronic) with hematuria; F17.200 Nicotine dependence, unspecified, uncomplicated | CPT/HCPCS: 51798; 81003; 88112 ==

== ENCOUNTER 2025-04-17 09:10 | Outpatient (AMB) | payer OTHER, SELFPAY ==
--- NOTE | 2025-04-17 09:33 | A.OFFVIS_ITS ---
Intake Visit Reasons: follow up/PVR Intake Note: patient presents today for: follow up/PVR urology medications: solifenacin blood thinners: none today's PVR: 0mls Tactical Air Control Party Manager Required: Yes Tactical Air Control Party Manager Services: Tactical Air Control Party Manager Present Tactical Air Control Party Manager Name: Ian Workman Accompanied by: Self / Same As Patient Allergies Iodinated Contrast Media (IV CONTRAST) Allergy (Intermediate, Verified 04/17/25 09:51) Hives iopromide (From Ultravist) Allergy (Intermediate, Verified 04/17/25 09:51) PATIENT DEVELOPED HIVES AND REDNESS ON THROAT AND CHEST bee pollen (bee stings) Allergy (Verified 04/17/25 09:51) Unknown Medication List - Last Reconciled 04/17/25 by MISSY Luu albuterol sulfate 90 mcg/actuation 2 puffs inhalation Q4-6H PRN amoxicillin-pot clavulanate 875-125 mg 1 tab PO BID 5 days ciclopirox 0.77% 1 appl topical BID clobetasol 0.05% 1 appl topical BID diphenhydramine HCl 25 mg PO Q4-6H PRN doxycycline monohydrate 100 mg PO BID epinephrine (EpiPen) 0.3 mg IM Q4H PRN famotidine 40 mg PO BEDTIME 90 days ibuprofen 400 mg PO Q6H PRN pravastatin 20 mg PO QAM triamcinolone acetonide 0.1% appl topical BID PRN HPI Comments Details: Arsen is a 59-year-old Danish-speaking male patient of Dr. Ramirez. He has a past medical history of pulmonary emphysema, tobacco dependence, vitamin-D deficiency, sleep apnea, and hypercholesteremia. He presents to the office today for follow-up of his lower urinary tract symptoms, bladder instability, interstitial cystitis, and orchitis. In discussion with the patient today he reports since his last office visit here approximately 2 months ago he has since completed antibiotic therapy as prescribed for orchitis. He reports pain he had been experiencing has since subsided. He currently denies any bothersome urinary issues. He reports compliance with VESIcare as prescribed in discusses how helpful this has been in treatment of lower urinary tract symptoms of urinary urgency and nocturia. In office urinalysis results reviewed with the patient today. We did discussed importance of obtaining PSA as discussed during last office visit. PVR today 0 mL. Patient had previously trialed Toviaz and oxybutynin without improvement in lower urinary tract symptoms. Patient with a previous GreenLight laser procedure with Dr. Gayle 11/04 at which time he was noted to have some degree of interstitial cystitis. We discussed importance of avoiding bladder triggers and irritants. We also discussed importance of limiting/quitting nicotine dependence for improvement in lower urinary tract symptoms as well as overall health and well-being. When asked he denies dysuria, foul smelling urine, flank pain, fever, and or chills. PSAs are as follows: 09/05 1.2, 09/05 1.0 Cystoscopy 11/03 tight prostate - laser of prostate 11/04 Concomitant obstructive sleep apnea mild PFSH Medical History Rash Tinea pedis Simple renal cyst Chronic periodontitis Dental calculus Polyp of colon Prostatism Pulmonary emphysema Tobacco dependence Vitamin D deficiency Sleep apnea Elevated cholesterol Lung mass Chronic abdominal pain Infected epithelial inclusion cyst Epidermal cyst of neck Abscess of groin, left Nicotine dependence, cigarettes, uncomplicated Surgical History History of removal of cyst (~09/13/23) H/O excision of mass History of esophagogastroduodenoscopy (EGD) History of epidermal inclusion cyst excision (~07/15/21) History of removal of cyst H/O excision of mass (11/14/18) H/O colonoscopy (2015) History of umbilical hernia repair (03/19/19) Family History Father Colon cancer Skin cancer Mother Skin cancer Brother Stomach cancer, Onset Age: 57 Social History Alcohol intake: former Patient Tobacco Use Status: Current everyday Tobacco user Tobacco use type: Cigarette Cigarette Packs Per Day: 0.5 Cigarettes Per Day: 10 Years Smoked: 41 (onset 14) Review of Systems Eyes Reports no additional complaints ENT Reports no additional complaints Card Reports as per HPI Resp Reports as per HPI GI Reports no additional complaints Reports as per HPI Musc Reports no additional complaints Neuro Reports no additional complaints Psych Reports no additional complaints Endo Reports no additional complaints Physical Exam Const General: cooperative, comfortable, no acute distress, well developed, alert and awake Orientation/consciousness: patient oriented x3 Limitations: language barrier HEENT Head: Yes normal to inspection, Yes normocephalic and Yes atraumatic Ears: hearing grossly normal bilaterally Eyes General: appearance normal, both eyes and all related structures Neck Neck: Yes normal visual inspection and Yes trachea midline Chest Chest palpation & inspection: normal inspection of the chest Resp Effort & Inspection: normal respiratory effort and able to speak in complete sentences Cardio Rate: regular rate GI Inspection: Yes normal to inspection General: Yes no CVA tenderness Back/Spine/Pelvis Back: no CVA tenderness Skin General skin exam: no rashes or lesions noted Neuro General: patient oriented x3 Extrem General: Yes normal to inspection Psych Appearance: grossly normal and well kempt Mental Status: mental status grossly normal Speech and movement: Normal speech and movement present and Clear speech present Affect: normal affect Attitude: cooperative Thought process: Normal thought process present Thought content: Normal thought content present Insight: Fair insight present (Psych) Judgement: Fair judgement present (Psych) Office Procedures Post Void Residual Post Residual Void Post Void Residual (PVR): 0 58738-[id number] Void Residual by ultrasound Results AMB Urinalysis, Automated UA Leukoctes 0 Andrés/uL Last Edit by VINEET Ybarra on 04/17/25 09:50 UA Nitrite Negative Last Edit by VINEET Ybarra on 04/17/25 09:50 UA Urobilinogen 0.2 mg/dL Last Edit by VINEET Ybarra on 04/17/25 09:5 0 UA Protein 0 mg/dL Last Edit by VINEET Ybarra on 04/17/25 09:50 UA pH 6.5 Last Edit by VINEET Ybarra on 04/17/25 09:50 UA Blood 10 Dante/uL Last Edit by VINEET Ybarra on 04/17/25 09:50 UA Specific [place] 1.010 Last Edit by VINEET Ybarra on 04/17/25 09: 50 UA Ketone Negative Last Edit by VINEET Ybarra on 04/17/25 09:50 UA Bilirubin 0 mg/dL Last Edit by VINEET Ybarra on 04/17/25 09:50 UA Glucose 0 mg/dL Last Edit by VINEET Ybarra on 04/17/25 09:50 Results Reviewed Results Reviewed: Laboratory Last Values Urine pH (Auto) 6.5 04/17/25 09:49 Specific [place] (Auto) 1.010 04/17/25 09:49 Urine Protein (Auto) 0 mg/dL 04/17/25 09:49 Glucose (UA)(Auto) 0 mg/dL 04/17/25 09:49 Urine Ketones (Auto) Negative 04/17/25 09:49 Urine Blood (Auto) 10 Dante/uL 04/17/25 09:49 Urine Nitrite (Auto) Negative 04/17/25 09:49 Urine Bilirubin (Auto) 0 mg/dL 04/17/25 09:49 Urine Urobilinogen (Auto) 0.2 mg/dL 04/17/25 09:49 Leukocyte Esterase (Auto) 0 Andrés/uL 04/17/25 09:49 Assessment & Plan Assessment & Plan (1) BPH (benign prostatic hyperplasia): Code(s): N40.0 - Benign prostatic hyperplasia without lower urinary tract symptoms Category: Medical (2) Chronic interstitial cystitis: Code(s): N30.10 - Interstitial cystitis (chronic) without hematuria Category: Medical (3) Microscopic hematuria: Code(s): R31.29 - Other microscopic hematuria Category: Medical (4) Nicotine dependence: Code(s): F17.200 - Nicotine dependence, unspecified, uncomplicated Category: Medical Plan In office urinalysis results reviewed with the patient today; as noted above; will send for urine cytology. PVR 0 mL Continue VESIcare. We discussed importance of obtaining PSA as discussed. ERIKA was offered however deferred. He currently denies any bothersome urinary issues or concerns. He reports be happy with current voiding parameters. Will continue with surveillance monitoring. We did discussed importance of limiting bladder triggers/irritants. We also discussed the importance of limiting/quitting nicotine dependence for overall health and well-being. Follow-up in 1-2 months with PSA; or sooner with any issues, concerns, and or questions. Orders: Orders AMB Post Void Residual by ultrasound Today N40.0 - Benign prostatic hyperplasia without lower urinary tract symptoms Urine Cytology Today R31.29 - Other microscopic hematuria AMB Urinalysis Automated Today Z13.9 - Encounter for screening, unspecified Medications: Discontinued doxycycline monohydrate Discontinued Reason: Patient Completed Course 100 mg PO BID 20 caps 0RF amoxicillin-pot clavulanate 875-125 mg Discontinued Reason: Patient Completed Course 1 tab PO BID 5 days 10 tabs 0RF Patient Instructions: The patient had an opportunity to ask questions regarding the treatment plan. All questions were answered. Physical exam, labs, and imaging were discussed and reviewed in detail. As well as risks, benefits, and discussion of treatment choices. No major barriers to understanding were identified. The patient expressed understanding and agreement with the above treatment plan. The patient was made aware they should contact our office by phone for worsening of their current condition, the appearance of new symptoms, or with any questions or concerns. Compliance is encouraged with any medications and follow up testing that is ordered. It is a privilege to be allowed the opportunity to participate in? your urological care.? Again, if you have any questions or concerns If you have any questions or concerns please do not hesitate to contact me. The office is [phone]. This note is constructed using voice recognition software. While every effort has been made to ensure accuracy window covering sales consultant errors may have been included. Yours sincerely, MISSY Luu Coding Level of Care Code Est Pt Level 3 (88100) Complex EM visit Add On G2211 Diagnoses BPH (benign prostatic hyperplasia) N40.0 Chronic interstitial cystitis N30.10 Microscopic hematuria R31.29 Nicotine dependence F17.200 CPT Codes Post Residual Void - PVR CPT Code: 93632-Samo Void Residual by ultrasound ([id number])
--- OUTSIDE RECORDS SUMMARY | 2025-04-17 09:42 | XMS_ITS | Clinical Summary ---
Author Organization [address] [place] [address] Address [address] [place] [address] Phone Care Team Providers Care Analytics Intern Name Role Phone Physician, Pcp Unknown Primary [...] Head ache 03/05/2009 Tobacco use disorder 03/05/2009 Immunizations Name Administration Dates Next Due Influenza trivalent, with pr eservative (Fluzone; Afluria) 6mo and older 06/11/2014,07/04/2013,07/20/2012 Tdap Tetanus diptheria acell ular pertussis (Boostrix; Adacel) 7yo and older 03/22/2013 Surgical History Surgery Date Site/Laterality Comments OTHER SURGICAL HISTORY - PROCEDURE: HISTORICAL EAR SURGERY; COMMENT: TM tubes - bilateral OTHER SURGICAL HISTORY PROCEDURE: NC ESOPHAGOSCOPY FLEXIBLE TRANSORAL DIAGNOSTIC; COMMENT: GERD resolved after H.pylori treatment COLONOSCOPY 06/17/2010 PROCEDURE: NC COLONOSCOPY STOMA DX INCLUDING COLLJ SPEC SPX [...] 1983 Zoster Vaccines (1 of 2) 2014 RSV Immunization Adult Patients (1 - Risk 60-74 years 1-dose series) 2024 Colorectal Cancer Screening: Colonoscopy 07/30/2024 HIV Screening 07/30/2024 Hepatitis C Screening 07/30/2024 Lung Cancer Screening (Low Dose CT) 07/30/2024 Social Influencers of Health Screening 07/30/2024 Depression Screening 08/14/2024 COVID-19 Vaccine ( season) 2025 Influenza Vaccine (#1) 2025 6, 06/11/2014, 07/04/2013, [...] mg/dL Blood Venous blood specimen / Unknown us Historical Provider LAB BLOOD ORDERABLES Juli vital Result from Last 3 Months or Most Recently Relevant to Health Maintenance Insurance [facility] MEDICAID ADVANTAGE [address] [place] [address] Care Teams Analytics Intern Relationship Specialty Start Date End Date Physician, Pcp Unknown PCP - General 07/30/24
--- OUTSIDE RECORDS SUMMARY | 2025-04-17 09:42 | XMS_ITS | Encounter Summary ---
Author Organization [employer] Address [address] [place] [address] Care Team Providers Care Supervisor Electric Name Role Phone Name, Ernst COPE Primary Care Provider [phone] Encounter Details Date Type Department Care Team ([facility] st Contact Info) Description 09/06/2023 Abstract [facility] [address] [place], [place] [id number] Name, MD Ernst [address] [place] [address] Social History Tobacco Use Types Packs/Day Years [...] Care Team (Late st Contact Info) Description 05/01/2025 11:30 AM EDT Office Visit [facility] [address] [place] [address] NameErnst MD [address] [place] [address] 08/28/2025 8:00 AM EST Office Visit [facility] [address] [place] [address] Jennifer Castaneda [address] [place] [address] documented as of this encounter Visit Diagnoses Not on filedocumented in this encounter Additional Health Concerns Assessment Noted Time PHQ-9 Depression Total Score: 1 10/06/19 23 9:13 AM EST documented as of this encounter Care Teams Supervisor Electric Relationship Specialty Start Date End Date Name, MD Ernst [address] [place] [id number] PCP - General Family Medicine 10/08/15 documented as of this encounter
--- OUTSIDE RECORDS SUMMARY | 2025-04-17 09:42 | XMS_ITS | Encounter Summary ---
Author Organization [employer] Address [address] [facility] [address], [place] [address] Care Team Providers Care Pineapple Plantation Manager Name Role Phone Name, Ernst COPE Primary Care Provider [phone] Reason for Visit * Reason Onset Date Comments Pre Op 09/08/2023 Encounter Details Date Type Department Care Team ([facility] Contact Info) Description 09/08/2023 Telephone [facility] [address] [place] [address] [phone] Name, MD Ernst [address] [place] [address] Pre Op Social History Tobacco Use Types [...] 09/08/2023 2:37 PM EST Return T/C to [facility] for below message pt. Was schedule for Pre -op apt. On Meghan verbally agreed and understood. Date of Surgery: 11/06/23 Surgical procedure being done: Green Light Laser Prostate incision Type of anesthesia: General Lab needed: if pcp sees necessary EKG: Yes Last surgeon note requested. Surgeon's name[facility] name: [facility] Surgeon's office number: [phone] opt 3 Surgeon's office fax number: [phone] Contact name (person you spoke with): Meghan * Telephone Encounter - Ryan Del Cid - 09/08/2023 10:50 AM EST Date of Surgery: 11/06/23 Surgical procedure being done: Green Light Laser Prostate incision Type of anesthesia: General Lab needed: Whatever pcp sees necessary EKG: No Surgeon's name: [facility] name: [facility] Surgeon's office number: [phone] opt 3 Surgeon's office fax number: [phone] Contact name (person you spoke with): Meghan documented in this encounter Plan of Treatment Upcoming Encounters Date Type Department Care Team (Late st Contact Info) Description 05/01/2025 11:30 AM EDT Office Visit [facility] [address] [place] [address] Name, MD Ernst [address] [place] [address] 08/28/2025 8:00 AM EST Office Visit [facility] ADULT DENTAL [address] [place] [address] Jennifer Castaneda [address] [place] [address] documented as of this encounter Visit Diagnoses Not on filedocumented in this encounter Additional Health Concerns Assessment Noted Time PHQ-9 Depression Total Score: 1 10/06/19 23 9:13 AM EST documented as of this encounter Care Teams Pineapple Plantation Manager Relationship Specialty Start Date End Date Name, MD Ernst [address] [place] [address] PCP - General Family Medicine 10/08/15 documented as of this encounter
--- OUTSIDE RECORDS SUMMARY | 2025-04-17 09:42 | XMS_ITS | Patient Health Record ---
Author Organization [employer] [facility] [facility] Address [address] [place] [address] Care Team Providers Care Electrical Machine Builder Name Role Phone Robert Ferrara Jr Unavailable Reason For Referral No Information Plan Of Treatment No Information
--- OUTSIDE RECORDS SUMMARY | 2025-04-17 09:42 | XMS_ITS | Encounter Summary ---
Author Organization [employer] Address [address] [place] [address] Care Team Providers Care Hydroelectric Plant Mechanical Engineer Name Role Phone Name, Ernst COPE Primary Care Provider [phone] Encounter Details Date Type Department Care Team (Late st Contact Info) Description 01/23/2023 Abstract [facility] MEDICINE [address] [place] [phone] NameErnst MD [address] [place] [address] Social History Tobacco Use Types Packs/Day Years [...] Description 05/01/2025 11:30 AM EDT Office Visit [facility] [address] [place] [address] [phone] Ernst Ramirez MD [address] [place] [address] 08/28/2025 8:00 AM EST Office Visit [facility] ADULT DENTAL [address] [place] [address] Jennifer Castaneda [address] [place] [address] documented as of this encounter Procedures Procedure Name Priority Date/Time Associated Diagnosis Comments COLONOSCOPY Routine 05/25/2022 12:47 PM EDT documented in this encounter Results * Colonoscopy (05/25/2022 12:47 PM EDT) Colonoscopy Normal Normal Narrative Meek Trippba - 05/25/2022 12:47 PM EDT Recommended 5 year follow up ( [facility]) us Historical Provider HEALTH MAINTENANCE Final Result documented in this encounter Visit Diagnoses Not on filedocumented in this encounter Additional Health Concerns Assessment Noted Time PHQ-9 Depression Total Score: 1 10/06/19 23 9:13 AM EST documented as of this encounter Care Teams Hydroelectric Plant Mechanical Engineer Relationship Specialty Start Date End Date Name, MD Ernst [address] [place] [address] PCP - General Family Medicine 10/08/15 documented as of this encounter
--- OUTSIDE RECORDS SUMMARY | 2025-04-17 09:42 | XMS_ITS | Encounter Summary ---
Author Organization [employer] [facility] Address [address] [place] [address] Care Team Providers Care Intake Manager Name Role Phone Name, Ernst COPE Primary Care Provider [phone] Encounter Details Date Type Department Care Team (Latest Contact Info) Description 04/24/2019 Abstract [facility] CONVERSIONS Dental, Provider, DDS Social History [...] Care Team ( st Contact Info) Description 05/01/2025 11:30 AM EDT Office Visit [facility] MEDICINE [address] [place] [address] NameErnst MD [address] [place] [address] 08/28/2025 8:00 AM EST Office Visit [facility] ADULT DENTAL [address] [place] [address] Freedmo Castanedaaris [address] [place] [address] documented as of this encounter Visit Diagnoses Not on filedocumented in this encounter Care Teams Intake Manager Relationship Specialty Start Date End Date NameErnst MD [address] [place] [address] PCP - General Family Medicine 10/08/15 documented as of this encounter
--- OUTSIDE RECORDS SUMMARY | 2025-04-17 09:42 | XMS_ITS | Clinical Summary ---
Author Organization [email or web address] Address [address] [place] [address] 7 [place] [address] Care Team Providers Care Head Charger Name Role Phone Name, Ernst COPE Primary Care Provider [phone] Allergies Active Allergy Reactions Criticality Noted Date [...] for smoking cessation. 100 lozenge 3 Active Additional Information Patient not taking.Reported on 02/27/2025 Spacer/Aero-Hold ing Chambers (OptiChamber Yenny) miscIndications: Influenza-like symptoms 1 each every 4 (four) hours if needed (asthma). 1 each 3 Active Additional Information Patient not taking.Reported on 02/27/2025 Blood Pressure Monitoring (Omron 3 Series BP Monitor) device USE TO CHECK BLOOD PRESSURE TWICE DAILY 3 Active pravastatin (Pravachol) 20 MG tabletIndication s:High cholesterol Take 1 tablet (20 mg) by mouth in the morning. 30 tablet 11 3 Active Additional Information Patient not taking.Reported on 02/27/2025 diphenhydrAMINE (BENADryl) 25 MG capsule Take 1 capsule (25 mg) by mouth every 4 (four) hours if needed for itching. 30 capsule 3 Active Additional Information Patient not taking.Reported on 02/27/2025 ciclopirox (Loprox) 0.77 % cream Apply topically 2 times daily. 30 g 1 3 Active Additional Information Patient not taking.Reported on 02/27/2025 EPINEPHrine (Epipen) 0.3 MG/0.3ML injection syringe Inject 0.3 mL (0.3 mg) as directed 1 (one) time if needed for anaphylaxis for up to 1 dose. Inject into upper leg. Call 911 after use. 1 each 1 3 Active Additional Information Patient not taking.Reported on 02/27/2025 famotidine (Pepcid) 40 MG tablet Take 40 mg by mouth at bedtime. 4 Active oxybutynin XL (Ditropan-XL) 10 MG 24 hr tablet TAKE 1 TABLET ORALLY DAILY FOR 90 DAYS 4 Active clobetasol (Temovate) 0.05 % ointmentIndicati ons:Granuloma annulare Apply topically 2 times daily. 30 g 2 4 Active Additional Information Patient not taking.Reported on 02/27/2025 gabapentin (Neurontin) 100 MG capsule Take 1 capsule (100 mg) by mouth at bedtime. 30 capsule 5 Active Additional Information Patient not taking.Reported on 02/27/2025 albuterol 108 (90 Base) MCG/ACT inhalerIndicatio ns:ANA (obstructive sleep apnea) Inhale 2 puffs every 4 (four) hours if needed for wheezing or shortness of breath. 18 g 1 5 10/03/19 26 Active melatonin 5 MG tablet On tab at bedtime 30 tablet 3 5 Active Additional Information Patient not taking.Reported on 02/27/2025 diclofenac (Cataflam) 50 MG tabletIndication s:Pain of right heel Take 1 tablet (50 mg) by mouth 3 times daily. 30 tablet 5 03/07/20 26 Active Active Problems Problem Noted Date Diagnosed Date Pain of right heel 03/07/2025 Missing teeth, acquired 02/12/2025 Open margin on tooth sabianist 02/12/2025 Dental root caries 02/12/2025 Abscess of groin, left 01/03/2024 Acid reflux [...] 06/22/2016 Prostatism 01/13/2016 Overview (10/06/2022): Follows at [facility] urology Polyp of colon 01/13/2016 Overview (10/06/2022): Follow at [facility] GI. Last colonoscopy 06/04. Had benign polyp [...] Encounters Date Type Department Care Team Description 04/10/2025 8:00 AM EDT Office Visit [facility] ADULT DENTAL [address] [place] [address] Ta Doherty, DMD 03/07/2025 2:20 PM EDT Office Visit [facility] WALK-IN [address] [address] Teresa Upton MD Pain of right heel 03/07/2025 Travel 03/07/2025 Telephone [facility] MEDICINE [address] [place] [address] Ernst Ramirez MD referral 02/27/2025 11:00 AM EDT [facility] [address] [address] Jania Ramirez DO Scrotal abscess (Primary Dx) 02/27/2025 8:30 AM EDT Office Visit [facility] ADULT DENTAL [address] [place] [address] Ta Doherty, DMD 02/27/[address] [facility] [address] [address] Jania Ramirez DO ER Follow-up 02/27/2025 Orders Only [facility] External Provider, [facility] 02/27/[address] [address] Ernst Ramirez MD RMV Form (I called the patient, regarding an application for a disabled parking placard. He stated that he is requesting a placard, because he has difficulty walking.) 02/27/2025 Travel 02/12/2025 11:00 AM EDT Office Visit [facility] ADULT DENTAL [address] [place] [address] Basia Govea Open margin on tooth sabianist (Primary Dx); Missing teeth, acquired; Dental root caries from Last 3 Months Immunizations Immunization Administration [...] Sign Reading Time Taken Comments Blood Pressure 148/79 03/07/2025 3:11 PM EDT Pulse 102 03/07/2025 3:11 PM EDT Temperature 36.3 C (97.3 F) 03/07/2025 3:11 PM EDT Respiratory Rate 20 03/07/2025 3:11 PM EDT Oxygen Saturation 97% 03/07/2025 3:11 PM EDT Inhaled Oxygen Concentration - - Weight 88.7 kg (195 lb 9.6 oz) 03/07/2025 3:11 P M EDT Height 167.6 cm (5' 6 ) 10/03/2024 11:17 AM EST Body Mass Index 31.57 10/03/2024 11:17 AM EST Plan of Treatment Upcoming Encounters Date Type Department Care Team (Late st Contact Info) Description 05/01/2025 11:30 AM EDT Office Visit [facility] MEDICINE [address] [place] [address] Name, MD Ernst [address] [place] [address] 08/28/2025 8:00 AM EST Office Visit [facility] ADULT DENTAL [address] [place] [address] Jennifer Castaneda [address] [place] [address] Health Maintenance Due Date Last Done Comments CT Colonography 1965 FIT DNA/Cologuard 1964 FIT 1965 FOBT 1965 HIV Screening 1965 Sigmoidoscopy 1965 Alcohol/Substance Use Screening 1976 Hepatitis C Screening 1982 Pneumococcal Vaccine: 50+ Years (1 of 2 - PCV) 1983 Zoster Vaccines (1 of 2) 2014 RSV Patients and Patients Aged 60 years or older (1 - Risk 60-74 years 1-dose series) 2024 Depression Monitoring 04/02/2025 10/03/2024, 025 COVID-19 Vaccine ( - season) 2025 Influenza Vaccine (#1) 2025 6, 06/11/2014, 06/11/2014, Additional history exists Dental Oral Exam 08/16/2025 02/12/2025, , 07/13/2023, Additional history exists Dental Prophylaxis 08/16/2025 02/12/2025, 1 10/02/2023, 02/01/2024, Additional history exists Disability Screening 10/03/2025 10/03/2024 SDOH Screening 10/03/2025 10/03/2024 Dental X-Ray: Bitewings 02/28/2026 02/28/20 25, 08/01/2024, 06/23/2023, Additional history exists Tobacco Screening 04/10/2026 04/10/2025 Dental X-Ray: Full Mouth 05/11/2026 04/15/2021 Pos [...] Procedure Name Priority Date/Time Associated Diagnosis Comments 2 LO RESIN-BASED COMPOSITE - 2 SURF, POSTERIOR Routine 04/10/2025 8:00 AM EDT GRAM STAIN RESULT (NON ORDERABLE) Routine 02/27/2025 7:41 PM EDT US SCROTUM Routine 02/27/2025 6:08 PM EDT CBC WITH AUTO DIFFERENTIAL Routine 02/27/2025 12:42 PM EDT COMPREHENSIVE METABOLIC PANEL Routine 02/27/2025 12:42 PM EDT BITEWING - SINGLE RADIOGRAPHIC IMAGE Routine 02/27/2025 8:30 AM EDT INTRAORAL - PERIAPICAL FIRST RADIOGRAPHIC IMAGE Routine 02/27/2025 8:30 AM EDT PALLIATIVE (EMERGENCY) TREATMENT OF DENTAL PAIN - MINOR PROCEDURE Routine 02/27/2025 8:30 AM EDT PERIODIC ORAL EVALUATION - ESTABLISHED PATIENT Routine 02/12/2025 11:00 AM EDT ORAL HYGIENE INSTRUCTIONS Routine 02/12/2025 11:00 AM EDT PROPHYLAXIS - ADULT Routine 02/12/2025 1 1:00 AM EDT LIPID PANEL, STANDARD Routine 10/12/2022 8:17 AM EST Screening for cholesterol level HM COLONOSCOPY Routine 05/25/2022 12:47 PM EDT from Last 3 Months or Most Recently Relevant to Health Maintenance Results * Gram Stain Result (02/27/2025 7:41 PM EDT) 02/27/2025 7:41 PM EDT 02/27/2025 7:44 PM EDT Comment:Scrotum Narrative [facility] - 03/02/2025 9:45 AM EDT scrotum Gram stain results: 2+ polys 1+ epithelial cells 2+ red blood cells No organisms seen scrotum Corynebacterium species Quant Org ID 1+ Susc N/A Susceptibility not routinely performed on this isolate. Specimen Source: Scrotum us Generic External Data Provider HISTORICAL/NON OR DERABLE LABS Final Result [facility] [address] [place] [phone] * US Scrotum (02/27/2025 6:08 PM EDT) Anatomical Region Laterality Modality Body Ultrasound 02/27/2025 6:08 PM EDT Narrative 02/27/2025 6:10 PM EDT [address] [address] Ultrasound Report Signed Patient: Magdy Bronson MR#: [id number] : 1965 Acct:[id number] Age/Sex: 59 / M ADM Date: 02/27/25 Loc: HO.ED Attending Dr: Ordering Physician: Tommie Valladares MD Date of Service: 02/27/25 Procedure(s): US scrotum Accession Number(s): [id number] cc: Tommie Valladares MD; Name,Ernst COPE CLINICAL HISTORY: right sided pain? abscess US Scrotum with Doppler Comparison: None provided Findings: Right testicle normal echotexture, 3.8 x 1.8 x 2.5 cm. Left testicle normal echotexture, 3.7 x 2 x 2.8 cm. There is blood flow of the bilateral testicles. Questionable mild increase of blood flow of the bilateral testicles. There are bilateral epididymal cysts. There are calcifications of the right epididymal head. Prominent blood vessel of the right side of scrotum. Small bilateral hydrocele, left greater than right. IMPRESSION: No evidence of torsion. Questionable mild increase of blood flow of both testicles. Orchitis can not be excluded. Small bilateral hydrocele, left greater than right. Additional findings as above. This document has been electronically signed by: Raheel Thompson MD on 02/27/2025 18:08:53 Dictated By: Raheel Thompson MD Signed By: <Electronically signed by Raheel Thompson MD in OV> 02/27/251809 DD/ 07 TD/TT: 02/27/251807 Retail Reset Merchandiser: Procedure Note Donotuseinterpreter, Image - 02/27/[address] [address] Ultrasound Report Signed Patient: Magdy BronsonMR#: [id number] : 1965Acct:[id number] Age/Sex: 59 / MADM Date: 02/27/25 Loc: HO.ED Attending Dr: Ordering Physician: Tommie Valladares MD Date of Service: 02/27/25 Procedure(s): US scrotum Accession Number(s): [id number] cc: Tommie Valladares MD; Name,Ernst COPE CLINICAL HISTORY: right sided pain? abscess US Scrotum with Doppler Comparison: None provided Findings: Right testicle normal echotexture, 3.8 x 1.8 x 2.5 cm. Left testicle normal echotexture, 3.7 x 2 x 2.8 cm. There is blood flow of the bilateral testicles. Questionable mild increase of blood flow of the bilateral testicles. There are bilateral epididymal cysts. There are calcifications of the right epididymal head. Prominent blood vessel of the right side ofscrotum. Small bilateral hydrocele, left greater than right. IMPRESSION: No evidence of torsion. Questionable mild increase of blood flow of both testicles. Orchitis can not be excluded. Small bilateral hydrocele, left greater than right. Additional findings as above. This document has been electronically signed by: Raheel Thompson MD on 02/27/2025 18:08:53 Dictated By: Raheel Thompson MD Signed By: <Electronically signed by Raheel Thompson MD in OV> 02/27/251809 DD/ 07 TD/TT: 02/27/251807 Retail Reset Merchandiser: us [facility] External Provider IMG US PROCEDURES Edited Result - Final * (ABNORMAL) CBC auto differential (02/27/2025 12:42 PM EDT) White Blood Count 8.6 4.8 - 10.8 X10*3/uL [facility] Red Blood Count 5.17 4.60 - 5.80 X10*6/uL [facility] Hemoglobin 16.0 14.0 - 18.0 g/dl [facility] Hematocrit 48.1 42.0 - 52.0 % [facility] Mean Corpuscular Volume 93.0 80.0 - 98.0 fL [facility] Mean Corpuscular Hemoglobin 30.9 27.0 - 33.0 pg [facility] Mean Corpuscular HGB Conc 33.3 31.0 - 36.0 g/dl [facility] Red Cell Distribution Width 13.4 11.0 - 16.0 % [facility] Platelet Count 213 160 - 400 X10*3/uL [facility] Mean Platelet Volume 10.3 9.4 - 12.4 fL [facility] Neutrophils Percent Auto 73.2(H) 45 - 73 % [facility] Imm Gran Pct Auto 0.6(H) 0.0 - 0.4 % [facility] Lymphocytes Percent Auto 16.8(L) 20 - 40 % [facility] Monocytes Percent Auto 6.8 2 - 11 % [facility] Eosinophils Percent Auto 2.0 0 - 4 % [facility] Basophils Percent Auto 0.6 0 - 2 % [facility] NRBC Pct Auto 0.0 0.0 - 0.2 /100WBC [facility] Neutrophils Absolute Auto 6.3 2.0 - 8.3 x10*3/uL [facility] Imm Gran Abs Auto 0.05(H) 0.00 - 0.03 X10*3/uL [facility] Lymphocytes Absolute Auto 1.5 1.2 - 4.9 X10*3/uL [facility] Monocytes Absolute Auto 0.6 0.1 - 1.2 X10*3/uL [facility] Eosinophils Absolute Auto 0.2 0.0 - 0.4 X10*3/uL [facility] Basophils Absolute Auto 0.1 0.0 - 0.2 X10*3/uL [facility] NRBC Abs Auto 0.000 0.0 - 0.012 X10*3/uL [facility] 02/27/2025 12:4 2 PM EDT 02/27/2025 12:45 PM EDT us Generic External Data Provider LAB BLOOD ORDERAB LES Final Result [facility] [address] [place] [phone] * (ABNORMAL) Comprehensive Metabolic Panel (02/27/2025 12:42 PM EDT) Sodium 140 135 - 145 mmol/L [facility] Potassium 4.1 3.3 - 5.1 mmol/L [facility] Chloride 108 96 - 108 mmol/L [facility] Carbon Dioxide 25 22 - 29 mmol/L [facility] Anion Gap 11(L) 12 - 20 [facility] Urea Nitrogen (BUN) 15 9 - 16 mg/dL [facility] Creatinine, Serum 0.72 0.5 - 1.4 mg/dL [facility] Creatinine Clr Calc Pharmacy 113.5 [facility] Comment:eGFR (calculated fro m the MDRD study equation) and eCrCl(calculated from the Cockcroft-Gault equation) are based ondifferent parameters and may not yield comparable results.If eCrCl result is absurd, please check patient'sheight/weight. Estimated Glomerular Filt Rate >60 [facility] Comment:Chronic Kidney Disea se: Estimated GFR < 60 mL/min/1.59s7Amfsnu Kidney Disease: Estimated GFR < 15 mL/min/1.73m2 Glucose 91 60 - 115 mg/dL [facility] Calcium 9.0 8.4 - 10.2 mg/dL [facility] Bilirubin, Total 0.5 0.0 - 1.0 mg/dL [facility] Aspartate Amino Transferase 20 5 - 37 U/L [facility] Alanine Aminotransferase 23 0 - 40 U/L [facility] Total Protein 6.8 6.5 - 8.0 g/dL [facility] Albumin Level 4.5 3.5 - 5.0 g/dL [facility] Alkaline Phosphatase 68 39 - 117 U/L [facility] 02/27/2025 12:4 2 PM EDT 02/27/2025 12:45 PM EDT us Generic External Data Provider LAB BLOOD ORDERAB LES Final Result [facility] [address] [place] [address] [phone] * (ABNORMAL) Lipid Panel, Standard (10/12/2022 8:17 AM EST) Cholesterol, Total 228(H) <200 mg/dL [facility] HDL Cholesterol 35(L) > OR = 40 mg/dL [facility] Triglycerides 211(H) <150 mg/dL [facility] Comment: If a non-fasting specimen was collected, consider repeat triglyceride testing on a fasting specimen if clinically indicated. Clover et al. J. of Clin. Lipidol. 2015;9:129-169. LDL Cholesterol 155(H) mg/dL (calc) [facility] Comment: Reference range: <100 Desirable range <100 mg/dL for primary prevention; <70 mg/dL for patients with CHD or diabetic patients with > or = 2 CHD risk factors. LDL-C is now calculated using the Bora-Tasneem calculation, which is a validated novel method providing better accuracy than the Friedewald equation in the estimation of LDL-C. Bora SS et al. SONY. 2013;310(19): 5803-4548 (http://education.[employer]/faq/ISR756) Chol/HDLC Ratio 6.5(H) <5.0 (calc) [facility] Non-HDL Cholesterol 193(H) <130 mg/dL (calc) [facility] Comment: For patients with diabetes plus 1 [...] BLOOD ORDERABLES Final Resul t [facility] [address] [place] [address] [facility] [address] , ([address]) [place] [address] * Colonoscopy (05/25/2022 12:47 PM EDT) Colonoscopy Normal Normal Narrative Chiquis Tripp - 05/25/2022 12:47 PM EDT Recommended 5 year follow up ( [facility]) us Historical Provider MD HEALTH MAINTENANCE Final Result from Last 3 Months or Most Recently Relevant to Health Maintenance Insurance [facility] , [address] [place] [address] DENTAL - [facility] Care Teams Head Charger Relationship Specialty Start Date End Date Name, MD Ernst [address] [place] [phone] PCP - General Family Medicine 10/08/15
--- OUTSIDE RECORDS SUMMARY | 2025-04-17 09:42 | XMS_ITS | Encounter Summary ---
Author Organization [employer] [facility] Address [address] [place] [address] Care Team Providers Care Manager Production Name Role Phone Name, Ernst COPE Primary Care Provider [phone] Encounter Details Date Type Department Care Team (Latest Contact Info) Description 04/07/2022 Abstract [facility] CONVERSIONS Dental, Provider, DDS Social History Tobacco [...] Description 05/01/2025 11:30 AM EDT Office Visit [facility] MEDICINE [address] [place] [address] NameErnst MD [address] [place] [address] 08/28/2025 8:00 AM EST Office Visit [facility] ADULT DENTAL [address] [place], [place] [phone] Freedom Castanedaaris [address] [place] [address] documented as of this encounter Visit Diagnoses Not on filedocumented in this encounter Care Teams Manager Production Relationship Specialty Start Date End Date NameErnst MD [address] [place] [address] PCP - General Family Medicine 10/08/15 documented as of this encounter
--- OUTSIDE RECORDS SUMMARY | 2025-04-17 09:42 | XMS_ITS | Encounter Summary ---
Author Organization [employer] [facility] Address [address] [place] [address] Care Team Providers Care Engineer Rf Deployment Name Role Phone Name, Ernst COPE Primary Care Provider [phone] Encounter Details Date Type Department Care Team (Latest Contact Info) Description 10/13/2020 Abstract [facility] CONVERSIONS Dental, Provider, DDS Social [...] Description 05/01/2025 11:30 AM EDT Office Visit [facility] MEDICINE [address] [place] [address] NameErnst MD [address] [place] [address] 08/28/2025 8:00 AM EST Office Visit [facility] ADULT DENTAL [address] [place], [place] [phone] Freedom Castanedaaris [address] [place] [address] documented as of this encounter Visit Diagnoses Not on filedocumented in this encounter Care Teams Engineer Rf Deployment Relationship Specialty Start Date End Date NameErnst MD [address] [place] [address] PCP - General Family Medicine 10/08/15 documented as of this encounter
== END 2025-04-17 10:12 | disposition home or self-care (01) ==
LOC: HO.HUSH 09:11
PROVIDERS: PCP Internal Medicine Geriatric Medicine; Visit Provider Nurse Practitioner Family
DX: N40.0 Benign prostatic hyperplasia without lower urinary tract symptoms (principal); N30.10 Interstitial cystitis (chronic) without hematuria; R31.29 Other microscopic hematuria; F17.200 Nicotine dependence, unspecified, uncomplicated; Z13.9 Encounter for screening, unspecified
CPT/HCPCS: 99213; G2211

== ENCOUNTER 2025-04-24 06:42 | Outpatient (REF) | payer OTHER, SELFPAY ==
--- OUTSIDE RECORDS SUMMARY | 2025-04-24 06:47 | XMS_ITS | Patient Health Record ---
Author Organization [facility] Address [address] [place] [address] Care Team Providers Care Cap Jewel Plate Assembler Name Role Phone Robert Ferrara Jr Unavailable [phone] Reason For Referral No Information Plan Of Treatment No Information
--- OUTSIDE RECORDS SUMMARY | 2025-04-24 06:47 | XMS_ITS | Encounter Summary ---
Author Organization [employer] [facility] Address [address] [place] [address] Care Team Providers Care Hand Iii Cutter Name Role Phone Name, Ernst COPE Primary Care Provider [phone] Encounter Details Date Type Department Care Team (Latest Contact Info) Description 10/13/2020 Abstract [facility] CONVERSIONS Dental, Provider, DDS Social History Tobacco [...] Description 05/01/2025 11:30 AM EDT Office Visit [facility] MEDICINE [address] [place] [address] Ernst Ramirez MD [address] [place] [address] 08/28/2025 8:00 AM EST Office Visit [facility] ADULT DENTAL [address] [place], [place] [phone] Freedom Castanedaaris [address] [place] [address] documented as of this encounter Visit Diagnoses Not on filedocumented in this encounter Care Teams Hand Iii Cutter Relationship Specialty Start Date End Date NameErnst MD [address] [place] [address] PCP - General Family Medicine 10/08/15 documented as of this encounter
--- OUTSIDE RECORDS SUMMARY | 2025-04-24 06:47 | XMS_ITS | Clinical Summary ---
Author Organization [employer] Address [address] [place] [address] 7 [place] [address] Care Team Providers Care Framing Manager Name Role Phone Name, Ernst COPE Primary Care Provider [phone] Allergies Active Allergy Reactions Criticality Noted Date [...] teeth, acquired 02/12/2025 Open margin on tooth roman catholic 02/12/2025 Dental root caries 02/12/2025 Abscess of [...] 06/22/2016 Prostatism 01/13/2016 Overview (10/06/2022): Follows at [facility] urology Polyp of colon 01/13/2016 Overview (10/06/2022): Follow at [facility] GI. Last colonoscopy 06/04. Had benign polyp [...] Encounters Date Type Department Care Team Description 04/17/2025 Orders Only GENERIC EXTERNAL DATA DEPARTMENT Provider, Generic External Data 04/10/2025 8:00 AM EDT Office Visit [facility] ADULT DENTAL [address] [place] [address] Ta Doherty, DMD 03/07/2025 2:20 PM EDT Office Visit [facility] WALK-IN [address] [address] Teresa Upton MD Pain of right heel 03/07/2025 Travel 03/07/2025 Telephone [facility] MEDICINE [address] [place] [address] Ernst Ramirez MD referral 02/27/2025 11:00 AM EDT [facility] [address] [address] Jania Ramirez DO Scrotal abscess (Primary Dx) 02/27/2025 8:30 AM EDT Office Visit [facility] ADULT DENTAL [address] [place] [address] Ta Doherty, MARLEN 02/27/2025 [facility] [address] [address] Jania Ramirez DO ER Follow-up 02/27/2025 Orders Only [facility] External Provider, [facility] 02/27/[address] [address] Ernst Ramirez MD RMV Form (I called the patient, regarding an application for a disabled parking placard. He stated that he is requesting a placard, because he has difficulty walking.) 02/27/2025 Travel 02/12/2025 11:00 AM EDT Office Visit [facility] ADULT DENTAL [address] [place] [address] Basia Govea Open margin on tooth roman catholic (Primary Dx); Missing teeth, acquired; Dental root [...] Description 05/01/2025 11:30 AM EDT Office Visit [facility] MEDICINE [address] [place] [address] Name, MD Ernst [address] [place] [address] 08/28/2025 8:00 AM EST Office Visit [facility] ADULT DENTAL [address] [place] [address] Jennifer Castaneda [address] [place] [address] Health Maintenance Due Date Last Done Comments [...] Date/Time Associated Diagnosis Comments CYTOPATH-CELL ENHANCED Routine 5 5:30 PM EDT 2 LO RESIN-BASED COMPOSITE - 2 SURF, [...] to Health Maintenance Results * Cytopath-cell enhanced (04/17/2025 5:30 PM EDT) 04/17/2025 5:30 PM EDT 04/18/2025 8:30 AM EDT [facility] LABS - 04/21/2025 9:54 AM EDT ----- ------- Name: Magdy Smith Age/Sex: 59/M : 1965 Unit#: [id number] Attend Dr: [facility] Re04/17/25 Status: [facility] Disch: ----- ------- SPEC : [id number] RECD: 04/18/25 STATUS: NORI ESTRADA NUM: [id number] REED: 04/17/25-[address]: [facility] ENTERED: 04/18/25 SP TYPE: Cytology OTHR DR: Ernst Ramirez MD ORDERED: Cyto-enhanced Diagnosis Urine: -Negative for high-grade urothelial carcinoma. -Focal columnar cells present (see comment). Comment: Examination of monolayer preparation slide shows many red blood cells, scattered benign urothelial cells and squamous cells, and occasional inflammatory cells. Focal columnar cells are present, which may be seen in cystitis glandularis or low grade neoplasms. Clinical History Microscopic hematuria Material Received Urine Gross Description Received is 63 cc of clear yellow fluid from which a ThinPrep slide is prepared. IHC S/NG Disclaimer NOTE: Unless otherwise stated, all tissue is formalin-fixed and paraffin-embedded. Some or all of the immunohistochemical tests reported herein may have been developed and their performance characteristics determined by [facility]. They have not been cleared or approved by the U.S. Food and Drug Administration (FDA). However, the FDA has determined that such clearance or approval is not necessary. This laboratory is certified under the Clinical Laboratory Improvement Amendments of 1988 (CLIA) as qualified to perform high complexity clinical laboratory testing. Copies To: [facility] [address] [place] [address] Dr. Haynes [address] [place] [address] [email or web address] CONTINUED ON NEXT PAGE ----- ------- Name: Magdy Smith Age/Sex: 59/M : 1965 Unit#: [id number] Attend Dr: [facility] Re04/17/25 Status: DEP REF Location: [facility] Disch: ----- ------- SPEC : [id number] RECD: 04/18/25 STATUS: NORI ESTRADA NUM: [id number] REED: 04/17/25 [facility] DR: [facility] ENTERED: 04/18/25 SP TYPE: Cytology OTHR DR: Ernst Ramirez MD ORDERED: Cyto-enhanced Copies To: (Continued) Ernst Ramirez MD [address] [id number] ----- ------- Signed (signature on file) Monica Leah 04/21/25 0954 ----- ------- END OF REPORT Generic External Data Provider LAB CYTOLOGY ORDE RABLES Final Result Performing Organization Address [facility] de Phone Number [facility] LABS [address] [place] [phone] * Gram Stain Result (02/27/2025 7:41 PM EDT) 02/27/2025 7:41 PM EDT 02/27/2025 7:44 PM EDT Comment:Scrotum Narrative [facility] LABS - 03/02/2025 9:45 AM EDT scrotum Gram stain results: 2+ polys 1+ epithelial cells 2+ red blood cells No organisms seen scrotum Corynebacterium species Quant Org ID 1+ [facility] N/A Susceptibility not routinely performed on this isolate. Specimen Source: Scrotum SHEEX External Data Provider HISTORICAL/NON OR DERABLE LABS Final Result Performing Organization Address [facility] de Phone Number [facility] [address] [place] [phone] * US Scrotum (02/27/2025 6:08 PM EDT) Anatomical Region Laterality Modality Body Ultrasound 02/27/2025 6:08 PM EDT Narrative 02/27/2025 6:10 PM EDT [address] [address] Ultrasound Report Signed Patient: Magdy Smith MR#: [id number] : 1965 Acct:[id number] Age/Sex: 59 / M ADM Date: 02/27/25 Loc: HO.ED Attending Dr: Ordering Physician: Tommie Valladares MD Date of Service: 02/27/25 Procedure(s): US scrotum Accession Number(s): [id number] cc: Tommie Valladares MD; Name,Ernst COPE CLINICAL [...] in OV> 02/27/251809 DD/ 07 TD/TT: 02/27/251807 Ice Cutter: Procedure Note Donotuseinterpreter, Image - 02/27/2025 [place] [address] Ultrasound Report Signed Patient: Magdy Smith#: [id number] : 1965Acct:[id number] Age/Sex: 59 / MADM Date: 02/27/25 Loc: HO.ED Attending Dr: Ordering Physician: Tommie Valladares MD Date of Service: 02/27/25 Procedure(s): US scrotum Accession Number(s): [id number] cc: Tommie Valladares MD; Name,Ernst COPE CLINICAL [...] in OV> 02/27/251809 DD/ 07 TD/TT: 02/27/251807 Ice Cutter: us [facility] External Provider IMG US PROCEDURES Edited Result - Final * (ABNORMAL) CBC auto differential (02/27/2025 12:42 PM EDT) White Blood Count 8.6 4.8 - 10.8 X10*3/uL [facility] Red Blood Count 5.17 4.60 - 5.80 X10*6/uL [facility] Hemoglobin 16.0 14.0 - 18.0 g/dl [facility] Hematocrit 48.1 42.0 - 52.0 % [facility] Mean Corpuscular Volume 93.0 80.0 - 98.0 fL [facility] Mean Corpuscular Hemoglobin 30.9 27.0 - 33.0 pg [facility] Mean Corpuscular HGB Conc 33.3 31.0 - 36.0 g/dl [facility] Red Cell Distribution Width 13.4 11.0 - 16.0 % [facility] Platelet Count 213 160 - 400 X10*3/uL [facility] Mean Platelet Volume 10.3 9.4 - 12.4 fL [facility] Neutrophils Percent Auto 73.2(H) 45 - 73 % [facility] Imm Gran Pct Auto 0.6(H) 0.0 - 0.4 % [facility] Lymphocytes Percent Auto 16.8(L) 20 - 40 % [facility] Monocytes Percent Auto 6.8 2 - 11 % [facility] Eosinophils Percent Auto 2.0 0 - 4 % [facility] Basophils Percent Auto 0.6 0 - 2 % [facility] NRBC Pct Auto 0.0 0.0 - 0.2 /100WBC [facility] Neutrophils Absolute Auto 6.3 2.0 - 8.3 x10*3/uL [facility] Imm Gran Abs Auto 0.05(H) 0.00 - 0.03 X10*3/uL [facility] Lymphocytes Absolute Auto 1.5 1.2 - 4.9 X10*3/uL [facility] Monocytes Absolute Auto 0.6 0.1 - 1.2 X10*3/uL [facility] Eosinophils Absolute Auto 0.2 0.0 - 0.4 X10*3/uL [facility] Basophils Absolute Auto 0.1 0.0 - 0.2 X10*3/uL [facility] NRBC Abs Auto 0.000 0.0 - 0.012 X10*3/uL [facility] 02/27/2025 12:4 2 PM EDT 02/27/2025 12:45 PM EDT us Generic External Data Provider LAB BLOOD ORDERAB LES Final Result [facility] [address] [place] [phone] * (ABNORMAL) Comprehensive Metabolic Panel (02/27/2025 12:42 PM EDT) Sodium 140 135 - 145 mmol/L [facility] Potassium 4.1 3.3 - 5.1 mmol/L [facility] Chloride 108 96 - 108 mmol/L [facility] Carbon Dioxide 25 22 - 29 mmol/L [facility] Anion Gap 11(L) 12 - 20 [facility] Urea Nitrogen (BUN) 15 9 - 16 mg/dL [facility] Creatinine, Serum 0.72 0.5 - 1.4 mg/dL [facility] Creatinine Clr Calc Pharmacy 113.5 [facility] Comment:eGFR (calculated fro m the MDRD study equation) and eCrCl(calculated from the Cockcroft-Gault equation) are based ondifferent parameters and may not yield comparable results.If eCrCl result is absurd, please check patient'sheight/weight. Estimated Glomerular Filt Rate >60 [facility] Comment:Chronic Kidney Disea se: Estimated GFR < 60 mL/min/1.67k1Fkyeyo Kidney Disease: Estimated GFR < 15 mL/min/1.73m2 Glucose 91 60 - 115 mg/dL [facility] Calcium 9.0 8.4 - 10.2 mg/dL [facility] Bilirubin, Total 0.5 0.0 - 1.0 mg/dL [facility] Aspartate Amino Transferase 20 5 - 37 U/L [facility] Alanine Aminotransferase 23 0 - 40 U/L [facility] Total Protein 6.8 6.5 - 8.0 g/dL [facility] Albumin Level 4.5 3.5 - 5.0 g/dL [facility] Alkaline Phosphatase 68 39 - 117 U/L [facility] 02/27/2025 12:4 2 PM EDT 02/27/2025 12:45 PM EDT us Generic External Data Provider LAB BLOOD ORDERAB LES Final Result [facility] [address] [place] [phone] * (ABNORMAL) Lipid Panel, Standard (10/12/2022 8:17 AM EST) Cholesterol, Total 228(H) <200 mg/dL [facility] [place] [facility] [employer] HDL Cholesterol 35(L) > OR = 40 mg/dL [facility] [place] [facility] [employer] Triglycerides 211(H) <150 mg/dL [facility] Comment: If a non-fasting specimen was collected, consider repeat triglyceride testing on a fasting specimen if clinically indicated. Clover et al. J. of Clin. Lipidol. 2015;9:129-169. LDL Cholesterol 155(H) mg/dL (calc) [facility] Comment: Reference range: <100 Desirable range <100 mg/dL for primary prevention; <70 mg/dL for patients with CHD or diabetic patients with > or = 2 CHD risk factors. LDL-C is now calculated using the Boris calculation, which is a validated novel method providing better accuracy than the Friedewald equation in the estimation of LDL-C. Bora SS et al. SONY. 2013;310(19): 0992-5755 (http://education.ThisLife/faq/BTZ623) Chol/HDLC Ratio 6.5(H) <5.0 (calc) [facility] Non-HDL Cholesterol 193(H) <130 mg/dL (calc) [facility] Comment: For patients with diabetes plus 1 major ASCVD risk factor, treating to a non-HDL-C goal of <100 mg/dL (LDL-C of <70 mg/dL) is considered a therapeutic option. Blood Venous blood specimen / Unknown 10/12/2022 8:17 AM EST 10/12/2022 8:18 AM EST Narrative [facility] - 10/13/2022 1:19 AM EST FASTING:YES FASTING: YES Ernst Name LAB BLOOD ORDERABLES Final Resul t [facility] [address], [place] [address] [facility] [address] [facility], ([address]) [place] [address] * Hm Colonoscopy (05/25/2022 12:47 PM EDT) Colonoscopy Normal Normal Narrative Chiquis Tripp - 05/25/2022 12:47 PM EDT Recommended 5 year follow up ( [facility]) Historical Provider HEALTH MAINTENANCE Final Result from Last 3 Months or Most Recently Relevant to Health Maintenance Insurance [facility] , [facility] [address] [place] [address] DENTAL - [facility] Care Teams Framing Manager Relationship Specialty Start Date End Date Name, MD Ernst [address] [place] [address] PCP - General Family Medicine 10/08/15
--- OUTSIDE RECORDS SUMMARY | 2025-04-24 06:47 | XMS_ITS | Encounter Summary ---
Author Organization [employer] Address [address] [facility] [address] [place] [address] Care Team Providers Care Tool And Production Planner Name Role Phone Name, Ernst COPE Primary Care Provider [phone] Encounter Details Date Type Department Care Team ([facility] st Contact Info) Description 09/06/2023 Abstract [facility] MEDICINE [address] [place], [place] [phone] Name, MD Ernst [address] [place] [address] Social History Tobacco Use Types Packs/Day Years [...] Description 05/01/2025 11:30 AM EDT Office Visit [facility] MEDICINE [address] [place] [address] NameErnst MD [address] [place] [address] 08/28/2025 8:00 AM EST Office Visit [facility] ADULT DENTAL [address] [place] [address] Jennifer Castaneda [address] [place] [address] documented as of this encounter Visit Diagnoses Not on filedocumented in this encounter Additional Health Concerns Assessment Noted Time PHQ-9 Depression Total Score: 1 10/06/19 23 9:13 AM EST documented as of this encounter Care Teams Tool And Production Planner Relationship Specialty Start Date End Date Name, MD Ernst [address] [place] [address] PCP - General Family Medicine 10/08/15 documented as of this encounter
--- OUTSIDE RECORDS SUMMARY | 2025-04-24 06:47 | XMS_ITS | Encounter Summary ---
Author Organization [employer] Address [address] [place] [address] Care Team Providers Care Dog Daycare Provider Name Role Phone Name, Ernst COPE Primary Care Provider [phone] Encounter Details Date Type Department Care Team (Late st Contact Info) Description 01/23/2023 Abstract [facility] MEDICINE [address] [place] [address] NameErnst MD [address] [place] [address] Social History Tobacco Use Types Packs/Day Years [...] Description 05/01/2025 11:30 AM EDT Office Visit [facility] MEDICINE [address] [place] [phone] Ernst Ramirez MD [address] [place] [address] 08/28/2025 8:00 AM EST Office Visit [facility] ADULT DENTAL [address] [place] [address] Jennifer Castaneda [address] [place] [address] documented as of this encounter Procedures Procedure Name Priority Date/Time Associated Diagnosis Comments COLONOSCOPY Routine 05/25/2022 12:47 PM EDT documented in this encounter Results * Colonoscopy (05/25/2022 12:47 PM EDT) Colonoscopy Normal Normal Narrative Meek Trippba - 05/25/2022 12:47 PM EDT Recommended 5 year follow up ( [facility]) us Historical Provider HEALTH MAINTENANCE Final Result documented in this encounter Visit Diagnoses Not on filedocumented in this encounter Additional Health Concerns Assessment Noted Time PHQ-9 Depression Total Score: 1 10/06/19 23 9:13 AM EST documented as of this encounter Care Teams Dog Daycare Provider Relationship Specialty Start Date End Date Name, MD Ernst [address] [place] [address] PCP - General Family Medicine 10/08/15 documented as of this encounter
--- OUTSIDE RECORDS SUMMARY | 2025-04-24 06:47 | XMS_ITS | Encounter Summary ---
Author Organization [facility] Address [address] [place] [address] Care Team Providers Care Mobile Application Tester Name Role Phone Name, Ernst COPE Primary Care Provider [phone] Encounter Details Date Type Department Care Team (Latest Contact Info) Description 04/07/2022 Abstract [facility] CONVERSIONS Dental, Provider, DDS Social [...] Description 05/01/2025 11:30 AM EDT Office Visit [facility] MEDICINE [address] [place] [address] Ernst Ramirez MD [address] [place] [address] 08/28/2025 8:00 AM EST Office Visit [facility] ADULT DENTAL [address] [place], [place] [phone] Freedom Castanedaaris [address] [place] [address] documented as of this encounter Visit Diagnoses Not on filedocumented in this encounter Care Teams Mobile Application Tester Relationship Specialty Start Date End Date NameErnst MD [address] [place] [address] PCP - General Family Medicine 10/08/15 documented as of this encounter
--- OUTSIDE RECORDS SUMMARY | 2025-04-24 06:47 | XMS_ITS | Clinical Summary ---
Author Organization [address] [place] [address] Address [address] [place] [address] Phone Care Team Providers Care Political Science Professor Name Role Phone Physician, Pcp Unknown Primary [...] tubes - bilateral OTHER SURGICAL HISTORY PROCEDURE: [place] ESOPHAGOSCOPY FLEXIBLE TRANSORAL DIAGNOSTIC; COMMENT: GERD resolved after H.pylori treatment COLONOSCOPY 06/17/2010 PROCEDURE: [place] COLONOSCOPY STOMA DX INCLUDING COLLJ SPEC SPX [...] Most Recently Relevant to Health Maintenance Insurance [facility] MEDICAID [employer]AGE [address] [place] [address] Care Teams Political Science Professor Relationship Specialty Start Date End Date Physician, Pcp Unknown PCP - General 07/30/24
--- OUTSIDE RECORDS SUMMARY | 2025-04-24 06:47 | XMS_ITS | Encounter Summary ---
Author Organization [employer] Address [address] [facility] 7 [place] [address] Care Team Providers Care Predictive Maintenance Specialist Name Role Phone Name, Ernst COPE Primary Care Provider [phone] Encounter Details Date Type Department Care Team ([facility] Contact Info) Description 04/17/2025 Orders Only GENERIC EXTERNAL DATA DEPARTMENT Provider, Generic External Data Social History Tobacco Use Types Packs/Day Years [...] Description 05/01/2025 11:30 AM EDT Office Visit [facility] [address] [place] [address] Name, MD Ernst [address] [place] [address] 08/28/2025 8:00 AM EST Office Visit [facility] ADULT DENTAL [address] [place] [address] LeonelJennifer fu [address] [place] [address] documented as of this encounter Procedures Procedure Name Priority Date/Time Associated Diagnosis Comments CYTOPATH-CELL ENHANCED Routine 04/17/2025 5:30 PM EDT documented in this encounter Results * Cytopath-cell enhanced (04/17/2025 5:30 PM EDT) 04/17/2025 5:30 PM EDT 04/18/2025 8:30 AM EDT [facility] - 04/21/2025 9:54 AM EDT ----- ------- Name: Arsen Smith Age/Sex: 59/M : 1965 Unit#: [id number] Attend Dr: Venessa Butts [facility] Re04/17/25 Status: [facility] Dis[facility]: ----- ------- SPEC : [id number] RECD: 04/18/25 STATUS: NAPOLEONCorey ESTRADA NUM: [id number] REED: 04/17/25-[address]: Venessa Butts [facility] ENTERED: 04/18/25 SP TYPE: Cytology OTHR DR: [...] developed and their performance characteristics determined by [facility]. They have not been cleared or approved by the U.S. Food and Drug Administration (FDA). However, the FDA has determined that such clearance or approval is not necessary. This laboratory is certified under the Clinical Laboratory Improvement Amendments of 1988 (CLIA) as qualified to perform high complexity clinical laboratory testing. Copies To: Venessa Butts [facility] [address] [place] [address] Dr. Haynes [address] [place] [address] [email or web address] CONTINUED ON NEXT PAGE ----- ------- Name: Arsen Smith Age/Sex: 59/M : 1965 Unit#: [id number] Attend Dr: Venessa Butts [facility] Re04/17/25 Status: DEP REF Location: [facility] Disch: ----- ------- SPEC : [id number] RECD: 04/18/25 STATUS: ONRI ESTRADA NUM: [id number] REED: 04/17/[address] [facility] [address]: Venessa Butts [facility] ENTERED: 04/18/25 SP TYPE: Cytology OTHR DR: Ernst Ramirez MD ORDERED: Cyto-enhanced Copies To: (Continued) Ernst Ramirez MD [address] [id number] ----- ------- Signed (signature on file) Monica Leah 04/21/25 0954 ----- ------- END OF REPORT us Generic External Data Provider LAB CYTOLOGY MILAGROS CISNEROS Final Result [facility] [address] [place] [phone] [phone] documented in this encounter Visit Diagnoses Not on filedocumented in this encounter Additional Health Concerns Assessment Noted Time PHQ-9 Depression Total Score: 13 10/03/ 025 12:08 PM EST documented as of this encounter Care Teams Predictive Maintenance Specialist Relationship Specialty Start Date End Date Name, MD Ernst [address] [place] [address] PCP - General Family Medicine 10/08/15 documented as of this encounter
--- OUTSIDE RECORDS SUMMARY | 2025-04-24 06:47 | XMS_ITS | Encounter Summary ---
Author Organization [employer] Address [address] [facility] [address], [place] [address] Care Team Providers Care Multiple Drum Sander Helper Name Role Phone Name, Ernst COPE Primary Care Provider [phone] Reason for Visit * Reason Onset Date Comments Pre Op 09/08/2023 Encounter Details Date Type Department Care Team ([facility] Contact Info) Description 09/08/2023 Telephone [facility] [address] [place] [address] [phone] Name, MD Ernst [address] [place] [address] Pre Op Social History Tobacco Use Types [...] 09/08/2023 2:37 PM EST Return T/C to [facility] for below message pt. Was schedule for Pre -op apt. On Meghan verbally agreed and understood. Date of Surgery: 11/06/23 Surgical procedure being done: Green Light Laser Prostate incision Type of anesthesia: General Lab needed: if pcp sees necessary EKG: Yes Last surgeon note requested. Surgeon's name: [facility] name: [facility] Surgeon's office number: [phone] opt 3 Surgeon's office fax number: [phone] Contact name (person you spoke with): Meghan * Telephone Encounter - Ryan Del Cid - 09/08/2023 10:50 AM EST Date of Surgery: 11/06/23 Surgical procedure being done: Green Light Laser Prostate incision Type of anesthesia: General Lab needed: Whatever pcp sees necessary EKG: No Surgeon's name: [facility] name: [facility] Surgeon's office number: [phone] opt 3 Surgeon's office fax number: [phone] Contact name (person you spoke with): Meghan documented in this encounter Plan of Treatment Upcoming Encounters Date Type Department Care Team (Late st Contact Info) Description 05/01/2025 11:30 AM EDT Office Visit [facility] [address] [place] [address] Name, MD Ernst [address] [place] [address] 08/28/2025 8:00 AM EST Office Visit [facility] ADULT DENTAL [address] [place] [address] Jennifer Castaneda [address] [place] [address] documented as of this encounter Visit Diagnoses Not on filedocumented in this encounter Additional Health Concerns Assessment Noted Time PHQ-9 Depression Total Score: 1 10/06/19 23 9:13 AM EST documented as of this encounter Care Teams Multiple Drum Sander Helper Relationship Specialty Start Date End Date Name, MD Ernst [address] [place] [address] PCP - General Family Medicine 10/08/15 documented as of this encounter
--- OUTSIDE RECORDS SUMMARY | 2025-04-24 06:47 | XMS_ITS | Encounter Summary ---
Author Organization [employer] Address [address] [place] [address] Care Team Providers Care Mechanical Applications Engineer Name Role Phone Name, Ernst COPE Primary Care Provider [phone] Encounter Details Date Type Department Care Team (Latest Contact Info) Description 04/24/2019 Abstract [facility] CONVERSIONS Dental, Provider, DDS Social History Tobacco [...] Description 05/01/2025 11:30 AM EDT Office Visit [facility] [address] [place] [address] NameErnst MD [address] [place] [address] 08/28/2025 8:00 AM EST Office Visit [facility] ADULT DENTAL [address] [place] [address] Freedmo Castanedaaris [address] [place] [address] documented as of this encounter Visit Diagnoses Not on filedocumented in this encounter Care Teams Mechanical Applications Engineer Relationship Specialty Start Date End Date NameErnst MD [address] [place] [phone] PCP - General Family Medicine 10/08/15 documented as of this encounter
[2025-04-24 08:13] LABS: Prostate Specific Antigen 1.36 ng/mL (<0.05-4.0)
== END 2025-04-24 06:43 | disposition home or self-care (01) ==
LOC: HO.LAB 06:42
PROVIDERS: PCP Internal Medicine Geriatric Medicine; Visit Provider Nurse Practitioner Family
DX: N40.0 Benign prostatic hyperplasia without lower urinary tract symptoms (principal); Z12.5 Encounter for screening for malignant neoplasm of prostate
CPT/HCPCS: 36415; 84153

== ENCOUNTER 2025-05-30 09:19 | Outpatient (REF) | payer OTHER, SELFPAY ==
--- NOTE | ~2025-05-30 | XR_ITS ---
EXAMINATION: XR FOOT 3 OR MORE VIEWS RIGHT HISTORY: PAIN COMPARISON: There are no prior studies available for comparison. FINDINGS: Three views of the right foot are submitted. Osseous mineralization is normal. There is no fracture or dislocation. The joint spaces are preserved. There is a small plantar calcaneal spur. The soft tissues are unremarkable. XR/XR foot RT min 3V IMPRESSION: Small plantar calcaneal spur. Otherwise unremarkable examination of the right foot. Electronically signed by: Ephraim Huerta MD 05/30/2025 09:32 AM EDT
== END 2025-05-30 09:20 | disposition home or self-care (01) ==
LOC: HO.HHCX 09:19
PROVIDERS: Visit Provider Family Medicine
DX: M79.671 Pain in right foot (principal); G89.29 Other chronic pain
CPT/HCPCS: 73630

== ENCOUNTER → 2025-05-30 09:20 | Outpatient (BNV) | payer OTHER, SELFPAY | PROVIDERS: Visit Provider Radiology Diagnostic Radiology | DX: M77.31 Calcaneal spur, right foot (principal) | CPT/HCPCS: 73630 ==

== ENCOUNTER 2025-07-05 10:16 | Outpatient (REF) | payer OTHER, SELFPAY ==
--- NOTE | ~2025-07-05 | XR_ITS ---
EXAMINATION: X-ray bilateral knees CLINICAL INFORMATION: Chronic pain COMPARISON: X-ray 06/01/2019 TECHNIQUE: Right knee 3 views. Left knee 3 views. FINDINGS: Left knee: No fracture. No significant joint space narrowing. No marginal osteophytes. Mild lateral patellar tilt on the sunrise view. No osseous erosion. No significant joint effusion. No abnormal soft tissue calcification. Right knee: No fracture. No significant joint space narrowing. No marginal osteophytes. Mild lateral patellar tilt on the sunrise view. No osseous erosion. No joint effusion. No abnormal soft tissue calcification. XR/XR knee LT 3V IMPRESSION: No acute findings Electronically signed by: Jordy Toussaint MD 07/07/2025 11:58 AM EST
--- NOTE | ~2025-07-05 | XR_ITS ---
EXAMINATION: X-ray bilateral knees CLINICAL INFORMATION: Chronic pain COMPARISON: X-ray 06/01/2019 TECHNIQUE: Right knee 3 views. Left knee 3 views. FINDINGS: Left knee: No fracture. No significant joint space narrowing. No marginal osteophytes. Mild lateral patellar tilt on the sunrise view. No osseous erosion. No significant joint effusion. No abnormal soft tissue calcification. Right knee: No fracture. No significant joint space narrowing. No marginal osteophytes. Mild lateral patellar tilt on the sunrise view. No osseous erosion. No joint effusion. No abnormal soft tissue calcification. XR/XR knee RT 3V IMPRESSION: No acute findings Electronically signed by: Jordy Toussaint MD 07/07/2025 11:58 AM EST
--- OUTSIDE RECORDS SUMMARY | 2025-07-05 09:00 | XMS_ITS | Encounter Summary ---
Author Organization [employer] Address [address] [facility] 7t [place] [address] Care Team Providers Care Convention Services Manager Name Role Phone Name, Ernst COPE Primary Care Provider [phone] Encounter Details Date Type Department Care Team ([facility] st Contact Info) Description 07/05/2025 9:00 AM EST Office Visit [facility] [address] [place], [place] [phone] Mane Christianson MD [address] [place] [address] Chronic pain of both knees (Primary Dx) Social History Tobacco Use Types Packs/Day Years Used Date Smoking Tobacco: Every Day Cigarettes Passive Smoke Exposure: Current Smokeless Tobacco: Never Alcohol Use Standard Drinks/Week [...] AM EDT documented as of this encounter Last Filed Vital Signs Vital Sign Reading Time Taken Comments Blood Pressure 126/75 07/05/2025 9:04 AM EST Pulse 64 07/05/2025 9:04 AM EST Temperature 36.4 C (97.6 F) 07/05/2025 9:04 AM EST Respiratory Rate 16 07/05/2025 9:04 AM EST Oxygen Saturation 97% 07/05/2025 9:04 AM EST Inhaled Oxygen Concentration - - Weight 87.2 kg (192 lb 3.2 oz) 07/05/2025 9:04 A M EST Height 167.6 cm (5' 6 ) 07/05/2025 9:04 AM EST Body Mass Index 31.02 07/05/2025 9:04 AM EST documented in this encounter Progress Notes * Mane Christianson MD - 07/05/2025 9:00 AM EST Subjective History was provided by the patient. Arsen Smith is a 60 y.o. male who presents for evaluation of worsening bilateral knee pain. States pain has been waxing and waning for several years, but had gotten worse in the last few months. 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 Denies any significant swelling. Recently seen for right foot pain due to plantar fasciitis and calcaneal spur. Doing plantar fasciastretching exercises as instructed. Patient has normal arch height. States he has been taking Ibuprofen, but has not helped much for his knee pain. Denies F/C. Denies redness or rash. Objective Vitals: 07/05/25 0904 BP: 126/75 BP Location: Left arm Patient Position: Sitting BP Cuff Size: Adult Pulse: 64 Resp: 16 Temp: 97.6 ??F (36.4 ??C) TempSrc: Oral SpO2: 97% Weight: 192 lb 3.2 oz (87.2 kg) Height: 5' 6 (1.676 m) Physical Exam Constitutional: General: He is not in acute distress. Appearance: Normal appearance. He is not ill-appearing, toxic-appearing or diaphoretic. HENT: Head: Normocephalic and atraumatic. Right Ear: External ear normal. Left Ear: External ear normal. Mouth/Throat: Pharynx: Oropharynx is clear. Eyes: Conjunctiva/sclera: Conjunctivae normal. Pulmonary: Effort: Pulmonary effort is normal. Musculoskeletal: General: Normal range of motion. Cervical back: Neck supple. Comments: Bilateral knees without deformity; negative anterior/posterior drawer's; no varus/valgus instability; negative Ewa's; negative Severo's; no effusion or edema Skin: General: Skin is warm and dry. Neurological: General: No focal deficit present. Mental Status: He is alert and oriented to person, place, and time. Psychiatric: Mood and Affect: Mood normal. Behavior: Behavior normal. Diagnoses and all orders for this visit: Chronic pain of both knees (Primary) - XR Knee 3 Views Left; Future - XR Knee 3 Views Right; Future - predniSONE (Deltasone) 20 MG tablet; Take 2 tablets (40 mg) by mouth Once per day for 5 days. Patient presents to [facility] due to ongoing bilateral knee pain for several years Symptom waxes and wanes, but has gotten worse lately Denies any preceding trauma or fall No F/C or rash No ligament instability or meniscal signs on exam No current edema or effusion States no significant improvement with Ibuprofen No clinical evidence of infection Will check X-ray of bilateral knees Trial of 5-day course of Prednisone 40mg Potential adverse effects of the medication reviewed Indications for UC/ER use reviewed Advised to contact the clinic if persistent or worsening symptoms documented in this encounter Plan of Treatment Upcoming Encounters Date Type Department Care Team (Late st Contact Info) Description 08/28/2025 8:00 AM EST Office Visit [facility] [address] [place] [address] Freedom Castanedaaris [address] [place] [address] 09/11/2025 9:15 AM EST Office Visit [facility] [address] [place] [address] Name, MD Ernst [address] [place] [address] Scheduled Orders Name Type Priority Associated Diagnoses Orde r Schedule XR Knee 3 Views Left Imaging Routine Chronic pain of both knees Expected: 07/05/2025, Expires: 07/05/2026 XR Knee 3 Views Right Imaging Routine Chronic pain of both knees Expected: 07/05/2025, Expires: 07/05/2026 documented as of this encounter Visit Diagnoses Diagnosis Chronic pain of both knees- Primary documented in this encounter Additional Health Concerns Assessment Noted Time PHQ-9 Depression Total Score: 13 025 12:08 PM EST documented as of this encounter Care Teams Convention Services Manager Relationship Specialty Start Date End Date NameErnst MD [address] [place] [address] PCP - General Family Medicine 10/08/15 documented as of this encounter
--- OUTSIDE RECORDS SUMMARY | 2025-07-05 10:21 | XMS_ITS | Encounter Summary ---
Author Organization [email or web address] Address [address] [facility] [address], [place] [address] Care Team Providers Care Clay Processing Labourer Name Role Phone Name, Ernst COPE Primary Care Provider [phone] Reason for Visit * Reason Onset Date Comments Pre Op 09/08/2023 Encounter Details Date Type Department Care Team ([facility] Contact Info) Description 09/08/2023 Telephone [facility] [address] [place] [address] [phone] Name, MD Ernst [address] [place] [address] Pre Op Social History Tobacco Use Types [...] 09/08/2023 2:37 PM EST Return T/C to [facility] for below message pt. Was schedule for Pre -op apt. On Meghan verbally agreed and understood. Date of Surgery: 11/06/23 Surgical procedure being done: Green Light Laser Prostate incision Type of anesthesia: General Lab needed: if pcp sees necessary EKG: Yes Last surgeon note requested. Surgeon's name: [facility] name: [facility] Surgeon's office number: [phone] opt 3 Surgeon's office fax number: [phone] Contact name (person you spoke with): Meghan * Telephone Encounter - Ryan Del Cid - 09/08/2023 10:50 AM EST Date of Surgery: 11/06/23 Surgical procedure being done: Green Light Laser Prostate incision Type of anesthesia: General Lab needed: Whatever pcp sees necessary EKG: No Surgeon's name: [facility] name: [facility] Surgeon's office number: [phone] opt 3 Surgeon's office fax number: [phone] Contact name (person you spoke with): Meghan documented in this encounter Plan of Treatment Upcoming Encounters Date Type Department Care Team (Late st Contact Info) Description 08/28/2025 8:00 AM EST Office Visit [facility] ADULT D[facility] [address] [place] [address] Freedom Castanedaaris [address] [place] [address] 09/11/2025 9:15 AM EST Office Visit [facility] [address] [place] [address] Name, MD Ernst [address] [place] [address] documented as of this encounter Visit Diagnoses Not on filedocumented in this encounter Additional Health Concerns Assessment Noted Time PHQ-9 Depression Total Score: 1 10/06/19 23 9:13 AM EST documented as of this encounter Care Teams Clay Processing Labourer Relationship Specialty Start Date End Date NameErnst MD [address] [place] [address] PCP - General Family Medicine 10/08/15 documented as of this encounter
--- OUTSIDE RECORDS SUMMARY | 2025-07-05 10:21 | XMS_ITS | Clinical Summary ---
Author Organization [employer] Address [address] [place] [address] 7[address] [place] [address] Care Team Providers Care Market Garden Worker Name Role Phone Name, Ernst COPE Primary Care Provider Allergies Active Allergy Reactions Criticality Noted Date Comments Bee Pollen 11/06/2023 Other Reaction(s): Unknown Iodinated Contrast Media Hives High 12/17/2015 Other Reaction(s): PATIENT DEVELOPED HIVES AND REDNESS ON THROAT AND CHEST Iodine 09/14/2022 Lovastatin 07/04/2013 dyspepsia Medications Spacer/Aero-Hol ding Chambers (OptiChamber Yenny) miscIndications :Influenza-like symptoms 1 each every 4 (four) hours if needed (asthma). 1 each 3 Active Additional Information Patient not taking.Reported on 02/27/2025 Blood Pressure Monitoring (Omron 3 Series BP Monitor) device USE TO CHECK BLOOD PRESSURE TWICE DAILY 3 Active EPINEPHrine (Epipen) 0.3 MG/0.3ML injection syringe Inject 0.3 mL (0.3 mg) as directed 1 (one) time if needed for anaphylaxis for up to 1 dose. Inject into upper leg. Call 911 after use. 1 each 1 3 Active Additional Information Patient not taking.Reported on 02/27/2025 albuterol 108 (90 Base) MCG/ACT inhalerIndicati ons:ANA (obstructive sleep apnea) Inhale 2 puffs every 4 (four) hours if needed for wheezing or shortness of breath. 18 g 1 5 10/03/19 26 Active predniSONE (Deltasone) 20 MG tabletIndicatio ns:Chronic pain of both knees Take 2 tablets (40 mg) by mouth Once per day for 5 days. 10 tablet 5 07/10/20 25 Active ibuprofen 800 MG tabletIndicatio ns:Chronic pain of right heel Take 1 tablet (800 mg) by mouth if needed in the morning and at bedtime for moderate pain or fever. 30 tablet 5 06/29/20 25 Active Problems Problem Noted Date Diagnosed Date Pain of right heel 03/07/2025 Missing teeth, acquired 02/12/2025 Open margin on tooth orthodox 02/12/2025 Dental root caries 02/12/2025 Abscess of [...] 06/22/2016 Prostatism 01/13/2016 Overview (10/06/2022): Follows [place] [facility] Polyp of colon 01/13/2016 Overview (10/06/2022): Follow at [facility]. Last colonoscopy 06/04. Had benign polyp [...] Encounters Date Type Department Care Team Description 07/05/2025 9:00 AM EST Office Visit [facility] [address] [address] Mane Christianson MD Chronic pain of both knees (Primary Dx) 07/05/2025 Travel 07/03/[address] [address] Ernst Ramirez MD Nurse Triage 05/30/2025 9:00 AM EDT Office Visit [facility] [address] [address] Mane Christianson MD Chronic pain of right heel (Primary Dx) 05/30/2025 Results Follow-Up [facility] [address] [address] Mane Christianson MD XR Foot 3+ Views Right 05/30/2025 Travel 05/02/[address] [address] Christi Hill RN 05/01/2025 11:30 AM EDT Office Visit [address] [address] Ernst Ramirez MD Pain of right heel (Primary Dx); Nicotine dependence, cigarettes, uncomplicated; Granuloma annulare; Vaccine refused by patient 05/01/2025 Travel 04/24/2025 Orders Only GENERIC EXTERNAL DATA DEPARTMENT Provider, Generic External Data 04/17/2025 Orders Only GENERIC EXTERNAL DATA DEPARTMENT Provider, Generic External Data 04/10/2025 8:00 AM EDT Office Visit [facility] ADULT DENTAL [address] [place] [address] Ta Doherty DMD from Last 3 Months Immunizations Immunization Administration Dates Next Due Influenza injectable quadriv alent IIV4 with preservative 06/22/2016 Influenza, IIV3, injectable 06/11/2014, 3,07/20/2012 Influenza, seasonal, injecta ble, preservative free 06/11/2014,07/04/2013,07/20/2012 Tdap 10/17/2018,03/22/2013 Social History Tobacco Use Types Packs/Day Years Used Date Smoking Tobacco: Every Day Cigarettes Passive Smoke Exposure: Current Smokeless Tobacco: Never Tobacco Cessation:Ready to Q [...] Mass Index 31.02 07/05/2025 9:04 AM EST Plan of Treatment Upcoming Encounters Date Type Department Care Team (Late st Contact Info) Description 08/28/2025 8:00 AM EST Office Visit [facility] ADULT DENTAL [address] [place] [address] Leonel, Jennifer [address] [place] [address] 09/11/2025 9:15 AM EST Office Visit [facility] MEDICINE [address] [place] [address] Name, MD Ernst [address] [place] [address] Health Maintenance Due Date Last Done Comments CT Colonography 1965 FIT DNA/Cologuard 1965 FIT 1965 FOBT 1965 HIV Screening 1965 Sigmoidoscopy 1965 Alcohol/Substance Use Screening 1976 Hepatitis C Screening 1982 Pneumococcal Vaccine: 50+ Years (1 of 2 - PCV) 1983 RSV Patients and Patients Aged 60 years or older (1 - Risk 50-74 years 1-dose series) 2014 Zoster Vaccines (1 of 2) 2014 Depression Monitoring 04/02/2025 10/03/2024, 025 COVID-19 Vaccine (1 - season) 2025 Influenza Vaccine (#1) 2025 6, 06/11/2014, 06/11/2014, Additional history exists Dental Oral Exam 08/16/2025 02/12/2025, , 07/13/2023, Additional history exists Dental Prophylaxis 08/16/2025 02/12/2025, 1 10/02/2023, 02/01/2024, Additional history exists Disability Screening 10/03/2025 10/03/2024 SDOH Screening 10/03/2025 10/03/2024 Dental X-Ray: Bitewings 02/28/2026 02/28/20 25, 08/01/2024, 06/23/2023, Additional history exists Dental X-Ray: Full Mouth 05/11/2026 04/15/2021 Pos tponed from 04/16/2024 (Insurance / Financial) Tobacco Screening 05/30/2026 05/30/2025 Colonoscopy 05/25/2027 05/25/2022 Colorectal Cancer Screening 05/25/2027 [...] Procedure Name Priority Date/Time Associated Diagnosis Comments XR FOOT 3+ VIEWS RIGHT Routine 05/30/2025 9:28 AM EDT Chronic pain of right heel PSA, TOTAL Routine 04/24/2025 6:56 AM EDT CYTOPATH-CELL ENHANCED Routine 04/17/2025 5:30 PM EDT 2 LO RESIN-BASED COMPOSITE - 2 SURF, POSTERIOR Routine 04/10/2025 8:00 AM EDT BITEWING - SINGLE RADIOGRAPHIC IMAGE Routine 02/27/2025 8:30 AM EDT PROPHYLAXIS - ADULT Routine 02/12/2025 1 1:00 AM EDT PERIODIC ORAL EVALUATION - ESTABLISHED PATIENT Routine 02/12/2025 11:00 AM EDT LIPID PANEL, STANDARD Routine 10/12/2022 8:17 AM EST Screening for cholesterol level HM COLONOSCOPY Routine 05/25/2022 12:47 PM EDT from Last 3 Months or Most Recently Relevant to Health Maintenance Results * XR Foot 3+ Views Right (05/30/2025 9:28 AM EDT) Anatomical Region Laterality Modality Lower Extremities, Foot Right Radiogra phic Imaging 05/30/2025 9:28 AM EDT Narrative 05/30/2025 9:34 AM EDT [address] [address] XRay Report Signed Patient: Magdy Bronson MR#: [id number] : 1965 Acct:[id number] Age/Sex: 60 / M ADM Date: 05/30/25 Loc: HO.HHCX Attending Dr: Mane Christianson MD Ordering Physician: Mane Christianson MD Date of Service: 05/30/25 Procedure(s): XR foot RT min 3V Accession Number(s): [id number] cc: Mane Christianson MD Reason for Exam: PAIN EXAMINATION: XR FOOT 3 OR MORE VIEWS RIGHT HISTORY: PAIN COMPARISON: There are no prior studies available for comparison. FINDINGS: Three views of the right foot are submitted. Osseous mineralization is normal. There is no fracture or dislocation. The joint spaces are preserved. There is a small plantar calcaneal spur. The soft tissues are unremarkable. XR/XR foot RT min 3V IMPRESSION: Small plantar calcaneal spur. Otherwise unremarkable examination of the right foot. Electronically signed by: Ephraim Huerta MD 05/30/2025 09:32 AM EDT RP Dictated By: Ephraim Huerta MD Signed By: <Electronically signed by Ephraim Huerta MD in OV> 05/30/25931 DD/ 7 TD/TT: 05/30/25929 Yeast Washer: Procedure Note Donotuseinterpreter, Image - 05/30/2025 [place] [address] XRay Report Signed Patient: Glynn Bronson#: [id number] : 1965Acct:[id number] Age/Sex: 60 / MADM Date: 05/30/25 Loc: HO.HHCX Attending Dr: Mane Christianson MD Ordering Physician: Mane Christianson MD Date of Service: 05/30/25 Procedure(s): XR foot RT min 3V Accession Number(s): [id number] cc: Mane Christianson MD Reason for Exam: PAIN EXAMINATION: XR FOOT 3 OR MORE VIEWS RIGHT HISTORY: PAIN COMPARISON: There are no prior studies available for comparison. FINDINGS: Three views of the right foot are submitted. Osseous mineralization is normal. There is no fracture or dislocation. The joint spaces are preserved. There is a small plantar calcaneal spur. The soft tissues are unremarkable. XR/XR foot RT min 3V IMPRESSION: Small plantar calcaneal spur. Otherwise unremarkable examination of the right foot. Electronically signed by: Ephraim Huerta MD 05/30/2025 09:32 AM EDT RP Dictated By: Ephraim Huerta MD Signed By: <Electronically signed by Ephraim Huerta MD in OV> 05/30/25931 DD/ 7 TD/TT: 05/30/25929 Yeast Washer: us Mane Christianson MD IMG XR PROCEDURES Final Result * PSA,Total (04/24/2025 6:56 AM EDT) Prostate Specific Antigen 1.36 <0.05 - 4.0 ng/mL [facility] Comment:PSA methodology: Gama Gleason i ChemiluminescentMicroparticle Immunoassay (CMIA) 04/24/2025 6:56 AM EDT 04/24/2025 6:56 AM EDT Generic External Data Provider LAB BLOOD ORDERAB LES Final Result [facility] [address] [place] [phone] * Cytopath-cell enhanced (04/17/2025 5:30 PM EDT) 04/17/2025 5:30 PM EDT 04/18/2025 8:30 AM EDT Narrative [facility] - 04/21/2025 9:54 AM EDT ----- ------- Name: Magdy Bronson Age/Sex: 59/M : 1965 Unit#: [id number] Attend Dr: Venessa Butts [facility]- Re04/17/25 Status: DEP REF Location: .LAB Disch: ----- ------- SPEC : [id number] RECD: 04/18/25 STATUS: NORI ESTRADA NUM: [id number] REED: 04/17/[address] [facility] [address]: Venessa Butts [facility] ENTERED: 04/18/25 SP TYPE: Cytology OTHR DR: [...] developed and their performance characteristics determined by [facility]. They have not been cleared or approved by the U.S. Food and Drug Administration (FDA). However, the FDA has determined that such clearance or approval is not necessary. This laboratory is certified under the Clinical Laboratory Improvement Amendments of 1988 (CLIA) as qualified to perform high complexity clinical laboratory testing. Copies To: Venessa Butts [facility] [address] [place] [address] [place] [address] [place] [address] [email or web address] CONTINUED ON NEXT PAGE ----- ------- Name: Magdy Bronson Age/Sex: 59/M : 1965 Unit#: [id number] Attend Dr: Venessa Butts [facility] Re04/17/25 Status: DEP REF Location: [facility] Disch: ----- ------- SPEC : [id number] RECD: 04/18/25 STATUS: NORI HAASBibi NUM: [id number] REED: 04/17/25-[address]: Venessa Butts [facility] ENTERED: 04/18/25 SP TYPE: Cytology OTHR DR: Ernst Ramirez MD ORDERED: Cyto-enhanced Copies To: (Continued) Ernst Ramirez MD [address] [address] ----- ------- Signed (signature on file) Monica Leah 04/21/25 0954 ----- ------- END OF REPORT Generic External Data Provider LAB CYTOLOGY MILAGROS CISNEROS Final Result [facility] [address] [place], [place] [phone] * (ABNORMAL) Lipid Panel, Standard (10/12/2022 8:17 AM EST) Cholesterol, Total 228(H) <200 mg/dL [facility] HDL Cholesterol 35(L) > OR = 40 mg/dL [facility] Triglycerides 211(H) <150 mg/dL [facility] Comment: If a non-fasting specimen was collected, consider repeat triglyceride testing on a fasting specimen if clinically indicated. Clover et al. J. of Clin. Lipidol. 2015;9:129-169. LDL Cholesterol 155(H) mg/dL (calc) [facility] Comment: Reference range: <100 Desirable range <100 mg/dL for primary prevention; <70 mg/dL for patients with CHD or diabetic patients with > or = 2 CHD risk factors. LDL-C is now calculated using the Bora-Boateng calculation, which is a validated novel method providing better accuracy than the Friedewald equation in the estimation of LDL-C. Bora SS et al. SONY. 2013;310(19): 1429-8982 (http://education.DCITS/faq/WVO136) Chol/HDLC Ratio 6.5(H) <5.0 (calc) [facility] Non-HDL Cholesterol 193(H) <130 mg/dL (calc) [facility] Comment: For patients with diabetes plus 1 major ASCVD risk factor, treating to a non-HDL-C goal of <100 mg/dL (LDL-C of <70 mg/dL) is considered a therapeutic option. Blood Venous blood specimen / Unknown 10/12/2022 8:17 AM EST 10/12/2022 8:18 AM EST Narrative [facility] - 10/13/2022 1:19 AM EST FASTING:YES FASTING: YES Ernst Ramirez MD LAB BLOOD ORDERABLES Final Resul t [facility] [address] [facility] [place] [address] [facility] [address] , ([address]) [place] [address] * Colonoscopy (05/25/2022 12:47 PM EDT) Colonoscopy Normal Normal Narrative Chiquis Tripp - 05/25/2022 12:47 PM EDT Recommended 5 year follow up ( [facility]) Historical Provider HEALTH MAINTENANCE Final Result from Last 3 Months or Most Recently Relevant to Health Maintenance [place] [address] [place] [address] , [address] [place] [address] [facility] Care Teams Market Garden Worker Relationship Specialty Start Date End Date Name, MD Ernst [address] [place] [address] PCP - General Family Medicine 10/08/15
--- OUTSIDE RECORDS SUMMARY | 2025-07-05 10:21 | XMS_ITS | Encounter Summary ---
Author Organization [employer] Address [address] [facility] 7t [place] [address] Care Team Providers Care Boat Patcher Plastic Name Role Phone Name, Ernst COPE Primary Care Provider [phone] Encounter Details Date Type Department Care Team (Latest Contact Info) Description 07/05/2025 Travel Social History Tobacco Use Types Packs/Day Years [...] Description 08/28/2025 8:00 AM EST Office Visit [facility] ADULT DENTAL [address] [place] [address] Leonel, Jennifer [address] [place] [address] 09/11/2025 9:15 AM EST Office Visit [facility] MEDICINE [address] [place] [address] Name, MD Ernst [address] [place] [address] documented as of this encounter Visit Diagnoses Not on filedocumented in this encounter Additional Health Concerns Assessment Noted Time PHQ-9 Depression Total Score: 13 025 12:08 PM EST documented as of this encounter Care Teams Boat Patcher Plastic Relationship Specialty Start Date End Date NameErnst MD [address] [place] [address] PCP - General Family Medicine 10/08/15 documented as of this encounter
--- OUTSIDE RECORDS SUMMARY | 2025-07-05 10:21 | XMS_ITS | Encounter Summary ---
Author Organization [employer] Address [address] [facility] 7t [place] [address] Care Team Providers Care Office Employee Name Role Phone Name, Ernst COPE Primary Care Provider [phone] Encounter Details Date Type Department Care Team ([facility] st Contact Info) Description 09/06/2023 Abstract [facility] MEDICINE [address] [place], [place] [phone] Name, MD Ernst [address] [place] [address] Social History Tobacco Use Types Packs/Day Years [...] Description 08/28/2025 8:00 AM EST Office Visit [facility] ADULT DENTAL [address] [place] [address] [place] Castanedaaris [address] [place] [address] 09/11/2025 9:15 AM EST Office Visit [facility] MEDICINE [address] [place] [address] Name, MD Ernst [address] [place] [address] documented as of this encounter Visit Diagnoses Not on filedocumented in this encounter Additional Health Concerns Assessment Noted Time PHQ-9 Depression Total Score: 1 10/06/19 23 9:13 AM EST documented as of this encounter Care Teams Office Employee Relationship Specialty Start Date End Date Name, MD Ernst [address] [place] [address] PCP - General Family Medicine 10/08/15 documented as of this encounter
--- OUTSIDE RECORDS SUMMARY | 2025-07-05 10:21 | XMS_ITS | Encounter Summary ---
Author Organization [facility] Address [address] [place] [address] Care Team Providers Care Coal Tower Operator Name Role Phone Name, Ernst COPE Primary Care Provider [phone] Encounter Details Date Type Department Care Team (Latest Contact Info) Description 04/24/2019 Abstract [facility] CONVERSIONS Dental, Provider, DDS Social History Tobacco [...] Care Team ( st Contact Info) Description 08/28/2025 8:00 AM EST Office Visit [facility] ADULT DENTAL [address] [place] [address] Jennifer Castaneda [address] [place] [address] 09/11/2025 9:15 AM EST Office Visit [facility] MEDICINE [address] [place] [address] NameErnst MD [address] [place] [address] documented as of this encounter Visit Diagnoses Not on filedocumented in this encounter Care Teams Coal Tower Operator Relationship Specialty Start Date End Date Name, MD Ernst [address] [place] [address] PCP - General Family Medicine 10/08/15 documented as of this encounter
--- OUTSIDE RECORDS SUMMARY | 2025-07-05 10:21 | XMS_ITS | Clinical Summary ---
Author Organization [address] [place] [address] Address [address] [place] [address] Phone Care Team Providers Care Entertainment Reporter Name Role Phone Physician, Pcp Unknown Primary [...] ache 03/05/2009 Tobacco use disorder 03/05/2009 Immunizations Immunization Administration Dates Next Due Influenza trivalent, with pr eservative (Fluzone; Afluria) 6mo and older 06/11/2014,07/04/2013,07/20/2012 Tdap Tetanus diptheria acell ular pertussis (Boostrix; Adacel) 7yo and older 03/22/2013 Surgical History Surgery Date Site/Laterality Comments OTHER SURGICAL HISTORY - PROCEDURE: HISTORICAL EAR SURGERY; COMMENT: TM tubes - bilateral OTHER SURGICAL HISTORY PROCEDURE: [place] ESOPHAGOSCOPY FLEXIBLE TRANSORAL DIAGNOSTIC; COMMENT: GERD resolved after H.pylori treatment COLONOSCOPY 06/17/2010 PROCEDURE: [place] COLONOSCOPY STOMA DX INCLUDING COLLJ SPEC SPX [...] Health Maintenance Due Date Last Done Comments Colorectal Cancer Screening: Colonoscopy 1965 Hepatitis A Vaccines (1 of 2 - Risk 2-dose series) 1983 Pneumococcal Vaccine: 50+ Years (1 of 2 - PCV) 1983 RSV Immunization Adult Patients (1 - Risk 50-74 years 1-dose series) 2014 Zoster Vaccines (1 of 2) 2014 HIV Screening 07/30/2024 Hepatitis C Screening 07/30/2024 [...] Most Recently Relevant to Health Maintenance Insurance [employer] [place] [employer] [address] [place] [address] Care Teams Entertainment Reporter Relationship Specialty Start Date End Date Physician, Pcp Unknown PCP - General 07/30/24
--- OUTSIDE RECORDS SUMMARY | 2025-07-05 10:21 | XMS_ITS | Encounter Summary ---
Author Organization [facility] Address [address] [place] [address] Care Team Providers Care Pnp Name Role Phone Name, Ernst COPE Primary Care Provider [phone] Encounter Details Date Type Department Care Team (Latest Contact Info) Description 10/13/2020 Abstract [facility] CONVERSIONS Dental, Provider, DDS Social History [...] Description 08/28/2025 8:00 AM EST Office Visit [facility] ADULT DENTAL [address] [place] [address] [place] Castanedaaris [address] [place] [address] 09/11/2025 9:15 AM EST Office Visit [facility] MEDICINE [address] [place] [address] NameErnst MD [address] [place] [address] documented as of this encounter Visit Diagnoses Not on filedocumented in this encounter Care Teams Pnp Relationship Specialty Start Date End Date Name, MD Ernst [address] [place] [address] PCP - General Family Medicine 10/08/15 documented as of this encounter
--- OUTSIDE RECORDS SUMMARY | 2025-07-05 10:21 | XMS_ITS | Encounter Summary ---
Author Organization [employer] [facility] Address [address] [place] [address] Care Team Providers Care Furnace Puncher Name Role Phone Name, Ernst COPE Primary Care Provider [phone] Encounter Details Date Type Department Care Team (Latest Contact Info) Description 04/07/2022 Abstract [facility] CONVERSIONS Dental, Provider, DDS Social History Tobacco [...] Description 08/28/2025 8:00 AM EST Office Visit [facility] ADULT DENTAL [address] [place] [address] [place] Castanedaaris [address] [place] [address] 09/11/2025 9:15 AM EST Office Visit [facility] MEDICINE [address] [place] [address] NameErnst MD [address] [place] [address] documented as of this encounter Visit Diagnoses Not on filedocumented in this encounter Care Teams Furnace Puncher Relationship Specialty Start Date End Date Name, MD Ernst [address] [place] [address] PCP - General Family Medicine 10/08/15 documented as of this encounter
--- OUTSIDE RECORDS SUMMARY | 2025-07-05 10:21 | XMS_ITS | Encounter Summary ---
Author Organization [employer] Address [address] [place] [address] 7 [place] [address] Care Team Providers Care Occupational Therapy Assistant Name Role Phone Name, Ernst COPE Primary Care Provider [phone] Reason for Visit * Reason Onset Date Comments Nurse Triage 07/03/2025 Encounter Details Date Type Department Care Team ([facility] Contact Info) Description 07/03/[address] [facility] MEDICINE [address] [place], [place] [phone] Name, MD Ernst [address] [place] [address] Nurse Triage Social History Tobacco Use Types Packs/Day Years [...] encounter Miscellaneous Notes * Telephone Encounter - Haley Wilcox RN - 07/03/2025 2:58 PM EST TC placed to pt via S food equipment service technician (ID#[id number]) for triage. No answer, LVM to call office back and ask to speak to the triage nurses. * Telephone Encounter - Janeth Taveras - 07/03/2025 1:04 PM EST Symptom: Leg Pain - Not From Injury Outcome: Schedule an urgent appointment (within 1 hour) or talk to a nurse or provider soon Reason: Severe pain now The caller accepted this outcome. Contact pt at [phone] (equatorial guinean) documented in this encounter Plan of Treatment Upcoming Encounters Date Type Department Care Team (Late st Contact Info) Description 08/28/2025 8:00 AM EST Office Visit [facility] ADULT DENTAL [address] [place] [address] Leonel, Jennifer [address] [place] [address] 09/11/2025 9:15 AM EST Office Visit [facility] MEDICINE [address] [place] [address] Name, [place] [address] documented as of this encounter Visit Diagnoses Not on filedocumented in this encounter Additional Health Concerns Assessment Noted Time PHQ-9 Depression Total Score: 13 025 12:08 PM EST documented as of this encounter Care Teams Occupational Therapy Assistant Relationship Specialty Start Date End Date Name, [place] [address] PCP - General Family Medicine 10/08/15 documented as of this encounter
--- OUTSIDE RECORDS SUMMARY | 2025-07-05 10:21 | XMS_ITS | Patient Health Record ---
Author Organization [facility] Address [address] [place] [address] Care Team Providers Care Infection Control Practitioner Name Role Phone Robert Ferrara Jr Unavailable [phone] Reason For Referral No Information Plan Of Treatment No Information
--- OUTSIDE RECORDS SUMMARY | 2025-07-05 10:21 | XMS_ITS | Encounter Summary ---
Author Organization [employer] Address [address] [place] [address] Care Team Providers Care Telephone Clerks Supervisor Name Role Phone Name, Ernst COPE Primary Care Provider [phone] Encounter Details Date Type Department Care Team ([facility] Contact Info) Description 05/30/2025 Results Follow-Up [facility] [address] [place], [place] [phone] Mane Christianson MD [address] [place] [address] XR Foot 3+ Views Right Social History Tobacco Use Types Packs/Day Years [...] 08/28/2025 8:00 AM EST Office Visit [facility] [address] [place] [address] Leonel, Jennifer [address] [place] [address] 09/11/2025 9:15 AM EST Office Visit [facility] [address] [place] [address] NameErnst MD [address] [place] [address] documented as of this encounter Visit Diagnoses Not on filedocumented in this encounter Additional Health Concerns Assessment Noted Time PHQ-9 Depression Total Score: 13 025 12:08 PM EST documented as of this encounter Care Teams Telephone Clerks Supervisor Relationship Specialty Start Date End Date Name, MD Ernst [address] [place] [id number] PCP - General Family Medicine 10/08/15 documented as of this encounter
--- OUTSIDE RECORDS SUMMARY | 2025-07-05 10:21 | XMS_ITS | Encounter Summary ---
Author Organization [employer] Address [address] [place] [address], [place] [address] Care Team Providers Care Central Supply Worker Name Role Phone NameErnst MD Primary Care Provider [phone] Encounter Details Date Type Department Care Team (Late st Contact Info) Description 01/23/2023 Abstract [facility] [address] [place] [phone] Ernst Ramirez MD [address] [place] [id number] Social History Tobacco Use Types Packs/Day Years [...] Description 08/28/2025 8:00 AM EST Office Visit [facility] [address] [place] [phone] Freedom Castanedaaris [address] [place] [address] 09/11/2025 9:15 AM EST Office Visit [facility] [address] [place] [phone] Ernst Ramirez MD [address] [place] [address] documented as of this encounter Procedures Procedure Name Priority Date/Time Associated Diagnosis Comments COLONOSCOPY Routine 05/25/2022 12:47 PM EDT documented in this encounter Results * Colonoscopy (05/25/2022 12:47 PM EDT) Colonoscopy Normal Normal Narrative Chiquis Tripp - 05/25/2022 12:47 PM EDT [place] 5 [place] [facility] [place] Historical Provider HEALTH MAINTENANCE Final Result documented in this encounter Visit Diagnoses Not on filedocumented in this encounter Additional Health Concerns Assessment Noted Time PHQ-9 Depression Total Score: 1 10/06/19 23 9:13 AM EST documented as of this encounter Care Teams Central Supply Worker Relationship Specialty Start Date End Date Name, MD Ernst [address] [place] [address] PCP - General Family Medicine 10/08/15 documented as of this encounter
== END 2025-07-05 10:17 | disposition home or self-care (01) ==
LOC: HO.XRAY 10:16
PROVIDERS: PCP Internal Medicine Geriatric Medicine; Visit Provider Family Medicine
DX: M25.561 Pain in right knee (principal); M25.562 Pain in left knee; G89.29 Other chronic pain
CPT/HCPCS: 73562

== ENCOUNTER → 2025-07-05 10:21 | Outpatient (BNV) | payer OTHER, SELFPAY | PROVIDERS: PCP Internal Medicine Geriatric Medicine; Visit Provider Radiology Diagnostic Ultrasound | DX: M25.561 Pain in right knee (principal); M25.562 Pain in left knee | CPT/HCPCS: 73562 ==